=== PATIENT | female | born 1950 | race Hispanic/Latino ===

== ENCOUNTER → 2018-05-18 | Outpatient (CLI) | payer MEDICARE ==
[~2018-05-18] MED LIST: CRESTOR40 MG PO; LISINOPRIL5 MG PO; METFORMIN HCL500 MG PO
--- NOTE | 2018-05-18 10:44 | Diagnostic Imaging Report ---
Exam: Bilateral knees 3 views each History: Pain with walking Comparison: None. Findings: Left: No acute, displaced fracture or dislocation. Mild tricompartmental joint space narrowing and marginal osteophytosis. Atherosclerotic vascular calcifications. Soft tissues otherwise unremarkable. Right: No acute, displaced fracture or dislocation. Mild medial compartment predominant tricompartmental degenerative changes with marginal osteophytosis and joint space narrowing. Atherosclerotic vascular calcifications. No joint effusion. Impression: Symmetric bilateral mild tricompartmental osteoarthrosis. No acute osseous abnormalities. Atherosclerotic vascular disease. Signed by: Dr. Crow Mars M.D. on 05/18/2018 10:41 AM
== END ==
LOC: CARD 08:44
PROVIDERS: ATTEND Family Medicine
DX: I73.9 Peripheral vascular disease, unspecified (principal)
CPT/HCPCS: 93922; 93925

== ENCOUNTER → 2018-11-13 | Outpatient (CLI) | payer MEDICARE ==
--- NOTE | 2018-11-13 12:39 | Diagnostic Imaging Report ---
EXAMINATION: RIBS UNILAT W/CXR INDICATION: Left rib pain COMPARISON: Chest radiograph 05/21/2018 FINDINGS: LINES/TUBES:None LUNGS:The lungs are moderately inflated. Mild left lung base subsegmental atelectasis. No focal consolidation or pulmonary edema. PLEURA:No pleural effusion or pneumothorax. MEDIASTINUM:The cardiomediastinal silhouette appears normal in size and shape. BONES/SOFT TISSUES:No displaced rib fractures. ABDOMEN:No free air under the diaphragm. IMPRESSION: No displaced rib fracture. Subsegmental atelectasis at the left lung base. Signed by: Stacia Castelan MD on 11/13/2018 12:36 PM
--- NOTE | 2018-11-13 12:42 | Diagnostic Imaging Report ---
EXAMINATION: FOOT LEFT COMPLETE INDICATION: Left foot pain COMPARISON: None FINDINGS: Diffuse osteopenia. Diffuse soft tissue swelling. No acute fracture or dislocation. There is early callus formation at the lateral aspect of the shaft of the fifth metatarsal, consistent with healing fracture. Scattered degenerative changes. IMPRESSION: Early callus formation at the lateral aspect of the shaft of the fifth metatarsal consistent with healing fracture. Diffuse osteopenia and soft tissue swelling with no acute osseous injury. Signed by: Stacia Castelan MD on 11/13/2018 12:38 PM
== END ==
LOC: RAD 10:44
PROVIDERS: ATTEND Family Medicine
DX: R07.89 Other chest pain (principal); M79.672 Pain in left foot
CPT/HCPCS: 71101

== ENCOUNTER 2018-11-15 09:43 | Inpatient (IN) | payer MEDICARE ==
[~2018-11-15] VITALS: Ht 157.5 cm; Wt 101.2 kg
[2018-11-15] MEDS ORDERED: SODIUM CHLORIDE 0.9% 1000ML 1,000 ML IV STA (10:25)
[2018-11-15] MEDS ORDERED: KETOROLAC TROMETHAMINE 30 MG/ML VIAL IM ONE (11:00)
[2018-11-15] MEDS ORDERED: PIPERACILLIN/TAZO 2.25 GM 50 ML IV ONE (11:00)
[2018-11-15] MEDS ORDERED: ONDANSETRON HCL INJ 2MG/ML 2ML 2 MG/ML VIAL IV ONE (11:00)
[2018-11-15] MEDS ORDERED: VANCOMYCIN 1GM/NS 250 ML 250 ML IV ONE (11:30)
--- NOTE | 2018-11-15 12:00 | Diagnostic Imaging Report ---
Left tib-fib series, 2 views. History: Left lower extremity pain. Findings: There is diffuse soft tissue swelling and vascular calcification. The bones are osteopenic. There is no evidence of fracture or dislocation. There are no lytic or sclerotic lesions. Degenerative changes are noted in the knee and ankle joint. IMPRESSION: Diffuse soft tissue swelling and vascular calcification without acute osseous abnormality. Signed by: Perez Junior on 11/15/2018 11:56 AM
--- NOTE | 2018-11-15 12:03 | Diagnostic Imaging Report ---
Left foot, 3 views. History: Left foot pain. Findings: There is diffuse soft tissue swelling and gas or calcification. The bones are diffusely osteopenic. There is deformity of the left fifth metatarsal midshaft with no definite fracture line and possible surrounding callus. There are no lytic or sclerotic lesions. There are diffuse degenerative changes. Small plantar calcaneal spur is present. IMPRESSION: Left fifth metatarsal deformity, subacute versus chronic injury, difficult to determine acuity due to osteopenia. Recommend clinical correlation. Diffuse soft tissue swelling and vascular calcifications are noted. Signed by: Perez Junior on 11/15/2018 12:00 PM
--- NOTE | 2018-11-15 12:24 | Diagnostic Imaging Report ---
Left ankle, 3 views. History: Left ankle pain. Findings: There is diffuse soft tissue swelling and gas or calcification. The bones are diffusely osteopenic. There is no evidence of fracture or dislocation. There are no lytic or sclerotic lesions. There are mild degenerative changes. A plantar calcaneal spur is present. IMPRESSION: Soft tissue swelling and vascular calcifications without acute osseous abnormality. Signed by: Perez Junior on 11/15/2018 12:21 PM
[2018-11-15 12:30] LABS: BASOPHILS # (AUTO) 0.1 (0.0-0.1); BASOPHILS % 0.6 % (0.0-1.0); EOSINOPHILS # (AUTO) 0.1 (0.0-0.4); EOSINOPHILS % 0.4 % (0.0-6.0); HEMATOCRIT 38.9 % (34.2-44.1); HEMOGLOBIN 12.2 g/dL (12.0-16.0); LYMPHOCYTES # (AUTO) 2.6 (1.0-3.2); LYMPHOCYTES % 19.8 % (18.0-39.1); MEAN CORPUSCULAR HEMOGLOBIN 28.4 pg (28-32); MEAN CORPUSCULAR HGB CONC 31.4 g/dL (31-35); MEAN CORPUSCULAR VOLUME 90.5 fL (81-99); MONOCYTES % 7.4 % (4.4-11.3); NEUTROPHILS # (AUTO) 8.9 (2.1-6.9); NEUTROPHILS % 67.1 % (38.7-80.0); PLATELET COUNT 341 x10e3/uL (140-360); RED CELL DISTRIBUTION WIDTH 14.6 % (11.7-14.4)
[2018-11-15 12:48] LABS: INR 0.99; PARTIAL THROMBOPLASTIN TIME 31.7 seconds (23.8-35.5); PROTHROMBIN TIME 13.6 seconds (11.9-14.5)
[2018-11-15 12:55] LABS: ALBUMIN 2.3 g/dL (3.5-5.0); ALBUMIN/GLOBULIN RATIO 0.4 (0.8-2.0); ANION GAP 18.8 mmol/L (8-16); CALCIUM 10.3 mg/dL (8.4-10.2); CREATININE, SERUM 0.95 mg/dL (0.57-1.11); MAGNESIUM 1.2 MG/DL (1.3-2.1); POTASSIUM 3.8 mmol/L (3.5-5.1)
[2018-11-15] MEDS ORDERED: SODIUM CHLORIDE 0.9% 1000ML 1,000 ML IV SCH (13:42)
[2018-11-15] MEDS ORDERED: ONDANSETRON HCL INJ 2MG/ML 2ML 2 MG/ML VIAL IV PRN (13:45)
[2018-11-15] MEDS ORDERED: MORPHINE SULFATE 2 MG/ML SYR 1ML IV PRN (13:45)
[2018-11-15 14:28] LABS: BILIRUBIN,URINE SMALL (NEGATIVE); CLARITY,URINE SL CLOUDY (CLEAR); COLOR,URINE YELLOW (YELLOW); KETONES,URINE TRACE (NEGATIVE); LEUKOCYTE ESTERASE ,URINE SMALL (NEGATIVE); NITRITE,URINE NEGATIVE (NEGATIVE); PROTEIN,URINE DIPSTICK TRACE (NEGATIVE); URINE UROBILINOGEN 0.2 mg/dL (0.2 - 1)
[2018-11-15] MEDS ORDERED: VANCOMYCIN 1GM/NS 250 ML 250 ML IV SCH ×2 (14:30→21:00)
[2018-11-15] MEDS ORDERED: DEXTROSE 50% SYRINGE 50 ML IV PRN (14:30)
[2018-11-15 14:43] LABS: BACTERIA,URINE MODERATE /HPF; EPITHELIAL CELLS,URINE MODERATE /LPF; RBC,URINE 0-5 /HPF (0-5)
--- NOTE | 2018-11-15 15:15 | NUR ---
PT NOTED TO BE HYPOTENSIVE; / RUE AND / LUE, PT ASYMPTOMATIC, INFORMED ARNAV STEVEN AND RECEIVED ORDERS TO GIVE 1000 ML NS BOLUS AT THIS TIME; WILL CONTINUE TO MONITOR.
[2018-11-15] MEDS ORDERED: SODIUM CHLORIDE 0.9% 1000ML 1,000 ML ONE (15:17)
[2018-11-15] MEDS ORDERED: MAGNESIUM SULF 1GRAM/DEXTROSE 100 ML IV ONE (15:45)
[2018-11-15] MEDS: SODIUM CHLORIDE 0.9% 1000ML 1,000 ML IV SCH (16:58)
[2018-11-15] MEDS: INSULIN REGULAR, HUMAN 100 UNIT/1 ML 3ML VIAL SQ SCH ×2 (17:30→21:00)
--- NOTE | 2018-11-15 19:00 | NUR ---
PATIENT IS A NEW ADMIT THAT ARRIVED VIA STRETCHER. PATIENT IS AWAKE AND TALKING . PATIENT IS RESTING COMFORTABLY IN THE BED. BED IS IN THE LOWEST POSITION AND CALL MATTHEWS IS WITHIN REACH. WILL CONTINUE TO MONITOR PATIENT.
[2018-11-15 19:05] VITALS: BP 97/65
[2018-11-15 19:47] VITALS: BP 97/65
[2018-11-15 20:00] VITALS: BP 89/67
[2018-11-15] MEDS: PIPER-TAZ 3.375 GM 50 ML IV SCH (20:52)
[2018-11-15] MEDS: APIXABAN 5 MG TABLET PO SCH (20:52)
[2018-11-15] MEDS ORDERED: NON-FORMULARY MEDICATION (Rosuvastatin Calcium (Crestor) 40 MG) PO SCH (21:00)
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
--- NOTE | 2018-11-15 22:48 | History and Physical ---
PRIMARY CARE PHYSICIAN: Dr. Alex Dumont. CHIEF COMPLAINT: Left lower extremity pain and swelling. HISTORY OF PRESENT ILLNESS: This is a 68-year-old female with past medical history of hypertension, diabetes type 2 complicated by PVDs, high cholesterol, and a long history of DVT about 40 years ago. She presented with left lower extremity redness, swelling, and pain that has been going on for 2 weeks per patient. She failed outpatient p.o. antibiotic treatment with clindamycin and Bactrim. She was sent by her PCP for worsening PVDs and cellulitis. Upon arrival to the ER, her temperature was 101.5, pulse was 129, and blood pressure 127/67. Sepsis due to cellulitis PAST MEDICAL HISTORY: 1. Hypertension. 2. Diabetes type 2 with PVDs. 3. High cholesterol. 4. A 40-year history of chronic DVT. PAST SURGICAL HISTORY: She had 2 C sections, right eye cataract, and hernia repair. FAMILY MEDICAL HISTORY: Father had heart disease. Does not know of mother's medical conditions. SOCIAL HISTORY: She denies any tobacco use, alcohol, or drug use. She lives with her and son. She is retired. ALLERGIES: SHE IS ALLERGIC TO A STATIN. REVIEW OF SYSTEMS: GENERAL: No acute distress. HEENT: No head trauma. LUNGS: No shortness of breath or cough. CARDIOVASCULAR: No chest pain or palpitations. GI: No nausea, vomiting. NEUROLOGIC: Alert and oriented. MUSCULOSKELETAL: Left lower extremity redness and pain with ambulation. SKIN: Redness of the left lower extremity, bruising, multiple rashes on the lower extremities and healing rash and a small hematoma on the camara of her left leg. PHYSICAL ASSESSMENT: VITAL SIGNS: Temperature is 101.5, pulse is 129, respirations 20, blood pressure , pulse ox 96% on 2 L O2 via nasal cannula. GENERAL: No acute distress, fever. HEENT: Normocephalic. NECK: Supple and midline. Atraumatic. LUNGS: Clear to auscultation. CARDIOVASCULAR: Normal rate and rhythm. GI: Soft and nontender. NEURO: Alert, awake, oriented x3. MUSCULOSKELETAL: She uses walker. Left lower extremity edema, redness, and pain. SKIN: Multiple healing rashes on bilateral lower extremities. Left lower extremities with redness and hematoma on the camara. Swelling of the heel noted. LABORATORY DATA: WBC 13.22, hemoglobin 12.2, platelets 341. Sodium 137, potassium 3.8, CO2 of 22, anion gap 18.8. Bun is 12, creatinine is 0.95. Estimated GFR 59, glucose 146. BNP is 33.9, globulin is 5.6. PT 13.6, INR 0.99, aPTT 31.7. UA, clarity is cloudy, trace protein and ketones. Small leukocyte esterase, 11 to 20 WBCs and moderate bacteria. Blood cultures are pending. IMAGING: X-ray of the lower extremity shows diffuse soft tissue swelling and vascular calcification without acute osseous abnormalities. Ankle x-ray shows same thing with soft tissue swelling. Venous Doppler preliminary report showed chronic DVT, but we will await for final studies. IMPRESSION AND PLAN: 1. Sepsis due to left lower extremity cellulitis. At present on admission, blood culture sent, started on IV fluids, IV antibiotics. We will check lactic acid. We will monitor on cardiac telemetry. 2. Failed outpatient treatment of cellulitis. We will continue with vancomycin and Zosyn for cellulitis. Also, suspect peripheral vascular diseases. Dr. Ndiaye has been consulted for evaluation of further workup. 3. Hypertension. We will continue with lisinopril. 4. Diabetes type 2. We will continue with Accu-Chek a.c. and at bedtime with sliding scale insulin coverage. 5. Hyperlipidemia, states is allergic to statins. 6. History of peripheral vascular diseases per PCP. We will have Dr. Ndiaye evaluate. 7. Tachycardia, sinus, likely due to sepsis. We will continue with IV fluid hydration and antibiotics and monitor. 8. Deep venous thrombosis prophylaxis where we will hold chemical anticoagulation due to possible vascular workup. 9. Morbid obesity with a BMI of 36.4. Needs lifestyle modification. Dictated by GEORGE Chew Javi Blake MD MY/MODL /[id number]
[2018-11-15] MEDS: VANCOMYCIN 1GM/NS 250 ML 250 ML IV SCH (23:50)
[2018-11-16] VITALS (8 sets, daily range): BP systolic 111–133; BP diastolic 56–97
[2018-11-16] MEDS: SODIUM CHLORIDE 0.9% 1000ML 1,000 ML IV SCH ×3 (01:45→21:15)
[2018-11-16] MEDS: PIPER-TAZ 3.375 GM 50 ML IV SCH ×4 (05:27→21:15)
[2018-11-16 05:53] LABS: BASOPHILS % 0.5 % (0.0-1.0); EOSINOPHILS # (AUTO) 0.1 (0.0-0.4); EOSINOPHILS % 1.4 % (0.0-6.0); LYMPHOCYTES # (AUTO) 1.7 (1.0-3.2); LYMPHOCYTES % 21.8 % (18.0-39.1); MEAN CORPUSCULAR HEMOGLOBIN 28.6 pg (28-32); MEAN CORPUSCULAR HGB CONC 30.7 g/dL (31-35); MEAN CORPUSCULAR VOLUME 93.2 fL (81-99); MONOCYTES # (AUTO) 0.6 (0.2-0.8); MONOCYTES % 7.3 % (4.4-11.3); NEUTROPHILS % 64.3 % (38.7-80.0); PLATELET COUNT 280 x10e3/uL (140-360); RED BLOOD COUNT 3.22 x10e6/uL (3.6-5.1); RED CELL DISTRIBUTION WIDTH 14.6 % (11.7-14.4)
[2018-11-16 06:01] LABS: HEMOGLOBIN 9.2 g/dL (12.0-16.0)
[2018-11-16 06:11] LABS: ALANINE AMINOTRANSFERASE 12 IU/L (0-55); ALBUMIN 1.7 g/dL (3.5-5.0); ALBUMIN/GLOBULIN RATIO 0.4 (0.8-2.0); ALKALINE PHOSPHATASE 123 IU/L (40-150); ANION GAP 13.6 mmol/L (8-16); BLOOD UREA NITROGEN 13 mg/dL (7-26); BUN/CREATININE RATIO 14 (6-25); CALCIUM 8.7 mg/dL (8.4-10.2); CARBON DIOXIDE 21 mmol/L (22-29); CHLORIDE 105 mmol/L (98-107); EST GLOMERULAR FILTRATION RATE > 60 ML/MIN (60-); GLUCOSE 109 mg/dL (74-118); POTASSIUM 3.6 mmol/L (3.5-5.1); SODIUM 136 mmol/L (136-145)
--- NOTE | 2018-11-16 07:15 | NUR ---
received am report from nurse and morning rounds done. pt is sleeping with no s/s of distress. call light is within reach and side rails are up
--- NOTE | 2018-11-16 07:20 | NUR ---
report given to day nurse. patient is resting comfortably in bed. bed is in lowest position and call light is within reach.
[2018-11-16] MEDS: INSULIN REGULAR, HUMAN 100 UNIT/1 ML 3ML VIAL SQ SCH ×4 (07:30→20:40)
[2018-11-16] MEDS ORDERED: NON-FORMULARY MEDICATION (Lisinopril 5 MG) PO SCH (09:00)
[2018-11-16 09:25] LABS: EOSINOPHILS % (MANUAL) 1 % (0-7); LYMPHOCYTES % (MANUAL) 32 % (19-48)
[2018-11-16 09:26] LABS: PLATELET ESTIMATE ADEQUATE; PLATELET MORPHOLOGY COMMENT NORMAL; RBC MORPHOLOGY COMMENT NORMAL
[2018-11-16 09:27] LABS: MONOCYTES % (MANUAL) 4 % (3.4-9.0); NEUTROPHILS % (MANUAL) 63 % (40-74)
[2018-11-16] MEDS: APIXABAN 5 MG TABLET PO SCH (09:29)
[2018-11-16] MEDS: LISINOPRIL 2.5 MG TAB PO SCH (09:30)
[2018-11-16] MEDS ORDERED: APIXABAN 5 MG TABLET PO SCH (13:45)
[2018-11-16] MEDS: VANCOMYCIN 1GM/NS 250 ML 250 ML IV SCH (13:50)
--- NOTE | 2018-11-16 19:19 | Progress Note ---
DATE: 11/16/2018 CHIEF COMPLAINT: Left lower extremity pain and edema. SUBJECTIVE: Left lower extremity redness improved. Pain mildly improved, rating it 8/10. Still unable to walk. No other reports. PHYSICAL EXAMINATION: VITAL SIGNS: Temperature 99.4, pulse is 113, respirations 18, blood pressure is 131/57, and pulse ox is 90% on 2 liters of O2. GENERAL: No acute distress. HEENT: Normocephalic and atraumatic. LUNGS: Clear to auscultation. CARDIOVASCULAR: Normal rate and rhythm. ABDOMEN: Soft and nontender. NEUROLOGIC: Alert, awake, and oriented x3. MUSCULOSKELETAL: Left lower extremity edema noted +2 with redness and bruising. SKIN: Healing rash is noted on the bilateral lower extremities. Small hematoma noted on the camara of the left lower extremity. Redness improving in the lower extremities. LABORATORY DATA: WBC is 7.72, hemoglobin 9.2, hematocrit 30, and platelets 280. Sodium 136, potassium 3.6, BUN is 13, creatinine 0.9, estimated GFR greater than 60, and lactic acid 10. IMPRESSION: 1. Sepsis on admission due to failed outpatient left lower extremity cellulitis. Continue with IV antibiotics, lactic acid within normal limits, we will continue IV fluid hydration. 2. Hypertension, stable on lisinopril. 3. Acute deep vein thrombosis on the femoral vein. We will await Cardiology recommendations. 4. Diabetes type 2. Accu-Chek before meals and at bedtime with sliding scale insulin coverage. 5. High cholesterol. She is allergic to statin. Lifestyle modifications. 6. History of peripheral arterial disease. Further workup per Dr. Ndiaye. 7. Morbid obesity with BMI of 36.4. Lifestyle modification. 8. Anemia with a hemoglobin of 9.2. Likely due to hemodilution. We will continue to monitor. Pending fecal occult blood. PLAN: Continue IV antibiotics, IV fluids and pending echocardiogram. Further recommendations per Cardiology. Dictated by GEORGE Chew Javi Blake MD MY/MODL /[id number]
[2018-11-16] MEDS: ACETAMINOPHEN/CODEINE 300MG - 30MG TAB PO PRN (20:40)
--- NOTE | 2018-11-16 20:40 | NUR ---
PATIENT IS AOX3, NO SIGNS OF DISTRESS NOTED. FAMILY MEMBERS PRESENT AT BEDSIDE AND PATIENT VOICES PAIN OF 8 AND WAS MEDICATED ORDERED. BED IS IN LOWEST POSITION AND LOCKED BOTH SIDE RAILS ARE UP, CALL LIGHT WITHIN REACH, WILL CONTINUE TO MONITOR.
--- NOTE | 2018-11-16 22:14 | Progress Note ---
DATE: 11/16/2018 Cardiology Progress Note SUBJECTIVE: Zaynab denies of any chest discomfort or shortness of breath today. Her leg edema is stable bilaterally. The erythema to the left leg is improving. She has no other complaints today. She denies any gross bleeding that she has observed so far. OBJECTIVE: VITAL SIGNS: Temperature 99.4, heart rate 113, blood pressure 131/57, respiratory rate 18, and O2 saturation 90%. BMI 36. GENERAL: In no acute distress, alert. NECK: No JVD. CHEST: Clear to auscultation. CARDIOVASCULAR: Regular rate and rhythm. Normal S1 and S2. No S3 or S4. ABDOMEN: Soft, nontender. Bowel sounds positive. EXTREMITIES: With 1+ edema in bilateral lower extremities. SKIN: With erythema, particularly most pronounced to the left lower half of leg and ecchymosis to the left anterior camara. NEUROLOGIC: Normal speech. PSYCHIATRIC: Normal affect and mood. CARDIOVASCULAR MEDICATIONS: Reviewed. Lisinopril mg daily. Eliquis 10 mg every 12 hours, which will be held. Zosyn and vancomycin. STUDIES: Reviewed. Sodium 134, potassium 3.6, chloride 105, bicarbonate 21, BUN 13, creatinine 0.9, glucose 109. White blood cells 7.7, hemoglobin 9.2, platelets 280. INR 0.9. AST 14, ALT 12, total bilirubin 0.7. ASSESSMENT: A 68-year-old woman presents with left leg cellulitis, [id number] common femoral vein with partial thrombosis and bilateral chronic popliteal vein thrombosis re-cannulized, diabetes mellitus type 2, hypertension, dyslipidemia, morbid obesity, and arterial Doppler concerning for outflow dz to B posterior tibial arteries. Noted to have acute hemoglobin drop from 12 to 9 in the setting of recent anticoagulation initiation. RECOMMENDATIONS: 1. Fecal occult blood test. 2. Continue to monitor H and H closely. 3. Consider GI consultation. 4. Hold Eliquis for now given possible acute GI bleed. 5. If H and H drops less than 7, consider PRBC transfusion. 6. Continue rest of cardiovascular medications. 7. Further recommendations to follow pending the patient's clinical course, particularly with a new finding of acute hemoglobin drop workup. Srinivas Khalil MD AFV/MODL /[id number] MTDD
[2018-11-17] VITALS (9 sets, daily range): BP systolic 90–123; BP diastolic 49–60
[2018-11-17] MEDS: VANCOMYCIN 1GM/NS 250 ML 250 ML IV SCH (01:01)
[2018-11-17] MEDS: SODIUM CHLORIDE 0.9% 1000ML 1,000 ML IV SCH (05:02)
[2018-11-17 06:11] LABS: BASOPHILS # (AUTO) 0.1 (0.0-0.1); BASOPHILS % 0.6 % (0.0-1.0); EOSINOPHILS # (AUTO) 0.2 (0.0-0.4); EOSINOPHILS % 2.1 % (0.0-6.0); HEMATOCRIT 32.1 % (34.2-44.1); HEMOGLOBIN 9.6 g/dL (12.0-16.0); LYMPHOCYTES % 25.5 % (18.0-39.1); MEAN CORPUSCULAR HEMOGLOBIN 28.5 pg (28-32); MEAN CORPUSCULAR HGB CONC 29.9 g/dL (31-35); MEAN CORPUSCULAR VOLUME 95.3 fL (81-99); MONOCYTES # (AUTO) 0.7 (0.2-0.8); MONOCYTES % 8.8 % (4.4-11.3); NEUTROPHILS # (AUTO) 4.6 (2.1-6.9); NEUTROPHILS % 57.5 % (38.7-80.0); PLATELET COUNT 294 x10e3/uL (140-360); RED BLOOD COUNT 3.37 x10e6/uL (3.6-5.1); RED CELL DISTRIBUTION WIDTH 14.6 % (11.7-14.4)
[2018-11-17] MEDS: PIPER-TAZ 3.375 GM 50 ML IV SCH ×3 (06:22→22:00)
[2018-11-17 06:29] LABS: ANION GAP 15.6 mmol/L (8-16); BLOOD UREA NITROGEN 8 mg/dL (7-26); BUN/CREATININE RATIO 9 (6-25); CALCIUM 8.8 mg/dL (8.4-10.2); CARBON DIOXIDE 20 mmol/L (22-29); CHLORIDE 106 mmol/L (98-107); CREATININE, SERUM 0.89 mg/dL (0.57-1.11); EST GLOMERULAR FILTRATION RATE > 60 ML/MIN (60-); GLUCOSE 104 mg/dL (74-118); POTASSIUM 3.6 mmol/L (3.5-5.1); SODIUM 138 mmol/L (136-145)
--- NOTE | 2018-11-17 07:00 | NUR ---
RECEIVED REPORT FROM OFF GOING NURSE. WALKING ROUNDS DONE. PATIENT IS RESTING IN BED. NO ACUTE DISTRESS NOTED. FAMILY MEMBER AT BEDSIDE. CALL LIGHT WITHIN REACH. BED IN THE LOWEST POSITION.
[2018-11-17] MEDS: INSULIN REGULAR, HUMAN 100 UNIT/1 ML 3ML VIAL SQ SCH ×4 (07:30→20:44)
[2018-11-17] MEDS: LISINOPRIL 2.5 MG TAB PO SCH (08:44)
[2018-11-17] MEDS ORDERED: LACTULOSE SYRUP 20 GM/30 ML UDC PO NR (12:00)
--- NOTE | 2018-11-17 12:30 | NUR ---
NOTIFIED PATIENT THAT HUMAN RESOURCE ADVISER ORDERED A ONE TIME DOSE OF LACTULOSE, PER PATIENT SHE WILL LIKE TO WAIT UNTIL DAUGHTER GETS HERE.
--- NOTE | 2018-11-17 12:41 | Progress Note ---
DATE: 11/17/2018 Cardiology Progress Note SUBJECTIVE: Denies chest pain or shortness of breath, lightheadedness or syncope. Denies any gross bleeding. Can encourage the patient on importance of fecal occult blood testing KASHMIR, pending this resuming anticoagulation if negative. OBJECTIVE: VITAL SIGNS: Temperature 97.5, heart rate 103, blood pressure 106/60, respiratory rate 18, and O2 saturation 95%. GENERAL: No acute distress. Alert. NECK: No JVD. CHEST: Clear to auscultation. CARDIOVASCULAR: Regular rate and rhythm. Normal S1 and S2. No S3 or S4. ABDOMEN: Soft, nontender. Bowel sounds positive. EXTREMITIES: 1+ edema to bilateral lower extremities. Left lower leg erythema and ecchymosis in the anterior left camara. CARDIOVASCULAR MEDICATIONS: Reviewed. 1. Lisinopril 5 mg daily. 2. Eliquis 10 mg every 12 hours, currently on hold, pending FOBT check. STUDIES: Reviewed. Sodium 138, potassium 3.6, chloride 106, bicarbonate 20, BUN 8, creatinine 0.89, glucose 106. White blood cell 7.9, hemoglobin 9.6, stable compared to yesterday at 9.2, platelets 294. INR is 0.9, PT 13.6, PTT 31.7. AST 14, ALT 12, alkaline phosphatase 123, total bilirubin 0.7. ASSESSMENT: A 68-year-old woman, presents with left leg cellulitis and ecchymosis, chronic popliteal recanalized thrombosis bilaterally and right bknhu-er-[id number] common femoral vein deep vein thrombosis, acute drop in hemoglobin, sepsis, hypertension. RECOMMENDATIONS: 1. Hold anticoagulants, pending FOBT, resume if negative. 2. Continue antibiotics. 3. Continue antihypertensives. 4. No arrhythmias on telemetry, so far in sinus rhythm and sinus tachycardia observed. Srinivas Khalil MD AFTy/PRECIOUS /[id number]
--- NOTE | 2018-11-17 13:22 | NUR ---
NOTIFIED DR. SNOW'S ORACLE SOA DEVELOPER, ABOUT VANC TROUGH BEING 22.6. PER ORACLE SOA DEVELOPER CHANGE CURRENT DOSE TO Q24H INSTEAD OF Q12H, STARTING TOMORROW AT 0100. ORDER CHANGED.
--- NOTE | 2018-11-17 13:27 | Progress Note ---
DATE: 11/17/2018 CHIEF COMPLAINT: Left lower extremity edema and pain. SUBJECTIVE: Left lower extremity redness is improving. Still pain with ambulation. She was noted to have hypoxia on room air at rest and with exertion. PHYSICAL EXAMINATION: VITAL SIGNS: Temperature is 99.8, pulse is 116, respirations 18, blood pressure is 106/53, and pulse ox is 79 on room air and 92 on nasal cannula. GENERAL: No acute distress. HEENT: Normocephalic and atraumatic with PERRLA. LUNGS: Decreased breath sounds. CARDIOVASCULAR: Normal rate and rhythm. Generalized edema noted. ABDOMEN: Soft and nontender. Obese. NEUROLOGIC: Alert, awake, and oriented x3. MUSCULOSKELETAL: Left lower extremity edema, greater than the right. Active ROM. Unable to walk due to pain. SKIN: Has healing rash on bilateral lower extremities. Left lower extremity arrhythmia is improving. Hematoma noted on camara. LABORATORY DATA: WBC is 7.99, hemoglobin is 9.6, hematocrit is 32.1, and platelet is 294. Sodium is 138, potassium is 3.6, CO2 is 20, creatinine is 0.89, estimated GFR is greater than 60. Blood sugar is well controlled. IMPRESSION: 1. Sepsis on admission due to left lower extremity cellulitis. Failed outpatient p.o. treatment. We will continue with IV antibiotics and IV fluid hydration. 2. Hypertension, stable. We will discontinue lisinopril for now. 3. Acute deep venous thrombosis. We will await on Cardiology recommendation on anticoagulation due to anemia. 4. Anemia. Hemoglobin 9.6. Pending fecal occult and we will monitor closely. 5. Diabetes type 2. We will continue sliding scale insulin coverage. 6. High cholesterol. Family reports allergy to statin. We will continue lifestyle modifications. 7. History of peripheral arterial disease. Defer workup to Dr. Ndiaye. 8. Morbid obesity with BMI of 36, lifestyle modification. 9. Hypoxia, on room air. A 79% on room air noted. We will check chest x-ray, pending echocardiogram, also noted generalized edema. We will decrease IV fluid. Dictated by GEORGE Chew Nedraching Uche Blake MD MY/MODL /[id number]
--- NOTE | 2018-11-17 14:58 | Diagnostic Imaging Report ---
EXAMINATION: CHEST SINGLE (PORTABLE) INDICATION: ^hypoxia ^[id number] ^[id number] COMPARISON: RIBS x-ray 11/13/2018 FINDINGS: AP view TUBES and LINES: None. LUNGS: Lungs are well inflated. Bilateral reticular opacities of the lungs, mainly in the perihilar regions and left lower lobe. PLEURA: No pleural effusion or pneumothorax. HEART AND MEDIASTINUM: Stable mild enlargement of the cardiac silhouette. BONES AND SOFT TISSUES: No acute osseous lesion. Soft tissues are unremarkable. UPPER ABDOMEN: No free air under the diaphragm. IMPRESSION: Interval development of bilateral reticulations of the lungs are suggestive of pulmonary edema. Superimposed left lower lobe pneumonia cannot be excluded. Continue to follow-up. Signed by: Dr. Nataly Chambers M.D. on 11/17/2018 2:55 PM
[2018-11-17] MEDS ORDERED: FUROSEMIDE INJ 10 MG/ML 2 ML VIAL IV NR (15:30)
[2018-11-17] MEDS: ACETAMINOPHEN 325 MG TAB PO PRN (15:52)
[2018-11-17] MEDS: DOCUSATE SODIUM 100 MG CAP PO SCH (17:33)
--- NOTE | 2018-11-17 19:26 | NUR ---
Report given to oncoming nurse. Walking rounds done. Patient is resting in bed. No acute distress noted at this time. Family at bedside. Call light within reach. Bed in the lowest position.
--- NOTE | 2018-11-17 19:48 | NUR ---
RECEIVED PT IN BED AOX3 DENIES PAIN RESPIRATIONS ARE EVEN AND UNLABORED .LEFT AC 20 G S/L LEFT HEEL RED AND SWOLLEN LOWER BILATERAL LEGS ARE SWOLLEN.TELE #12 ST .CALL LIGHT WITH IN REACH .CONTINUE TO MONITOR
[2018-11-18] VITALS (17 sets, daily range): BP systolic 89–112; BP diastolic 42–70
[2018-11-18] MEDS: VANCOMYCIN 1GM/NS 250 ML 250 ML IV SCH (01:00)
[2018-11-18] MEDS: PIPER-TAZ 3.375 GM 50 ML IV SCH ×3 (06:00→21:10)
--- NOTE | 2018-11-18 07:00 | NUR ---
RECEIVED PATIENT RESTING IN BED. NO ACUTE DISTRESS NOTED, RESPIRATIONS EVEN AND UNLABORED. CALL LIGHT WITHIN REACH. BED IN THE LOWEST POSITION.
--- NOTE | 2018-11-18 07:18 | NUR ---
PT RESTED DURING THE NIGHT .DENIES PAIN .FAMILY ATTHE BEDSIDE .CALL LIGHT WITH IN REACH .BEDSIDE REPORT GIVEN TO THE ONCOMING NURSE
[2018-11-18] MEDS: INSULIN REGULAR, HUMAN 100 UNIT/1 ML 3ML VIAL SQ SCH ×4 (07:30→21:00)
[2018-11-18] MEDS: DOCUSATE SODIUM 100 MG CAP PO SCH ×2 (08:48→16:54)
[2018-11-18] MEDS: LISINOPRIL 2.5 MG TAB PO SCH (08:56)
[2018-11-18 13:28] LABS: BASOPHILS % 0.4 % (0.0-1.0); EOSINOPHILS # (AUTO) 0.2 (0.0-0.4); EOSINOPHILS % 1.9 % (0.0-6.0); HEMATOCRIT 33.8 % (34.2-44.1); HEMOGLOBIN 10.4 g/dL (12.0-16.0); LYMPHOCYTES # (AUTO) 1.5 (1.0-3.2); LYMPHOCYTES % 14.1 % (18.0-39.1); MEAN CORPUSCULAR HEMOGLOBIN 28.3 pg (28-32); MEAN CORPUSCULAR HGB CONC 30.8 g/dL (31-35); MEAN CORPUSCULAR VOLUME 92.1 fL (81-99); MONOCYTES # (AUTO) 0.7 (0.2-0.8); MONOCYTES % 6.8 % (4.4-11.3); NEUTROPHILS # (AUTO) 8.1 (2.1-6.9); NEUTROPHILS % 74.4 % (38.7-80.0); PLATELET COUNT 380 x10e3/uL (140-360); RED BLOOD COUNT 3.67 x10e6/uL (3.6-5.1); RED CELL DISTRIBUTION WIDTH 14.6 % (11.7-14.4)
--- NOTE | 2018-11-18 13:36 | Progress Note ---
DATE: 11/18/2018 CHIEF COMPLAINT: Bilateral lower extremity edema and left lower extremity redness and pain. SUBJECTIVE: Seen sitting up in a recliner. Generalized edema is improved. She denies any shortness of breath, fever, chills, nausea, or vomiting. Oxygen is 90% on room air. PHYSICAL EXAMINATION: VITAL SIGNS: Temperature is 97.6, pulse is 118, respirations 20, blood pressure 96/50, and pulse ox is 90% on room air. GENERAL: No acute distress. HEENT: Normocephalic and atraumatic. LUNGS: Clear to auscultation. CARDIOVASCULAR: Normal rate and rhythm. Edema is improving. ABDOMEN: Soft and nontender. NEUROLOGIC: Alert, awake, and oriented x3. MUSCULOSKELETAL: Left lower extremity edema greater than right, redness noted and has charcoal feet. SKIN: Has a healing rash on her right lower extremity. Left lower extremity noted redness, hematoma noted on camara. IMAGING AND LABORATORY DATA: Imaging done on 11/17/2018 showed interval development of pulmonary edema and superimposed left lower lobe pneumonia could not be excluded. Labs have been reviewed. Stool occult is positive, but no visible blood. IMPRESSION: 1. Sepsis on admission due to left lower extremity cellulitis. We will continue with IV antibiotics and stop IV fluid hydration. 2. Hypertension, now hypotensive. 3. Pulmonary edema, likely due to diastolic congestive heart failure. We will start on Lasix 20 mg p.o. and repeat chest x-ray. 4. Acute deep venous thrombosis. We will repeat CBC today. 5. Anemia. Hemoglobin yesterday was 9.6. Fecal occult culture was positive. We will repeat CBC today and monitor the need for GI workup. 6. Diabetes type 2. We will continue with sliding scale insulin coverage. 7. High cholesterol. Lifestyle modifications as she is allergic to statins. 8. History of peripheral arterial disease/peripheral vascular disease. Defer workup to Dr. Ndiaye with Cardiology. 9. Morbid obesity with BMI of 36. Lifestyle modifications discussed. PLAN: We will repeat CBC today, and chest x-ray. We will start on Lasix. Dictated by GEORGE Chew Nedraching Uche Blake MD MY/MODL /[id number]
--- NOTE | 2018-11-18 14:06 | Progress Note ---
DATE: 11/18/2018 Cardiology Progress Note SUBJECTIVE: Nauseated and vomiting. Denies any chest pain or shortness of breath. OBJECTIVE: VITAL SIGNS: Temperature 97.6, heart rate 119, blood pressure 96/50, respiratory rate 20, and O2 saturation 98%. GENERAL: In mild distress. NECK: No JVD. CHEST: Clear to auscultation. CARDIOVASCULAR: Regular rate and rhythm. Normal S1 and S2. No S3 or S4, ABDOMEN: Soft. Bowel sounds positive. EXTREMITIES: With 2+ edema. Erythema to left leg. Ecchymosis to left anterior camara. CARDIOVASCULAR MEDICATIONS: Reviewed. Lisinopril 5 mg daily, Eliquis on hold 10 mg every 12 hours. STUDIES: Sodium 138, potassium 3.6, chloride 106, bicarbonate 20, BUN 8, creatinine 0.89, and glucose 104. Occult BT positive. White blood cell 7.9, hemoglobin 9.6, and platelets 294. INR 0.9, PT 13.6, and PTT 31.7. AST 14, ALT 12, alkaline phosphatase 123, and total bilirubin 0.7. ASSESSMENT: 1. 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 2. Left leg cellulitis. 3. Hypertension. 4. Diabetes. 5. Dyslipidemia. RECOMMENDATIONS: Discussed indications, alternatives, risks, and benefits for IVC filter placement given GI bleed and indication for anticoagulation with proximal iliofemoral thrombosis. The patient's family voiced understanding and agreed to proceed. We will schedule. For now, continue to hold anticoagulation, consider GI consultation, and continue rest of cardiovascular medications. MD DAVID Graves/PRECIOUS /[id number]
[2018-11-18] MEDS ORDERED: LIDOCAINE HCL 2% LOCAL 20 ML VIAL ONE (14:12)
[2018-11-18] MEDS ORDERED: HEPARIN SOD/SOD CHLORIDE 2,000 ML ONE (14:12)
[2018-11-18] MEDS ORDERED: HEPARIN SOD (PORCINE) 1000 UNIT/ML 30ML ONE (14:17)
[2018-11-18] MEDS ORDERED: FENTANYL CITRATE/PF 100MCG/2 ML INJ ONE (14:17)
[2018-11-18] MEDS ORDERED: IOPAMIDOL 370 MG/ML 200 ML INFUS..BTL INJ ONE (14:17)
[2018-11-18] MEDS ORDERED: MIDAZOLAM HCL 2 MG/2 ML VIAL ONE (14:17)
[2018-11-18] MEDS ORDERED: NITROGLYCERIN/D5W 200 MCG/ML 0 ML ONE (14:17)
[2018-11-18] MEDS ORDERED: SODIUM CHLORIDE 0.9% 1000ML 1,000 ML ONE (14:17)
--- NOTE | 2018-11-18 14:28 | NUR ---
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
[2018-11-18] MEDS ORDERED: ATROPINE SULFATE 0.1 MG/ML 10ML SYR ONE (15:34)
--- NOTE | 2018-11-18 16:00 | NUR ---
RECEIVED PATIENT FROM SPECIFICATION MANAGER. VITAL SIGNS DONE AT THIS TIME. BILATERAL PEDAL PULSES ASSESSED AND WEAK.
--- NOTE | 2018-11-18 16:15 | NUR ---
VS AND PEDAL PULSES ASSESSED BILATERALLY. PULSES ARE WEAK, NO CHANGE FROM INITIAL ASSESSMENT.
[2018-11-18 16:44] LABS: EOSINOPHILS % (MANUAL) 1 % (0-7); HYPOCHROMASIA SLIGHT; LYMPHOCYTES % (MANUAL) 13 % (19-48); MONOCYTES % (MANUAL) 7 % (3.4-9.0); NEUTROPHILS % (MANUAL) 76 % (40-74); PROMYELOCYTES % (MANUAL) 2 % (0-0)
[2018-11-18 16:45] LABS: PLATELET ESTIMATE SLIGHTLY INCREASED; PLATELET MORPHOLOGY COMMENT FEW EDTA CLUMPING; RBC MORPHOLOGY COMMENT NORMAL
--- NOTE | 2018-11-18 17:37 | Operative Report ---
DATE OF PROCEDURE: 11/18/2018 SURGEON: Srinivas Khalil MD PROCEDURE INDICATION: The patient with iliofemoral DVT, acute presenting with hemoglobin drop after initiating anticoagulation and fecal occult blood test positive consistent with GI bleed limiting anticoagulation. PROCEDURES PERFORMED: 1. Retrievable Sterling IVC filter implant via femoral approach (Marlene vena cava filter reference catalog number [id number], which is an MRI conditional lot number [id number], implant date 11/18/2018). 2. Venogram. 3. Manual pressure hemostasis. PROCEDURE COMPLICATIONS: None. ESTIMATED BLOOD LOSS: Less than 15 mL. PROCEDURE SUMMARY: After consent was obtained, the patient was prepped and draped in a sterile fashion. The left femoral site was locally infiltrated with 2% lidocaine and access was obtained using a micropuncture kit. Initial access was arterial, however, therefore a 4-Kinyarwanda small sheath was advanced and access was obtained. The IVC filter delivery sheath was advanced over a leading J-wire. After confirmation of renal vein right and left position, it was decided to implant the device infrarenally with retrieval of the system of the delivery system once the filter was positioned, just inside the tip of the liver sheath. Once completely on sheath then position confirmed the device was unhooked and freed up. Position was again confirmed with a venogram and successful adequate position in the infrarenal IVC. Manual pressure hemostasis was applied to the left femoral site. CONCLUSION: Successful delivery of Marlene retrievable IVC filter via femoral approach. RECOMMENDATIONS: Once GI workup completed and if reversible etiology for bleeding can be treated, the patient becomes candidate for anticoagulation. I have advised the patient as well as family member on IVC filter retrieval via jugular vein approach at a later date. The importance of this was stressed to avoid any late IVC filter related complications. Srinivas Khalil MD AFV/MODL /[id number]
--- NOTE | 2018-11-18 19:09 | NUR ---
REPORT GIVEN TO ONCOMING NURSE. WALKING ROUNDS DONE. PATIENT IS RESTING IN BED. NO ACUTE DISTRESS NOTED. PEDAL PULSES ASSESSED WITH ONCOMING NURSE. CALL LIGHT WITHIN REACH. BED IN THE LOWEST POSITION.
[2018-11-18] MEDS: APIXABAN 5 MG TABLET PO SCH (20:30)
--- NOTE | 2018-11-18 20:30 | NUR ---
PATIENT IN STABLE CONDITION NO SIGNS OF DISTRESS NOTED. NASAL CANNULA INTACT AND RUNNING AT 2 LITERS, PATIENT HEAD OF BED ELEVATED AFTER LYING FLAT FROM PREVIOUS PROCEDURE. SITE ON LEFT GROIN IS DRY AND CLEAN. BED IS LOCKED AND LOW, BOTH SIDE RAILS ARE UP, CALL LIGHT WITHIN REACH, WILL CONTINUE TO MONITOR.
[2018-11-19] VITALS (7 sets, daily range): BP systolic 88–103; BP diastolic 44–56
[2018-11-19] MEDS: VANCOMYCIN 1GM/NS 250 ML 250 ML IV SCH (01:43)
[2018-11-19] MEDS: ACETAMINOPHEN/CODEINE 300MG - 30MG TAB PO PRN (01:44)
[2018-11-19] MEDS: PIPER-TAZ 3.375 GM 50 ML IV SCH ×3 (06:36→21:48)
[2018-11-19] MEDS: INSULIN REGULAR, HUMAN 100 UNIT/1 ML 3ML VIAL SQ SCH ×4 (07:55→21:03)
[2018-11-19] MEDS: DOCUSATE SODIUM 100 MG CAP PO SCH ×2 (08:41→17:41)
[2018-11-19] MEDS: LISINOPRIL 2.5 MG TAB PO SCH (09:00)
[2018-11-19 12:27] LABS: BASOPHILS % 0.5 % (0.0-1.0); EOSINOPHILS # (AUTO) 0.2 (0.0-0.4); EOSINOPHILS % 2.4 % (0.0-6.0); HEMATOCRIT 30.4 % (34.2-44.1); LYMPHOCYTES # (AUTO) 1.3 (1.0-3.2); LYMPHOCYTES % 16.8 % (18.0-39.1); MEAN CORPUSCULAR HEMOGLOBIN 28.6 pg (28-32); MEAN CORPUSCULAR HGB CONC 29.6 g/dL (31-35); MEAN CORPUSCULAR VOLUME 96.5 fL (81-99); MONOCYTES # (AUTO) 0.5 (0.2-0.8); MONOCYTES % 6.5 % (4.4-11.3); NEUTROPHILS # (AUTO) 5.3 (2.1-6.9); NEUTROPHILS % 71.9 % (38.7-80.0); PLATELET COUNT 307 x10e3/uL (140-360); RED BLOOD COUNT 3.15 x10e6/uL (3.6-5.1); RED CELL DISTRIBUTION WIDTH 14.7 % (11.7-14.4)
[2018-11-19 12:52] LABS: ANION GAP 15.3 mmol/L (8-16); CALCIUM 9.1 mg/dL (8.4-10.2); CREATININE, SERUM 1.52 mg/dL (0.57-1.11); POTASSIUM 3.3 mmol/L (3.5-5.1)
[2018-11-19 13:11] LABS: % IRON SATURATION 17 % (15-50); IRON 22 ug/dL (50-170); TOTAL IRON BINDING CAPACITY 127 ug/dL (261-478); TRANSFERRIN 91 mg/dL (180-382)
--- NOTE | 2018-11-19 13:26 | Progress Note ---
DATE: 11/19/2018 CHIEF COMPLAINT: Bilateral lower extremity redness and edema. SUBJECTIVE: Status post IVC filter yesterday, bilateral lower extremity redness still prominent. She reports improving pain of the left lower extremity with ambulation. PHYSICAL EXAMINATION: VITAL SIGNS: Temperature 97.6, pulse is 100, respirations 20, blood pressure 103/47, and pulse ox is 95% on 2 liters of nasal cannula. GENERAL: No acute distress. HEENT: Normocephalic and atraumatic. LUNGS: Clear to auscultation. CARDIOVASCULAR: Normal rate and rhythm. ABDOMEN: Soft and nontender. NEUROLOGIC: Alert, awake, and oriented X3. MUSCULOSKELETAL: Active ROM with bilateral lower extremity edema and redness, Charcot feet noted. SKIN: Has healing rash on the right lower extremity. Left lower extremity noted with redness and hematoma noted on camara. PROCEDURE: IVC filter placed on 11/18/2018. IMPRESSION AND PLAN: 1. Sepsis on admission due to left lower extremity cellulitis. We will continue with IV antibiotics and supportive treatment. 2. Hypertension, now hypotensive. 3. Acute deep vein thrombosis. Cardiology was consulted for vascular workup. IVC filter placed on 11/18/2018. 4. Anemia. Hemoglobin is 10. Fecal occult was positive. We will continue to monitor closely. 5. Diabetes type 2. We will continue with sliding scale insulin coverage. 6. High cholesterol. Lifestyle modification as she is allergic to statin. 7. History of peripheral arterial disease. Defer to Dr. Ndiaye. 8. Morbid obesity with BMI of 36. Lifestyle modifications discussed. We will repeat chest x-ray today. Dictated by GEORGE Chew Javi Blake MD MY/MODL /[id number]
--- NOTE | 2018-11-19 13:29 | Diagnostic Imaging Report ---
EXAMINATION: CHEST SINGLE (PORTABLE) INDICATION: Shortness of breath COMPARISON: Chest radiograph of 11/17/2018 FINDINGS: LINES/TUBES:EKG leads overlie the chest. LUNGS:The lungs are moderately inflated. Again seen are opacities at the left lung base silhouetting the left heart border and partially silhouetting the left hemidiaphragm. Subsegmental atelectasis at the right lung base. PLEURA:No pleural effusion or pneumothorax. MEDIASTINUM:The cardiomediastinal silhouette appears unchanged in size and shape. BONES/SOFT TISSUES:No acute osseous injury. ABDOMEN:No free air under the diaphragm. IMPRESSION: Airspace opacification at the left lung base is concerning for aspiration and/or pneumonia in the proper clinical setting. Signed by: Stacia Castelan MD on 11/19/2018 1:25 PM
--- NOTE | 2018-11-19 14:22 | Progress Note ---
DATE: 11/19/2018 Cardiology Progress Note SUBJECTIVE: Denies any chest pain or shortness of breath. Left leg discomfort improving. OBJECTIVE: VITAL SIGNS: Temperature 97.6, heart rate 100, respiratory rate 20, blood pressure 103/47, and O2 saturation 95% on 2 L/minute nasal cannula. GENERAL: No acute distress. Alert. NECK: No JVD. CHEST: Clear to auscultation. CARDIOVASCULAR: Regular rate and rhythm. Normal S1 and S2. No S3. No S4. ABDOMEN: Soft and nontender. Bowel sounds positive. EXTREMITIES: 2+ edema. Erythema to left leg. CARDIOVASCULAR MEDICATIONS: Reviewed. Eliquis discontinued. Lisinopril 5 mg daily. STUDIES: Reviewed. White blood cells 7.4, hemoglobin 9, and platelets 307. Rest of labs pending. ASSESSMENT: 1. Anemia with fecal occult blood test positive in the setting of significant drop in H and H, pending workup. 2. Right common femoral vein, [id number] deep venous thrombosis and recanalized thrombosis to bilateral popliteal veins, now status post IVC filter retrievable implant on 11/19/2018. 3. Hypertension. 4. Diabetes. 5. Dyslipidemia. 6. Left leg cellulitis. RECOMMENDATIONS: 1. Continue antibiotics. 2. I have discussed with the patient and family members importance of close followup and consideration for retrieval of IVC filter once able to tolerate anticoagulation again. For now, suggest GI evaluation and continue to hold anticoagulation given FOBT positive and H and H drop. Srinivas Khalil MD AFTy/MODBruce /[id number]
[2018-11-19] MEDS: CLINDAMYCIN 300MG 50 ML IV SCH ×2 (17:44→23:55)
--- NOTE | 2018-11-19 19:36 | NUR ---
Received bedside report from day nurse. Patient resting in bed, no s/s of distress or c/o pain at this time. All safety measures in place. Will continue to monitor.
[2018-11-20] VITALS (8 sets, daily range): BP systolic 81–142; BP diastolic 43–68
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
[2018-11-20] MEDS: CLINDAMYCIN 300MG 50 ML IV SCH ×4 (06:14→23:56)
[2018-11-20] MEDS: PIPER-TAZ 3.375 GM 50 ML IV SCH ×3 (06:47→22:59)
[2018-11-20] MEDS: INSULIN REGULAR, HUMAN 100 UNIT/1 ML 3ML VIAL SQ SCH ×4 (07:30→21:00)
[2018-11-20] MEDS ORDERED: ONDANSETRON HCL 4 MG ORAL DISINTEGRATING TAB PO PRN (08:45)
[2018-11-20] MEDS: DOCUSATE SODIUM 100 MG CAP PO SCH ×2 (09:00→17:46)
[2018-11-20] MEDS: LISINOPRIL 2.5 MG TAB PO SCH (09:00)
--- NOTE | 2018-11-20 12:22 | Progress Note ---
DATE: 11/20/2018 Cardiology Progress Note SUBJECTIVE: Denies any chest pain or shortness of breath, status post EGD. OBJECTIVE: VITAL SIGNS: Temperature 96.8, heart rate 104, blood pressure 94/48, respiratory rate 20, and O2 saturation 95%. GENERAL: In no acute distress, alert. NECK: No JVD. CHEST: Clear to auscultation. CARDIOVASCULAR: Regular rate and rhythm. Normal S1, S2. ABDOMEN: Soft. EXTREMITIES: Trace edema to both lower extremities. CARDIOVASCULAR MEDICATIONS: Reviewed. Lisinopril 5 mg daily. STUDIES: Reviewed. Sodium 136, potassium 3.3, chloride 104, bicarbonate 20, BUN 12, creatinine 1.5, glucose 102. White blood cells 7.4, hemoglobin 9, platelets 307. INR is 0.9. ASSESSMENT: 1. A 68-year-old woman with right [id number] deep venous thrombosis to common femoral vein and recanalized chronic thrombosis to both popliteal veins, status post IVC filter in the setting of anemia, positive occult blood test. EGD today with duodenal ulcer reportedly noted. 2. Diabetes. 3. Hypertension. 4. Left leg cellulitis. RECOMMENDATIONS: Continue current cardiovascular medications. Once okay with GI, consider allowing one week off anticoagulation and stable H and H and no gross bleeding, resuming anticoagulation challenge. If tolerated, advice on retrieving IVC filter. The patient encouraged to follow up closely as outpatient for this and advised of the importance to proceed with this if tolerating anticoagulation to avoid late IVC filter placement related complications. MD DAVID Graves/PRECIOUS /[id number]
--- NOTE | 2018-11-20 13:43 | Progress Note ---
DATE: 11/20/2018 CONSULTANTS: 1. Srinivas Khalil MD with Cardiology. 2. Jony Gomez MD with GI. CHIEF COMPLAINT: Bilateral lower extremity redness and edema. SUBJECTIVE: The patient was seen, status post EGD this morning. Awaiting to hear results. Continues to have GI bleed, may consider a colonoscopy. She denies any chest pain, shortness of breath, fever, chills, nausea, or vomiting. She reports left lower extremity pain with ambulation. PHYSICAL EXAMINATION: VITAL SIGNS: Temperature is 97.3, pulse is 105, respirations 20, blood pressure is 98/50, and pulse ox is 95% on 2 liters of oxygen. GENERAL: No acute distress. Obese. HEENT: Normocephalic and atraumatic. LUNGS: Clear to auscultation. CARDIOVASCULAR: Normal rate and rhythm. ABDOMEN: Soft and nontender. Obese. NEUROLOGIC: Alert, awake, and oriented x3. MUSCULOSKELETAL: Active ROM. Pain with ambulation due to Charcot feet. SKIN: Redness in the bilateral lower extremity with left leg more than the right. PROCEDURE: Esophagogastroduodenoscopy this morning. IMPRESSION: 1. Sepsis present on admission due to left lower extremity cellulitis. We will continue with IV antibiotics, vancomycin changed to clindamycin. 2. Hypertension, now hypotensive. We will continue to monitor closely. 3. Anemia with positive fecal occult. Hemoglobin is 9.0. GI was consulted and underwent esophagogastroduodenoscopy today, pending results. 4. Acute deep venous thrombosis. Inferior vena cava filter was placed on 11/18/2018 due to anemia, unable to start anticoagulation. We will await on GI recommendations. 5. Diabetes type 2. We will continue with sliding scale insulin coverage. 6. High cholesterol. Lifestyle modifications. 7. History of peripheral arterial disease. Defer to Dr. Ndiaye. 8. Morbid obesity with a BMI of 36. Lifestyle modifications. PLAN: We will consult PT to evaluate and treat. Repeat labs in a.m. Dictated by GEORGE Chew Yiching Uche Blake MD MY/MODL /[id number]
[2018-11-20] MEDS: PANTOPRAZOLE SOD 40 MG TABEC PO SCH (17:45)
--- NOTE | 2018-11-20 18:35 | NUR ---
patient resting in bed, not in any distress, family at bed side
[2018-11-20] MEDS ORDERED: LIDOCAINE HCL 2% LOCAL INJ 5 ML SDV VIAL INJ ONE (18:37)
[2018-11-20] MEDS ORDERED: PROPOFOL IV EMULSION 10 MG/ML 20 ML VIAL ONE (18:37)
[2018-11-20] MEDS ORDERED: FENTANYL CITRATE/PF 100MCG/2 ML INJ ONE (18:53)
[2018-11-20] MEDS ORDERED: MIDAZOLAM HCL 2 MG/2 ML VIAL ONE (18:53)
[2018-11-21] VITALS (8 sets, daily range): BP systolic 85–125; BP diastolic 48–72
[2018-11-21] MEDS: ACETAMINOPHEN 325 MG TAB PO PRN
[2018-11-21 05:55] LABS: BASOPHILS % 0.4 % (0.0-1.0); EOSINOPHILS # (AUTO) 0.2 (0.0-0.4); HEMATOCRIT 26.1 % (34.2-44.1); HEMOGLOBIN 8.2 g/dL (12.0-16.0); LYMPHOCYTES # (AUTO) 1.7 (1.0-3.2); LYMPHOCYTES % 21.1 % (18.0-39.1); MEAN CORPUSCULAR HEMOGLOBIN 28.9 pg (28-32); MEAN CORPUSCULAR HGB CONC 31.4 g/dL (31-35); MEAN CORPUSCULAR VOLUME 91.9 fL (81-99); MONOCYTES # (AUTO) 0.5 (0.2-0.8); MONOCYTES % 6.7 % (4.4-11.3); NEUTROPHILS # (AUTO) 5.4 (2.1-6.9); NEUTROPHILS % 66.6 % (38.7-80.0); PLATELET COUNT 329 x10e3/uL (140-360); RED BLOOD COUNT 2.84 x10e6/uL (3.6-5.1)
[2018-11-21] MEDS: CLINDAMYCIN 300MG 50 ML IV SCH (06:00)
[2018-11-21] MEDS ORDERED: SODIUM CHLORIDE 0.9% 250ML 250 ML ONE (06:15)
[2018-11-21 06:21] LABS: ANION GAP 15.9 mmol/L (8-16); CALCIUM 8.5 mg/dL (8.4-10.2); CREATININE, SERUM 2.75 mg/dL (0.57-1.11)
[2018-11-21] MEDS: PIPER-TAZ 3.375 GM 50 ML IV SCH ×3 (06:24→21:00)
[2018-11-21 06:35] LABS: POTASSIUM 2.9 mmol/L (3.5-5.1)
[2018-11-21 06:59] LABS: BAND NEUTROPHILS % (MANUAL) 3 %; EOSINOPHILS % (MANUAL) 3 % (0-7); LYMPHOCYTES % (MANUAL) 13 % (19-48); MONOCYTES % (MANUAL) 6 % (3.4-9.0); NEUTROPHILS % (MANUAL) 75 % (40-74); PLATELET ESTIMATE ADEQUATE; PLATELET MORPHOLOGY COMMENT NORMAL; RBC MORPHOLOGY COMMENT NORMAL
[2018-11-21] MEDS: INSULIN REGULAR, HUMAN 100 UNIT/1 ML 3ML VIAL SQ SCH ×4 (07:30→21:01)
--- NOTE | 2018-11-21 07:40 | NUR ---
PATIENT IN STABLE CONDITION WITH NO S/S OF RESPIRATORY DISTRESS. NO PAIN VOICED. TELEMETRY APPLIED. UPON ASSESSMENT, NURSE RADIOLOGIST PRESENT IN ROOM WELL, SKIN TEARS NOTED TO LEFT FOREARM WITH MODERATE AMOUNT OF BLEEDING AND LEFT HAND WITH MINIMUM AMOUNT OF BLEEDING. SKIN TEAR ALSO NOTED TO RIGHT FOREARM WITH NO DRAINAGE NOTED- NEW DRESSING (XEROFORM, GAUZE, AND PAPER TAPE) APPLIED TO ALL SKIN TEAR LOCATIONS. WHEELCHAIR AVAILABLE FOR PATIENT NEAR BEDSIDE. BED ALARM APPLIED. CALL LIGHT IS WITHIN REACH, PATIENT INSTRUCTED TO CALL FOR ASSISTANCE NEEDED.
[2018-11-21] MEDS: DOCUSATE SODIUM 100 MG CAP PO SCH ×2 (08:22→17:25)
[2018-11-21] MEDS: PANTOPRAZOLE SOD 40 MG TABEC PO SCH ×2 (08:22→17:25)
[2018-11-21] MEDS: LISINOPRIL 2.5 MG TAB PO SCH (08:31)
--- NOTE | 2018-11-21 09:27 | NUR ---
PATIENT'S DAUGHTER ON THE UNIT- PATIENT'S DAUGHTER REQUESTED PAPER TAPE TO BE REMOVED. RN REMOVED PAPER TAPE TO LEFT HAND TO PLACE [place] BUT PATIENT'S DAUGHTER STOPPED RN STATING PATIENT IS ALLERGIC TO [place]. PATIENT'S DAUGHTER THAN REQUESTED FOR PAPER TAPE TO BE REAPPLIED TO LEFT HAND AND TO REMAIN ON THE OTHER SKIN TEAR LOCATIONS. DAUGHTER REQUESTED CITIZEN OF [place] SPEAKING NURSE- REPORT GIVEN TO NEW NURSE ON PATIENT'S CARE AND PENDING ORDERS.
--- NOTE | 2018-11-21 09:30 | NUR ---
RECEIVED REPORT FROM PREVIOUS NURSE FOR CONTINUITY OF CARE.
[2018-11-21] MEDS ORDERED: SODIUM CHLORIDE 0.9% 250ML 250 ML IV ONE (09:45)
[2018-11-21] MEDS ORDERED: POTASSIUM CHLORIDE 20 MEQ TAB CR PO ONE ×2 (10:30→12:00)
--- NOTE | 2018-11-21 12:24 | NUR ---
JADEN VIERA IN TO SEE PATIENT. NOTIFIED OF BEING UNABLE TO GET IV LINE. PER RESEARCH PROGRAM INTERN, OBTAIN MIDLINE. RADIOLOGY NOTIFIED NURSE THAT PATIENT NEEDS NEPHROLOGY CLEARANCE AND ADMITTING CLEARANCE TO BE ABLE TO GIVE LINE. NOTIFIED JADEN VIERA, NEW CONSULT RECEIVED FOR DR. RIOJAS. PENDING ON CONSULTATION WITH NEPHROLOGY.
--- NOTE | 2018-11-21 12:36 | Progress Note ---
DATE: 11/21/2018 Cardiology Progress Note SUBJECTIVE: Denies any chest pain or shortness of breath. OBJECTIVE: VITAL SIGNS: Temperature 97.1, heart rate 80, respiratory rate 18, blood pressure 125/72, and O2 saturation 96%. BMI 35. General: No acute distress, alert. NECK: No JVD. CHEST: Clear to auscultation. CARDIOVASCULAR: Regular rate and rhythm. Normal S1, S2. No S3 or S4. Systolic ejection murmur 1/6. ABDOMEN: Soft, nontender. Bowel sounds positive. EXTREMITIES: Trace edema to both lower extremities. SKIN: Erythema to both lower extremities. Ecchymosis to left anterior camara. CARDIOVASCULAR MEDICATIONS: Reviewed. Lisinopril 5 mg daily. On Zosyn and clindamycin antibiotics. STUDIES: Reviewed. Sodium 139, potassium 2.9, chloride 107, bicarbonate 19, BUN 18, creatinine 2.7, and glucose 108. White blood cells 8.1, hemoglobin 8.2, and platelets 329. INR 0.9, PT 13.6, and PTT 31.7. AST 14, ALT 12, total bilirubin 0.7, and alkaline phosphatase 123. ASSESSMENT: 1. A 68-year-old woman, presents with acute on chronic right common femoral vein DVT and recanalized thrombosis of both popliteal veins, status post retrievable IVC filter, Emm[place] filter placement. In the setting of anemia and positive occult blood test, status post upper endoscopy by GI with duodenal ulcer reported. 2. Diabetes mellitus. 3. Hypertension. 4. Left leg cellulitis. 5. Chronic diastolic heart failure. Recommend replete electrolytes. 6. Renal function seems to be worsening with creatinine of 2.7 today. Encourage p.o. hydration and discontinue diuretics. 7. Monitor renal function. If okay with other treating physicians, consider trial of IV fluids and hold lisinopril for now. 8. If no recurrent drop in H and H or gross bleeding noted within seven days, consider resuming Eliquis as an outpatient within the following 2-3 weeks. Followup to consider IVC retrieval. MD DAVID Graves/PRECIOUS /[id number]
[2018-11-21] MEDS: CLINDAMYCIN HCL 150 MG CAP PO SCH ×3 (12:39→23:39)
[2018-11-21] MEDS ORDERED: POTASSIUM CHLORIDE 20 MEQ TAB CR PO STA (14:22)
--- NOTE | 2018-11-21 14:52 | Progress Note ---
DATE: 11/21/2018 CONSULTANTS: 1. Srinivas Khalil MD with Cardiology. 2. Jony Gomez MD with GI. 3. Ezra Knight MD with Nephrology. CHIEF COMPLAINT: Bilateral lower extremity redness and edema. SUBJECTIVE: The patient seems to be a little lethargic today, denies any chest pain, shortness of breath, nausea, or vomiting. Per family, the patient is receiving to drink fluids because she does want to go to the bathroom. Unable to have a peripheral line in, IR has been consulted for midline or PICC line, but due to her LORAINE, may need Nephrology clearance. Daughter is at the bedside. Discussed plan of care. PHYSICAL EXAMINATION: VITAL SIGNS: Temperature is 97.8, pulse is 105, respirations 18, blood pressure is 96/53, and pulse ox is 90%. GENERAL: No acute distress. HEENT: Normocephalic and atraumatic. LUNGS: Clear to auscultation. CARDIOVASCULAR: Normal rate and rhythm. ABDOMEN: Soft and nontender. Obese. NEUROLOGIC: Alert, awake, and oriented x3. Mildly lethargic. MUSCULOSKELETAL: Complaining of right upper extremity pain, which is chronic and also pain with ambulation due to Charcot feet and cellulitis. SKIN: Redness of bilateral lower extremities. Edema is improving. LABORATORY DATA: WBC 8.1, hemoglobin is 8.2, hematocrit is 26.1, and platelet is 329. Sodium is 139, potassium is 2.9, creatinine is 2.75, BUN is 18. Estimated GFR is 17. Blood sugar is controlled. IMPRESSION AND PLAN: 1. Sepsis present on admission due to lower extremity cellulitis. We will continue with clindamycin and Zosyn. 2. LORAINE. Creatinine is 2.[address] IV line and start hydration with IV fluids. Nephrology has been consulted, although this might be due to poor p.o. intake. 3. Hypertension, now hypotensive. We will monitor closely. 4. Anemia with positive fecal occult. Hemoglobin is 8.6. EGD was done and she is started on Protonix. 5. Acute deep venous thrombosis. IVC filter was placed on 11/18/2018. Anticoagulation to start with GI recommendations. 6. Hypokalemia, potassium 2.9. We will replace and check Mag level. 7. Diabetes type 2. We will continue sliding scale insulin. 8. High cholesterol, less modification. 9. History of peripheral vascular diseases. Refer to Dr. Ndiaye. 10. Debility likely due to pain of the lower extremities. Physical Therapy has been consulted. Recommend [facility]. 11. Morbid obesity with BMI of 36. Lifestyle modification. Plan is to place an IV access and hydrate, we will have Nephrology evaluate the patient. Dictated by GEORGE Chew Javi Blake MD MY/MODL /[id number]
--- NOTE | 2018-11-21 16:17 | NUR ---
Nutrition Screen Note RD Recommendation for Physician: - Recommend adding 1800 ADA to current diet 2/2 hx of DM and on insulin Plan of Care: RD following, monitoring for tolerance and adequacy Nutrition reason for involvement: LOS Primary Diagnose(s): abscess or cellulitis of heel, chronic R femoral DVT PMH: CHF, DM2, HTN, PVD Ht: 62 in Wt: 194 lb(questionable wt) BMI: 35.5 kg/m2 IBW: [address] Assessment: (11/21) Pt seen today for LOS, discussed during am rounds. Pt reports fair appetite, states "I'm not a big eater", noted 25-75% meal intake. pt denies wt loss, reports UBW of 135#- questionable current wt in chart of 194# noted. Pt denies GI distress or difficulties chewing or swallowing. No questions or concerns at this time. Chart reviewed, per MD noted pt s/p EGD with duodenal ulcer noted. Labs and meds reviewed. Will monitor and continue to follow. Current Diet: Cardiac Diet Tolerance: Tolerating PO Malnutrition Evaluation (11/21/18) The patient does not meet criteria for a specified degree of malnutrition at this time. Will re-evaluate at follow-up as appropriate. Diet Education Needs Assessment: Diet education not indicated. Nutrition Care Level: Low Signed: Lauren Jimenez RD, LD, [facility]
[2018-11-21] MEDS: SODIUM CHLORIDE 0.9% 1000ML 1,000 ML IV SCH (17:27)
[2018-11-21] MEDS: APIXABAN 5 MG TABLET PO SCH (18:27)
--- NOTE | 2018-11-21 18:30 | NUR ---
PATIENT STATED SHE ONLY URINATED ONE TIME TODAY. BLADDER SCANNED PATIENT AND NOTED 268ML. CALLED JADEN NOBLE. SHE STATED THAT IS NOT A LOT OF URINE BUT NURSE CAN STRAIGHT CATH PATIENT FOR URINE SAMPLE. ORDER PLACED IN/.
--- NOTE | 2018-11-21 18:44 | Consultation ---
DATE OF CONSULTATION: 11/21/2018 Nephrology consultation REASON FOR CONSULTATION: Acute kidney injury. HISTORY OF PRESENT ILLNESS: The patient is a 68-year-old woman, admitted on 11/15/2018, for bilateral lower leg cellulitis. She has since been treated with IV vancomycin and IV Zosyn with recent vancomycin trough level of 22.6. She came in with normal serum creatinine which has risen over the last 3 to 4 days. She does have past medical history of diabetes mellitus and hypertension and peripheral vascular disease. The patient speaks only Cambodian and unable to offer history. My information is obtained from review of the chart. It seems like she has also received ketorolac or Toradol injection and was maintained on lisinopril for the hypertension. Metformin that she was taking has been held. There has been no IV iodinated contrast exposure at least during this hospital. She has been running somewhat low blood pressure during this hospitalization. PAST MEDICAL HISTORY: As noted above. Also, has dyslipidemia and a 40-year history of chronic DVTs. PAST SURGICAL HISTORY: C-sections, right eye cataract, and hernia repair. FAMILY HISTORY: Father had heart disease. SOCIAL HISTORY: Denies any tobacco, alcohol, or other drug use. ALLERGIES: STATIN. REVIEW OF SYSTEMS: Unable to obtain from the patient. PHYSICAL EXAMINATION: GENERAL: The patient is lying on her side in bed, in no acute distress. VITAL SIGNS: Blood pressure is 96/53, pulse is 105 per minute. She is afebrile. SKIN: Appears dry. No other lesions. HEENT: Normocephalic, atraumatic head. Oral mucosa appears dry. NECK: Without jugular venous distention. CHEST: Auscultation reveals clear lung green bilaterally. I do not hear any wheezing or crepitations. CARDIOVASCULAR: Normal S1, S2 without any rub or gallop. ABDOMEN: Soft, markedly obese, and pendulous, but appears nontender. EXTREMITIES: Both lower legs bare the kline of inflammation, i.e. redness with very mild non-pitting type chronic edema. NEUROLOGIC: The patient is alert and appears oriented. Appears to move all 4 extremities. IMAGING: Chest x-ray reportedly showing clear lung green and enlarged cardiac shadow. LABORATORY DATA: Most recent labs from today show hemoglobin 8.2, white count normal, and normal platelets. Sodium 139, potassium 2.9, chloride 107, bicarbonate 19, BUN 18, and creatinine 2.7. Total calcium 8.5. Serum creatinine was 0.89 on 5th of this month. A urinalysis on the 3rd of this month showed concentrated urine with an 11-20 cells, 0.5 red cells, only trace protein, IMPRESSION: 1. Acute kidney injury, likely secondary to combination of vancomycin toxicity, IV Toradol, and perhaps contribution from hypotension. 2. Hypokalemia. I believe likely from poor oral intake. I believe the patient is also on Lasix which has been held. 3. Mild metabolic acidosis secondary to above. 4. History of hypertension, presently hypotensive. Lisinopril and metformin have appropriately been withheld. RECOMMENDATION: 1. Keep the patient hydrated with IV fluids, if oral intake is low. 2. Replace potassium by mouth. 3. Avoid all NSAIDs including Toradol, IV iodinated contrast, and known nephrotoxic antibiotics. 4. Keep vancomycin trough level less than 20. 5. Repeat urinalysis and urine protein to creatinine ratio today. 6. Trend renal function daily, looking for improvement. Since this is all acute. 7. Adjust dose of all relevant medication for GFR less than 20 for now. Thank you very much for the opportunity to participate in her care. I will follow her renal function and offer recommendation as needed. Richard Cook MD [facility]/MODL /[id number]
--- NOTE | 2018-11-21 18:50 | NUR ---
STRAIGHT CATHED PATIENT FOR URINE SAMPLE. 450ML NOTED.
--- NOTE | 2018-11-21 19:14 | Progress Note ---
DATE: 11/21/2018 GI Progress Report SUBJECTIVE: The patient is feeling low today, do not feel like eating any food. Denies any abdominal pain. REVIEW OF SYSTEMS: GENERAL: Fatigue and weak. CVS: No chest pain or palpitation. RESPIRATORY: No cough or expectoration. MEDICATIONS: 1. Insulin regular. 2. Intravenous clindamycin. 3. Pantoprazole 40 mg p.o. twice daily. 4. Docusate 100 mg twice daily. 5. Acetaminophen 650 mg every 6 hours as needed. 6. Piperacillin/tazobactam 3.375 g every 8 hours. 7. Apixaban 5 mg twice daily. 8. Zofran 4 mg every 4 hours as needed. 9. Morphine 2 mg every 4 hours as needed. PHYSICAL EXAMINATION: VITAL SIGNS: Temperature 98.8, pulse 100, respirations 18, blood pressure 99/50, and oxygen saturation 95% on room air. GENERAL: Obese body habitus, not in any acute distress. HEENT: Oral mucosa is moist. Anicteric sclerae. ABDOMEN: Soft, protuberant belly, nontender. No palpable mass or hernia. Positive bowel sounds. LABORATORY DATA: Hemoglobin is down to 8.2 from 9.0 on 11/19/2018, WBC 8.10, hematocrit 26.1, and platelet count 329. Sodium 139, potassium 2.9, chloride 107, bicarb 19, BUN 18, and creatinine 2.75, up from 1.52. IMPRESSION: 1. Anemia with heme-positive stool. Upper endoscopy performed yesterday showed mild gastritis, duodenitis with a small cratered duodenal bulb ulcer. Gastric biopsies obtained. Results pending. 2. Recurrent deep vein thrombosis, status post inferior vena cava filter. 3. Left lower extremity cellulitis. PLAN: Although, there is no significant drop in hemoglobin since 11/19/2018. The patient also has not had any bowel movement. I recommended to resume anticoagulation. Eliquis has been restarted. Recommend to continue PPI. Follow up gastric biopsy result. Add Carafate suspension. Regarding constipation, this is also due to use of morphine. I recommend to discontinue Dulcolax instead start senna with docusate two pills every night and MiraLAX in the morning. Jony Gomez MD [facility]/PRECIOUS /[id number]
--- NOTE | 2018-11-21 19:26 | NUR ---
REPORT GIVEN TO ONCOMING NURSE. WALKING ROUNDS DONE. PATIENT IS RESTING IN BED. NO ACUTE DISTRESS NOTED. NO S/S OF PAIN NOTED. CALL LIGHT WITHIN REACH. BED IN THE LOWEST POSITION.
[2018-11-21 19:32] LABS: BILIRUBIN,URINE SMALL (NEGATIVE); CLARITY,URINE SL CLOUDY (CLEAR); COLOR,URINE YELLOW (YELLOW); KETONES,URINE NEGATIVE (NEGATIVE); LEUKOCYTE ESTERASE ,URINE NEGATIVE (NEGATIVE); NITRITE,URINE NEGATIVE (NEGATIVE); PROTEIN,URINE DIPSTICK TRACE (NEGATIVE); URINE UROBILINOGEN 0.2 mg/dL (0.2 - 1)
[2018-11-21 19:36] LABS: AMORPHOUS SEDIMENT,URINE MANY (FEW); BACTERIA,URINE FEW /HPF
--- NOTE | 2018-11-21 19:45 | NUR ---
PT IS RESTING IN BED WITH FAMILY AT BEDSIDE. RESPIRATION IS EVEN AND UNLABORED, NO DISTRESS NOTED. BED IN THE LOWEST POSITION, LOCKED, BED ALARM ON, AND CALL LIGHT WITHIN REACH. WILL CONTINUE TO MONITOR.
[2018-11-21 20:05] LABS: CREATININE,URINE RANDOM 117.31 mg/dL (47-110); TOTAL PROTEIN, URINE 69.8 mg/dL (1-14)
[2018-11-22] VITALS (8 sets, daily range): BP systolic 85–103; BP diastolic 44–58
[2018-11-22] MEDS: CLINDAMYCIN HCL 150 MG CAP PO SCH (05:07)
[2018-11-22] MEDS: PIPER-TAZ 3.375 GM 50 ML IV SCH ×3 (05:07→22:06)
--- NOTE | 2018-11-22 07:00 | NUR ---
Received report from off going nurse. Patient is resting in bed. No acute distress noted. Call light within reach. Bed in the lowest position.
[2018-11-22 07:10] LABS: BASOPHILS # (AUTO) 0.1 (0.0-0.1); BASOPHILS % 0.5 % (0.0-1.0); EOSINOPHILS # (AUTO) 0.3 (0.0-0.4); HEMATOCRIT 28.8 % (34.2-44.1); HEMOGLOBIN 8.5 g/dL (12.0-16.0); LYMPHOCYTES # (AUTO) 2.4 (1.0-3.2); LYMPHOCYTES % 23.6 % (18.0-39.1); MEAN CORPUSCULAR HEMOGLOBIN 27.9 pg (28-32); MEAN CORPUSCULAR HGB CONC 29.5 g/dL (31-35); MEAN CORPUSCULAR VOLUME 94.4 fL (81-99); MONOCYTES # (AUTO) 0.6 (0.2-0.8); MONOCYTES % 5.9 % (4.4-11.3); NEUTROPHILS # (AUTO) 6.3 (2.1-6.9); NEUTROPHILS % 62.8 % (38.7-80.0); PLATELET COUNT 330 x10e3/uL (140-360); RED BLOOD COUNT 3.05 x10e6/uL (3.6-5.1); RED CELL DISTRIBUTION WIDTH 15.3 % (11.7-14.4)
[2018-11-22 07:22] LABS: CREATININE, SERUM 2.98 mg/dL (0.57-1.11)
[2018-11-22] MEDS: INSULIN REGULAR, HUMAN 100 UNIT/1 ML 3ML VIAL SQ SCH ×3 (07:30→16:30)
[2018-11-22] MEDS: PANTOPRAZOLE SOD 40 MG TABEC PO SCH ×2 (09:00→16:41)
[2018-11-22] MEDS: SODIUM CHLORIDE 0.9% 1000ML 1,000 ML IV SCH (09:00)
[2018-11-22] MEDS: APIXABAN 5 MG TABLET PO SCH ×2 (09:00→16:41)
[2018-11-22] MEDS: DOCUSATE SODIUM 100 MG CAP PO SCH ×2 (09:00→16:41)
[2018-11-22] MEDS: CLINDAMYCIN 300MG 50 ML IV SCH ×2 (12:35→17:30)
--- NOTE | 2018-11-22 12:52 | Diagnostic Imaging Report ---
Chest, 1 view, 11/22/2018. History: Shortness of breath. Comparison: 11/19/2018. Findings: The cardiomediastinal silhouette and pulmonary vasculature are within normal limits for a portable exam. Left lower lobe patchy opacity is unchanged. Linear opacities remain in the right mid and lower lung. There are no acute osseous or soft tissue abnormalities. Impression: Linear right and patchy left lower lobe opacities without significant change. Signed by: Perez Junior on 11/22/2018 12:49 PM
--- NOTE | 2018-11-22 15:31 | Progress Note ---
DATE: 11/22/2018 Cardiology Progress Note SUBJECTIVE: Denies chest pain or shortness of breath. OBJECTIVE: VITAL SIGNS: Temperature 97 degrees, heart rate 118, respiratory rate 18, blood pressure 100/58, O2 saturation 97% on 2 L/minute nasal cannula. GENERAL: No acute distress, alert. NECK: No JVD. CHEST: Clear to auscultation. CARDIOVASCULAR: Regular rate and rhythm. Normal S1, S2. ABDOMEN: Soft, nontender. Bowel sounds positive. EXTREMITIES: 1+ edema. SKIN: With erythema to both lower extremities and ecchymosis and left anterior camara. NEURO: Normal speech. MUSCULOSKELETAL: Seems deconditioned. CARDIOVASCULAR MEDICATIONS: Reviewed. Eliquis 5 mg every 12 hours, on Zosyn and clindamycin antibiotics. STUDIES: Reviewed. White blood cells 10, hemoglobin 8.5, stable from yesterday at 8.2, platelets 330. Sodium 138, potassium 4, chloride 108, bicarbonate 17, BUN 19, creatinine 2.98, glucose 88, calcium 8. ASSESSMENT: 1. A 68-year-old woman with acute kidney injury. 2. Diabetes mellitus. 3. Hypertension. 4. Right common femoral vein acute on chronic deep vein thrombosis and chronic recanalized thrombosis of both popliteal veins, status post retrievable IVC filter implant, pending confirmation of tolerance of anticoagulation, recently resumed. 5. Diabetes mellitus, hypertension. 6. Left leg cellulitis. 7. Chronic diastolic heart failure. 8. Morbid obesity. RECOMMENDATIONS: 1. Monitor renal function. If any procedures planned, can hold Eliquis for now and can bridge with Lovenox as needed. 2. Continue rest of cardiovascular medications except diuretic, which the patient is on holiday for given change in renal function. The patient was advised to follow up in the office after two weeks post discharge for further discussions regarding filter retrieval should the patient continue to tolerate anticoagulation. Importance of this in order to avoid late filter related complications has been discussed. Srinivas Khalil MD [facility]/MODL /[id number]
[2018-11-22] MEDS: ONDANSETRON HCL INJ 2MG/ML 2ML 2 MG/ML VIAL IV PRN (16:50)
--- NOTE | 2018-11-22 17:21 | Progress Note ---
DATE: 11/22/2018 CONSULTING PHYSICIANS: 1. Srinivas Khalil MD with Cardiology. 2. Jony Gomez MD with GI. 3. Ezra Knight MD with Nephrology. CHIEF COMPLAINT: Generalized weakness and bilateral lower extremity redness. SUBJECTIVE: The patient is still with generalized weakness, poor appetite, reported tachycardia when getting up with physical therapy this morning. The chest x-ray is unchanged with opacities in the left lower lobe. Daughter at the bedside. Discussed the plan and advised her to encourage p.o. intake. PHYSICAL EXAMINATION: VITAL SIGNS: Temperature 97.0, pulse is 118, respirations 18, blood pressure is 100/58, and pulse ox is 97% on 2 L of oxygen. GENERAL: Generalized weakness and fatigue. HEENT: Normocephalic, atraumatic. LUNGS: Clear to auscultation. Decreased breath sounds in the lower lobes. CARDIOVASCULAR: Regular rate and rhythm. Tachycardic. ABDOMEN: Soft and nontender. Active bowel sounds. Obese. NEUROLOGY: Alert, awake, and oriented x3. Generalized weakness. MUSCULOSKELETAL: Bilateral lower extremity redness and pain, improving. Has Charcot feet on left lower extremity. SKIN: Redness and healing scars on bilateral lower extremities. LABORATORY DATA: WBC 10, hemoglobin 8.5, hematocrit 28.8, and platelet 330. Chemistry; sodium 138, potassium 4.0, chloride 108, CO2 of 17, BUN 19, creatinine 2.98. Estimated GFR 16, calcium 8. UA with trace protein, amorphous sediment noted, and urine creatinine 117.31. ASSESSMENT AND PLAN: 1. Sepsis, present on admission due to lower extremity cellulitis. We will continue on clindamycin and Zosyn. 2. Acute kidney injury, creatinine 2.98. IV fluids started for light hydration. Nephrology has been consulted. UA noted. She is also encouraged to increase her p.o. intake. Glucerna added to supplement. 3. Hypertension, now hypotensive. We will continue to monitor. 4. Sinus tachycardia, likely due to dehydration. We will continue with IV fluid hydration and monitor on Tele. 5. Anemia. Fecal occult is positive. EGD done by GI. She is on Protonix. Hemoglobin stable at 8.5. 6. Acute deep venous thrombosis, status post IVC filter placement on 11/18/2018. Eliquis has been started 5 mg b.i.d. 7. Diabetes type 2. We will continue with sliding scale insulin coverage as needed. 8. High cholesterol. Lifestyle modifications. 9. History of peripheral vascular diseases. Defer to Dr. Ndiaye. 10. Debility, due to lower extremity pain. Physical Therapy has been consulted and they recommend halfway facility. 11. Morbid obesity with BMI of 36. Again, lifestyle modification. PLAN: Plan is to continue with IV fluid hydration and repeat BMP in a.m. Further recommendation per Nephrology. Dictated by GEORGE Chew Javi Blake MD MY/MODL /[id number]
--- NOTE | 2018-11-22 19:12 | NUR ---
PT IS RESTING IN BED. RESPIRATION IS EVEN AND UNLABORED, NO DISTRESS NOTED. BED IN THE LOWEST POSITION, LOCKED, BED ALARM ON, AND CALL LIGHT WITHIN REACH. WILL CONTINUE TO MONITOR.
--- NOTE | 2018-11-22 19:27 | NUR ---
Report given to oncoming nurse. Walking rounds done. Patient is resting in bed. No acute distress noted. Patient turned to right side. Call light within reach. Bed in the lowest position.
--- NOTE | 2018-11-22 22:19 | Diagnostic Imaging Report ---
EXAM: ABDOMEN-1VIEW (KUB) DATE: 11/22/2018 7:26 PM INDICATION: Abdominal distention. COMPARISON: None FINDINGS: LINES/TUBES: None BOWEL PATTERN: There is normal volume of gas within the colon and rectum. No dilated small bowel loops. There is a curvilinear density in the right lower quadrant is concerning Rigler's sign (pneumoperitoneum). SOFT TISSUES: IVC filter projected just lateral to the L2-L3 level. Oval density in the pelvis may represent an enlarged uterus, a full bladder or adnexal mass. LUNG BASES: Not included BONES: No acute findings. Curvilinear calcific densities projected on the proximal right thigh may represent soft tissue calcification. IMPRESSION: Findings concerning for pneumoperitoneum. Recommend further evaluation with CT abdomen pelvis. The patient is currently prepped for a CT scan of abdomen and pelvis. Findings discussed with Poonam from Med/Surg with information relayed to NP. Sushila lorenzo p.katina on 11/22/18. Signed by: Dr. Emeli Joshua M.D. on 11/22/2018 10:36 PM
--- NOTE | 2018-11-22 23:23 | Progress Note ---
DATE: 11/22/2018 GI Progress Report SUBJECTIVE: The patient reports no abdominal pain. Tolerating oral diet. Regular BM. Stools are brown. REVIEW OF SYSTEMS: GENERAL: Admits to some fatigue and weakness. CVS: No chest pain or palpitation. RESPIRATORY: No cough or expectoration. MEDICATIONS: Reviewed as per APR. PHYSICAL EXAMINATION: VITAL SIGNS: Temperature 100.1, pulse 114, respirations 18, blood pressure 102/53 to 85/44, and oxygen saturation 93% on 3 L of nasal cannula. GENERAL: Not in any acute distress. Oral mucosa is moist. ABDOMEN: Protuberant, obese abdomen. Soft, nondistended, and nontender. No mass or hernia. Positive bowel sounds. LABORATORY DATA: Hemoglobin is stable from 8.2 to 8.5. BUN 19 and creatinine has gone up to 2.98 from 2.75. ASSESSMENT: 1. Anemia with heme-positive stool. Upper endoscopy performed on this admission showed a gastritis duodenitis with small cratered duodenal ulcer. Gastric biopsies were obtained, this showed mild reactive gastropathy. No HP infection. 2. Recurrent deep vein thrombosis, status post inferior vena cava filter. She is also on anticoagulant apixaban. 3. Left lower extremity cellulitis, on antibiotic. PLAN: No need to monitor hemoglobin unless the patient has any gross GI bleeding. The patient's hemoglobin is stable, despite starting anticoagulation. Continue PPI for gastritis and duodenal ulcer. Jony Gomez MD [facility]/PRECIOUS /[id number]
[2018-11-23] VITALS (9 sets, daily range): BP systolic 87–116; BP diastolic 37–70
[2018-11-23] MEDS ORDERED: LACTATED RINGER'S 500 ML IV ONE
[2018-11-23] MEDS: CLINDAMYCIN 300MG 50 ML IV SCH ×2 (00:50→05:53)
[2018-11-23] MEDS: LACTATED RINGER'S 1,000 ML IV SCH ×2 (00:50→08:14)
--- NOTE | 2018-11-23 00:57 | Diagnostic Imaging Report ---
EXAM: CT Abdomen and Pelvis WITHOUT contrast INDICATION: Fever. Abdominal pain. Rule out bowel perforation. COMPARISON: None. TECHNIQUE: Abdomen and pelvis were scanned utilizing a multidetector helical scanner from the lung base to the pubic symphysis without administration of IV contrast. Absence of intravenous contrast decreases sensitivity for detection of focal lesions and vascular pathology. Coronal and sagittal reformations were obtained. Routine protocol was performed. IV CONTRAST: None. ORAL CONTRAST: Water RADIATION DOSE: Total DLP: 805.35 mGy*cm Estimated effective dose: (DLP x 0.015 x size factor) mSv COMPLICATIONS: None FINDINGS: A portion of the left hemiabdomen was not included due to patient's body habitus and positioning within the scanner. LINES and TUBES: None. LOWER THORAX: Irregular density in the lung bases, left greater than right may represent atelectasis versus pleural parenchymal scarring. HEPATOBILIARY: The liver is diffuse hypodense compared to the spleen, consistent with diffuse hepatic diffuse hepatic steatosis. No focal hepatic lesions. No biliary ductal dilation. GALLBLADDER: There are stones in the gallbladder. No wall thickening. SPLEEN: No splenomegaly. PANCREAS: No focal masses or ductal dilatation. ADRENALS: No adrenal nodules. KIDNEYS/URETERS: No hydronephrosis. No cystic or solid mass lesions. No stones. Bilateral perinephric stranding. GI TRACT: No abnormal distention, wall thickening, or evidence of bowel obstruction. There are diverticula within the colon without evidence of diverticulitis. Appendix is tentatively identified, without evidence of appendicitis. PELVIC ORGANS/BLADDER: The urinary bladder is markedly distended by high attenuation material, which may reflect extruded contrast, however, no contrast examination has been performed in the Department of radiology within this institution. Hemorrhagic fluid could also have this appearance. LYMPH NODES: No lymphadenopathy. VESSELS: There is moderate atherosclerotic disease in the aorta and major arterial branches. A filter is present within the infrarenal IVC. PERITONEUM / RETROPERITONEUM: No free air or fluid. BONES: Lower thoracic DISH. SOFT TISSUES: Soft tissues: Sedation in the lower anterior abdominal wall. IMPRESSION: 1. No evidence of bowel perforation or pneumoperitoneum. 2. Marked distention of the urinary bladder by high attenuation fluid, possibly excreted contrast versus less likely hemorrhage mixed with urine. 3. Cholelithiasis without evidence of cholecystitis or biliary dilatation. Signed by: Dr. Emeli Joshua M.D. on 11/23/2018 12:53 AM
--- NOTE | 2018-11-23 01:36 | NUR ---
SPOKE TO DR SNOW AND READ CT/PELVIC RESULT. NO NEW ORDERS AT THIS TIME. WILL CONTINUE TO MONITOR.
--- NOTE | 2018-11-23 01:50 | NUR ---
PER DR EDY NARVAEZ FOR RETENTION. WILL CONTINUE TO MONITOR.
--- NOTE | 2018-11-23 02:08 | NUR ---
16FR NARVAEZ INSERTED AND IS DRAINING. WILL CONTINUE TO MONITOR
[2018-11-23 06:50] LABS: BASOPHILS # (AUTO) 0.1 (0.0-0.1); BASOPHILS % 0.6 % (0.0-1.0); EOSINOPHILS # (AUTO) 0.3 (0.0-0.4); EOSINOPHILS % 2.7 % (0.0-6.0); HEMATOCRIT 29.7 % (34.2-44.1); HEMOGLOBIN 9.2 g/dL (12.0-16.0); LYMPHOCYTES # (AUTO) 2.3 (1.0-3.2); LYMPHOCYTES % 21.2 % (18.0-39.1); MEAN CORPUSCULAR HEMOGLOBIN 28.4 pg (28-32); MEAN CORPUSCULAR VOLUME 91.7 fL (81-99); MONOCYTES # (AUTO) 0.6 (0.2-0.8); MONOCYTES % 5.5 % (4.4-11.3); NEUTROPHILS % 63.8 % (38.7-80.0); PLATELET COUNT 361 x10e3/uL (140-360); RED BLOOD COUNT 3.24 x10e6/uL (3.6-5.1); RED CELL DISTRIBUTION WIDTH 15.8 % (11.7-14.4)
--- NOTE | 2018-11-23 06:51 | NUR ---
received report from warehouse shift supervisor RN, pt sleeping comfortably in bed, respirations even and nonlabored, no distress noted, call light within reach, will continue to monitor.
[2018-11-23 06:55] LABS: INR 1.53
[2018-11-23 06:56] LABS: PARTIAL THROMBOPLASTIN TIME 50.1 seconds (23.8-35.5)
[2018-11-23 07:04] LABS: ALBUMIN 1.3 g/dL (3.5-5.0); ANION GAP 17.6 mmol/L (8-16); BILIRUBIN,DIRECT 0.6 mg/dL (0.0-0.5); CALCIUM 7.8 mg/dL (8.4-10.2); CREATININE, SERUM 3.45 mg/dL (0.57-1.11); MAGNESIUM 1.3 MG/DL (1.3-2.1); PHOSPHORUS 3.3 MG/DL (2.3-4.7); POTASSIUM 3.6 mmol/L (3.5-5.1)
[2018-11-23 07:30] LABS: THYROID STIMULATING HORMONE 1.836 uIU/mL (0.350-4.940)
[2018-11-23] MEDS: INSULIN LISPRO 100 UNIT/1 ML 3ML VIAL SQ SCH ×4 (07:30→21:00)
[2018-11-23] MEDS: DOCUSATE SODIUM 100 MG CAP PO SCH ×2 (08:20→16:05)
[2018-11-23] MEDS: PANTOPRAZOLE SOD 40 MG TABEC PO SCH ×2 (08:20→16:04)
[2018-11-23] MEDS ORDERED: PIPER-TAZ 3.375 GM 50 ML IV SCH (09:00)
[2018-11-23] MEDS ORDERED: PANTOPRAZOLE 40 MG 10ML VIAL IV SCH (09:00)
[2018-11-23] MEDS ORDERED: APIXABAN 5 MG TABLET PO SCH (09:00)
--- NOTE | 2018-11-23 09:22 | NUR ---
CALL TO JADEN NOBLE W DR. SNOW FOR PLAN FOR PT. NOTED PT RECOMMENDED SNF.
--- NOTE | 2018-11-23 10:30 | NUR ---
dr conte here request sánchez stay in due to pt having urinary retention
--- NOTE | 2018-11-23 11:19 | NUR ---
spoke with Dr. Blake and informed him of pt's manual blood pressure of 90/50 with elevated heart rate of 115 bpm and lethargy; he states continue to monitor patient and make sure Dr. Fletcher is aware.
[2018-11-23] MEDS: ONDANSETRON HCL INJ 2MG/ML 2ML 2 MG/ML VIAL IV PRN ×2 (13:10→19:06)
[2018-11-23] MEDS: DOXYCYCLINE HYCLATE TABLET 100 MG TAB PO SCH ×2 (13:13→21:30)
--- NOTE | 2018-11-23 15:18 | Diagnostic Imaging Report ---
EXAMINATION: CHEST SINGLE (PORTABLE) INDICATION: Pneumonia COMPARISON: Chest radiograph of 11/22/2018 FINDINGS: LINES/TUBES:EKG leads overlie the chest. LUNGS:The lungs are moderately inflated. Linear opacities at both lung bases, likely subsegmental atelectasis. PLEURA:No pleural effusion or pneumothorax. MEDIASTINUM:The cardiomediastinal silhouette appears normal in size and shape. BONES/SOFT TISSUES:No acute osseous injury. ABDOMEN:No free air under the diaphragm. IMPRESSION: Bibasilar subsegmental atelectasis. No focal pneumonia or pulmonary edema. Signed by: Stacia Castelan MD on 11/23/2018 3:14 PM
[2018-11-23] MEDS: APIXABAN 5 MG TABLET PO SCH (16:05)
[2018-11-23 16:53] LABS: ANION GAP 16.6 mmol/L (8-16); CALCIUM 7.3 mg/dL (8.4-10.2); CREATININE, SERUM 3.57 mg/dL (0.57-1.11); POTASSIUM 3.6 mmol/L (3.5-5.1)
--- NOTE | 2018-11-23 17:27 | Consultation ---
DATE OF CONSULTATION: 11/23/2018 ID Consult REASON FOR CONSULTATION: Low-grade fever despite antibiotics. Thank you, Dr. Blake, for asking me to see this patient. HISTORY OF PRESENT ILLNESS: The patient is a 68-year-old woman, who was referred for low-grade fever, despite antibiotics. She was admitted through the emergency department with left lower extremity cellulitis. She presented to the emergency department on 11/15/2018, with the left lower extremity pain and swelling. The patient has had low-grade fever since yesterday (range 100 to 100.2 degrees Fahrenheit). The patient has left midline, indwelling Mckee catheter and multiple skin tears. She still has residual left lower extremity redness and pain. She denies cough, shortness of breath, diarrhea, and abdominal pain. PAST MEDICAL HISTORY: Diabetes mellitus type 2 with peripheral neuropathy, hypertension, and peripheral artery disease. PAST SURGICAL HISTORY: Cataract surgery, section, and hernia repair. ALLERGIES: ROSUVASTATIN. MEDICATIONS: The current antibiotic is Zosyn 3.375 g IV piggyback q.12 hours. She received clindamycin earlier. IMMUNIZATION: Influenza pneumococcal vaccination status cannot be verified at this time. FAMILY HISTORY: Noncontributory. SOCIAL HISTORY: No alcohol, tobacco, or recreational drug use. REVIEW OF SYSTEMS: As per history of present illness. PHYSICAL EXAMINATION: GENERAL: No acute distress and does not appear toxic. VITAL SIGNS: T-max 100.1, pulse rate 101, respiratory rate 18, blood pressure 95/40, and weight 194 pounds. HEENT: Normocephalic. There is no icterus or injection of conjunctiva. There is no ear or nasal discharge. Moist oral mucosa. No pharyngeal erythema or exudate. NECK: Supple. No meningismus. LUNGS: Good air entry bilaterally. HEART: Normal S1 and S2. Mild tachycardia. ABDOMEN: Soft and nontender. EXTREMITIES: There is edema of the upper and lower extremities with multiple skin tears of the upper extremities. The dorsalis pedis and posterior tibial pulses with palpation in the feet. There is residual erythema, warmth, and tenderness of the left lower extremity. SKIN: As per extremities. There are multiple skin tears. There are multiple skin tears and ecchymosis of the extremities, especially the upper extremities. SOLDERER DIPPER: Awake, alert, and oriented to person, place, and time. There is decreased sensation to monofilament test of the feet. Nonfocal. LABORATORY AND DIAGNOSTICS: WBC 10,900, hemoglobin 9.2, platelets 361,000, neutrophils 63.8, lymphocytes 21.2, monocytes 5.5, eosinophils 2.7, and basophils 0.6. BUN 22, creatinine 3.45, and blood glucose 110. 11/17/2018, vancomycin trough 22.6. 11/15/2018, blood culture, no growth. IMPRESSION: 1. Low-grade fever. 2. Left lower extremity cellulitis. 3. Acute kidney injury on chronic kidney disease. 4. Diabetes mellitus type 2 with peripheral neuropathy, controlled. 5. Peripheral arterial disease. PLAN: 1. Discontinue left forearm midline and Mckee catheter. 2. Change antibiotic to doxycycline 100 mg by mouth twice a day. 3. Mobilize the patient as tolerated. 4. Nephrology and GI consults noted. MD KEVEN Puga/PRECIOUS /[id number]
--- NOTE | 2018-11-23 17:31 | Progress Note ---
DATE: 11/23/2018 CONSULTING PHYSICIANS: 1. Dr. Ndiaye with Cariology. 2. Dr. Gomez with GI. 3. Dr. Knight with Nephrology. 4. Dr. Fletcher with Infectious Disease. CHIEF COMPLAINT: Generalized weakness and bilateral lower extremity redness and edema. SUBJECTIVE: The patient is a little more awake today, continue to encourage her to increase her p.o. intake. No shortness of breath, chest or abdominal pain. Had an episode of nausea and vomiting x1 this morning. PHYSICAL EXAMINATION: VITAL SIGNS: Temperature 99.4, pulse is 120s, blood pressure is 110/70, pulse ox 95%. GENERAL: Generalized weakness and fatigue. HEENT: Normocephalic, atraumatic. LUNGS: Decreased breath sounds. CARDIOVASCULAR: Sinus tachycardia with regular rate and rhythm. ABDOMEN: Soft and nontender. Active bowel sounds. Obese. NEUROLOGY: Alert, awake, oriented x3. Generalized weakness. : Mckee in place for urinary retention. MUSCULOSKELETAL: Bilateral lower extremity redness and pain. SKIN: Redness and rash healing on the bilateral lower extremities. LABORATORY DATA: WBC 10.9, hemoglobin 9.2, hematocrit 29.7, platelet 361. Sodium 139, potassium 3.6, CO2 16, anion gap 17.6, creatinine is 3.45. Estimated GFR is 13. Albumin is 1.3. TSH is 1.83. IMAGING: KUB showed some findings that is concerning for pneumoperitoneum. Recommended for CT of abdomen and pelvis. CT showed no evidence of bowel perforation or pneumoperitoneum, but showed marked distention of urinary bladder and cholelithiasis without cholecystitis or biliary dilation. Mckee catheter was placed and draining clear yellow urine. Chest x-ray shows bibasilar subsegmental atelectasis. No focal pneumonia or pulmonary edema, which is similar to yesterday. ASSESSMENT: 1. Sepsis, present on admission due to lower extremity cellulitis. Infectious Disease has been consulted and switched to doxycycline p.o. 2. Acute kidney injury with creatinine increasing to 3.45. We will continue with IV fluid hydration. Mckee catheter has been placed for urinary retention, Nephrology is on the case and appreciate input. 3. Hypertension, now hypotensive. We will hold BP meds. 4. Sinus tachycardia, likely due to dehydration. We will continue with IV fluid. TSH was within normal limits. 5. Anemia, focal occult is positive. EGD was done by GI on Protonix. Hemoglobin is stable at 9.2 today. 6. Acute deep venous thrombosis, status post IVC filter on 11/18/2018. Continue Eliquis p.o. b.i.d. 7. Diabetes type 2. Continue sliding scale insulin as needed. 8. High cholesterol. 9. History of peripheral vascular diseases. Defer to Dr. Ndiaye. 10. Debility due to lower extremity pain and continue physical therapy. We will need SNF placement upon discharge. 11. Morbid obesity with a BMI of 36. Lifestyle modifications. 12. Deep vein thrombosis prophylaxis, is on Eliquis. PLAN: We will continue current treatment, we will continue with IV fluid and we will do CAT scan of her lower extremities to rule out osteomyelitis. Dictated by GEORGE Chew Javi Blake MD MY/MODL /[id number]
[2018-11-23] MEDS: ACETAMINOPHEN 325 MG TAB PO PRN (18:53)
--- NOTE | 2018-11-23 18:54 | NUR ---
pt vomiting after Tylenol; given IV Morphine and Zofran.
--- NOTE | 2018-11-23 19:25 | NUR ---
Patient received lying in bed. AAO x 3. Family at bedside. Patient had no complaints of pain. Respirations even and non-labored on 3L NC. Mckee catheter draining pale clear yellow urine. Fall precautions implemented. Patient instructed to call for assistance when needed. Call light within reach.
[2018-11-23] MEDS ORDERED: ALBUMIN 25% 25GM 100ML 0.25 GM/ML BTL IV ONE (20:00)
--- NOTE | 2018-11-23 20:25 | NUR ---
Patient noted to be hypotensive BP(70/44), HR(111), Temp (100.4) . Patient slightly lethargic. Dr. Blake notified. Order received for bolus of 500 ml LR. Will continue to monitor patient.
[2018-11-23] MEDS ORDERED: ALBUMIN 25% 25GM 100ML 100 ML IV ONE (20:30)
[2018-11-23] MEDS ORDERED: LACTATED RINGER'S 500 ML IV SCH (20:45)
--- NOTE | 2018-11-23 21:38 | Progress Note ---
DATE: 11/23/2018 Cardiology Progress Note SUBJECTIVE: Denies any chest pain or shortness of breath. Feels lightheaded today. OBJECTIVE: VITAL SIGNS: Temperature 99.7, heart rate 117, blood pressure 92/51, respiratory rate 17, O2 saturation 96%. GENERAL: No acute distress. Alert. NECK: No JVD. CHEST: Clear to auscultation. CARDIOVASCULAR: Regular rate and rhythm. Normal S1, S2. ABDOMEN: Soft, nontender. Bowel sounds positive. EXTREMITIES: 1+ edema. SKIN: Erythema to both lower extremities with ecchymosis to left anterior camara. CARDIOVASCULAR MEDICATIONS: Reviewed, antihypertensive medicines currently and off anticoagulation currently. STUDIES: Reviewed. Sodium 139, potassium 3.6, chloride 109, bicarbonate 16, BUN 22, creatinine 3.45, and glucose 110. White blood cells 10.9, hemoglobin 9.2, and platelets 361. INR 1.5. AST 20, ALT 20, alkaline phosphatase 188, total bilirubin 0.7, PT 19, PTT 50. ASSESSMENT: A 68-year-old woman with metabolic acidosis, acute renal failure, anemia, who presents with leg cellulitis, underlying peripheral artery disease, deep venous thrombosis, undergoing anticoagulation treatment, currently on hold. Status post recent IVC filter placement, fecal occult blood test positive anemia, status post GI evaluation with nonbleeding ulcer. PLAN/RECOMMENDATIONS: 1. Hydration and volume management per Nephrology. The patient's metabolic acidosis noted, anticoagulation on hold, to allow further options regarding renal issues and possible catheterization and procedures as needed. 2. Hold antihypertensives currently, given low normal blood pressure reads. 3. Overall guarded prognosis. Srinivas Khalil MD AFV/MODL /[id number]
--- NOTE | 2018-11-23 22:40 | NUR ---
Patient off floor for CT of Lower Extremity without contrast.
--- NOTE | 2018-11-23 22:45 | NUR ---
Dr. Blake notified of patient's BP (83/50), HR (114) and temperature (98.8F) after bolus administration of 500 ml LR, and urine output of 50 cc since 1929. Order received for another bolus of 500 ml Lactated Ringer.
[2018-11-23] MEDS ORDERED: LACTATED RINGER'S 1,000 ML IV SCH (23:00)
[2018-11-24] VITALS (8 sets, daily range): BP systolic 85–148; BP diastolic 48–73
--- NOTE | 2018-11-24 00:22 | Diagnostic Imaging Report ---
CT scan of the left lower extremity without contrast TECHNIQUE: Standard departmental protocols were used. Limited axial scans were obtained of the left lower extremity from the level of the knee to the foot without administration of contrast medium. Sagittal and coronal reconstructions were obtained. A small portion of the contralateral foot was also imaged. . HISTORY: Pain and swelling. Cellulitis. Concern for abscess. COMPARISON: None. FINDINGS: Bones: No acute fracture or dislocation. Generalized osteopenia. There is cortical erosion of the talus as seen on axial image 145. Soft tissues: Severe muscle atrophy. Diffuse subcutaneous edema with trace fluid, however, no abscess formation. There are phlegmonous inflammatory changes about ankle, particularly along the medial aspect of the tibiotalar joint and talus as seen on axial image 145. Fluid attenuation. Small ankle effusion. Vascular calcifications. Phleboliths. IMPRESSION: Cellulitis. Inflammatory phlegmonous changes about the ankle and midfoot with suspicion for erosion of the talus with concern for osteomyelitis. Recommend further evaluation with MRI of ankle and foot without and with contrast. Signed by: Dr. Emeli Joshua M.D. on 11/24/2018 12:19 AM
[2018-11-24] MEDS: LACTATED RINGER'S 1,000 ML IV SCH ×2 (03:00→10:38)
--- NOTE | 2018-11-24 06:45 | NUR ---
Patient resting comfortably. Walking rounds done. Shift report given to oncoming nurse.
--- NOTE | 2018-11-24 06:49 | NUR ---
received report from plant health manager RN, pt resting in bed, respirations even, nonlabored, call light within reach, no acute distress noted, will continue to monitor.
[2018-11-24] MEDS: INSULIN LISPRO 100 UNIT/1 ML 3ML VIAL SQ SCH ×4 (07:30→20:51)
[2018-11-24] MEDS: DOXYCYCLINE HYCLATE TABLET 100 MG TAB PO SCH (08:18)
[2018-11-24] MEDS: APIXABAN 5 MG TABLET PO SCH (08:18)
[2018-11-24] MEDS: PANTOPRAZOLE SOD 40 MG TABEC PO SCH (08:18)
[2018-11-24] MEDS: DOCUSATE SODIUM 100 MG CAP PO SCH ×2 (08:18→17:35)
[2018-11-24] MEDS ORDERED: DOXYCYCLINE 100MG/NS 100ML 100 ML IV SCH (09:45)
[2018-11-24 09:56] LABS: CALCIUM 7.1 mg/dL (8.4-10.2); CREATININE, SERUM 3.72 mg/dL (0.57-1.11)
[2018-11-24] MEDS ORDERED: SODIUM BICARBONATE 8.4% 50 ML VIAL IV ONE (14:00)
[2018-11-24] MEDS ORDERED: CALCIUM GLUCONATE 10% INJ 9.3 MEQ in SODIUM CHLORIDE 0.9% 100 ML 100 ML IV ONE (14:00)
[2018-11-24] MEDS ORDERED: SODIUM BICARBONATE 8.4% INJ 50 ML SYR IV ONE (14:00)
[2018-11-24] MEDS ORDERED: FUROSEMIDE INJ 10 MG/ML 4 ML VIAL IV ONE (14:00)
--- NOTE | 2018-11-24 15:06 | Progress Note ---
DATE: 11/24/2018 Cardiology Progress Note SUBJECTIVE: Denies any chest pain or shortness of breath. OBJECTIVE: VITAL SIGNS: Temperature 97.6, heart rate 96, respiratory rate 20, blood pressure 93/49, and O2 saturation 96% on nasal cannula 3 L/minute. GENERAL: No acute distress. Alert. NECK: No JVD. CHEST: Clear to auscultation. CARDIOVASCULAR: Regular rate and rhythm. Normal S1 and S2. Systolic ejection murmur. ABDOMEN: Soft and nontender. Bowel sounds positive. EXTREMITIES: 2+ edema and erythema to both lower extremities. CARDIOVASCULAR MEDICATIONS: Reviewed. LR 125 mL/hour IV. Anticoagulation on hold. LABORATORY DATA: White blood cells 10.9, hemoglobin 9.2, and platelets 361. INR 1.5. Sodium 138, potassium 4, chloride 109, bicarbonate 14 trending down, BUN 24, creatinine 3.7 trending up, glucose 106, and calcium 7.1. TELEMETRY: Sinus tachycardia and sinus rhythm. ASSESSMENT: 1. Worsening metabolic acidosis and volume overload as well as worsening creatinine. Nephrology is on board. Continue to hold anticoagulation as needed. If any catheters are being planned, particularly for temporary dialysis should be necessary. 2. Continue to hold antihypertensives given low normal blood pressure rates. 3. Continue hydration trial, but monitor closely for development of pulmonary edema. 4. Regarding the femoral deep venous thrombosis, the patient is status post retrievable IVC filter. 5. FOBT positive anemia and duodenal ulcer, being followed by GI, on PPI. 6. Peripheral artery disease. Defer to outpatient management once condition improved. 7. LVEF hyperdynamic >70%. MD DAVID Graves/PRECIOUS /[id number] DEMARIO
[2018-11-24] MEDS: SODIUM BICARBONATE 8.4% SYRING 75 ML in SODIUM CHLORIDE 0.45% 1,000 ML IV SCH (15:19)
--- NOTE | 2018-11-24 16:16 | Progress Note ---
DATE: 11/24/2018 Renal Progress Note SUBJECTIVE: Followed for acute kidney injury. Creatinine continues to rise, it is at 3.72 today. The patient did have episodes of hypotension yesterday, probably contributing to the rise in creatinine. The patient continues to have sustained acute kidney injury, likely related to acute tubular necrosis, although AIN cannot be ruled out. The patient is getting Protonix 40 mg twice a day and proton pump inhibitors have been associated with acute interstitial nephritis. The patient is nonoliguric. Currently, no urgent indication for dialysis. The patient's bicarb is continuing to trend downward, it is at 14 today. OBJECTIVE: VITAL SIGNS: Have been noted. Last blood pressure is 148/70, pulse is 123, and temperature 99.3. LUNGS: Rales at the bases bilaterally. CARDIOVASCULAR: S1, S2. No rub. ABDOMEN: Soft, nontender. EXTREMITIES: Evidence of 2+ edema. No clubbing. No cyanosis. LABORATORY DATA: Sodium 138, potassium 4, chloride 109, bicarb 14, BUN is 24, creatinine 3.7, calcium 7.1. IMPRESSION AND PLAN: 1. Acute kidney injury. Continues to have sustained acute kidney injury, likely from acute tubular necrosis, although cannot rule out acute interstitial nephritis. For now, we will discontinue the Protonix since that can be contributing to the patient developing acute interstitial nephritis. The patient may or may not have also developed toxicity from vancomycin related acute tubular necrosis versus for AIN or acute interstitial nephritis from vancomycin. For now, continue with gentle IV fluid hydration. Would not be too aggressive with IV fluids since the patient may get fluid overloaded. I would change the fluids, however, to half-normal saline plus 75 mEq of sodium bicarb to run at 75 mL/h, especially since the patient is developing worsening metabolic acidosis. If the patient does have signs or symptoms of fluid overload, then perhaps by Monday, she may require acute hemodialysis. We will continue to monitor closely. We will also give one dose of Lasix 40 mg IV x1 to prevent fluid overload. 2. Hypertension/hypotension, labile blood pressures. When the patient is repositioned, blood pressures are checked. Blood pressures are usually better. Continue to monitor off blood pressure lowering medications for now. 3. Worsening metabolic acidosis, likely from acute kidney injury state, may be a component of fluid overload also. We will give 1 amp of sodium bicarb IV push now, and we will also place on IV fluids of half NS plus 75 mEq of sodium bicarbonate at 75 mL/hour. I would discontinue lactated Ringer's since that may be also worsening the metabolic acidosis. 4. Slight fluid overload. We will give one dose of Lasix 40 mg IV x1 and monitor for increased urine output and also for I's and O's. 5. Hypocalcemia. Give 2 g calcium gluconate. Recheck labs in the morning. 6. Currently no urgent indication for dialysis. Continue monitor closely and make further recommendations. Thank you once again. Ezra Knight MD TH/MODL /[id number]
--- NOTE | 2018-11-24 16:31 | Progress Note ---
DATE: 11/24/2018 CONSULTING PHYSICIANS: 1. Srinivas Khalil M.D. with Cardiology. 2. Jony Gomez M.D. with GI. 3. Ezra Knight M.D. with Nephrology. 4. Pal Fletcher M.D. with Infectious Disease. CHIEF COMPLAINT: Generalized weakness and bilateral lower extremity edema and redness. SUBJECTIVE: Seen and examined, family at bedside, was up with physical therapy this morning to walk and sat in a chair x30 minutes. She is eating a little bit better per staff. No fever, chills, or shortness of breath. PHYSICAL EXAMINATION: VITAL SIGNS: Temperature is 99.3, pulse is 123, respirations 20, blood pressure is 148/70, and pulse is 96, status post ambulation, prior to that pulse rate was 96. LABORATORY DATA: BMP done this morning, sodium 138, potassium 4.0, carbon dioxide is 14, BUN is 24, creatinine is 3.72, estimated GFR is 12, and calcium is 7.1. IMAGING DATA: Chest x-ray, bibasilar subsegmental atelectasis, no focal pneumonia or pulmonary edema. CT of the lower extremities show cellulitis, inflammatory phlegmonous changes about the ankle and midfoot with suspicion for erosion of the talus with concern for osteomyelitis and recommend MRI of the ankle on the foot. IMPRESSION AND PLAN: 1. Sepsis present on admission due to cellulitis. Continue doxycycline IV b.i.d. per Infectious Disease doctor. 2. Acute kidney failure. Creatinine is worsening at 3.72 today. IV fluid changed to bicarb per Nephrology, Lasix and calcium gluconate ordered per Nephrology. 3. Hypertension, now hypotensive. We will hold all blood pressure medications. 4. Sinus tachycardia, especially when ambulating. TSH is within normal limits. May be due to dehydration. 5. Anemia, now improving. Hemoglobin 9.2. We will continue to monitor closely. 6. Acute deep vein thrombosis, status post inferior vena cava filter on 11/18/2018. Eliquis has been restarted. 7. Diabetes type 2. Continue sliding scale insulin coverage. The patient is with poor p.o. intake. 8. High cholesterol. She is allergic to statins. 9. History of peripheral vascular diseases. Defer to Dr. Ndiaye. 10. Hypoalbuminemia, was given albumin x1. 11. Debility. Continue Physical Therapy evaluation and treatment. 12. Morbid obesity with BMI of 36. Lifestyle modifications. 13. Deep vein thrombosis prophylaxis, Eliquis. Plan is MRI of the left lower extremity to rule out osteomyelitis. Dictated by GEORGE Chew Nedraching Uche Blake MD MY/MODL /[id number]
--- NOTE | 2018-11-24 19:20 | NUR ---
Patient received lying in bed. AAO x 3. Daughter at bedside. Patient assisted to a more comfortable position. No acute distress noted. Call light within reach.
[2018-11-24] MEDS: DOXYCYCLINE 100MG/NS 100ML 100 ML IV SCH (21:09)
[2018-11-25] VITALS (8 sets, daily range): BP systolic 80–106; BP diastolic 44–54
--- NOTE | 2018-11-25 04:05 | NUR ---
Midline dressing changed.
[2018-11-25] MEDS: SODIUM BICARBONATE 8.4% SYRING 75 ML in SODIUM CHLORIDE 0.45% 1,000 ML IV SCH ×2 (04:20→11:44)
[2018-11-25 06:34] LABS: BASOPHILS # (AUTO) 0.1 (0.0-0.1); BASOPHILS % 0.6 % (0.0-1.0); EOSINOPHILS # (AUTO) 0.3 (0.0-0.4); EOSINOPHILS % 2.5 % (0.0-6.0); HEMATOCRIT 27.8 % (34.2-44.1); HEMOGLOBIN 8.8 g/dL (12.0-16.0); LYMPHOCYTES # (AUTO) 2.4 (1.0-3.2); LYMPHOCYTES % 19.1 % (18.0-39.1); MEAN CORPUSCULAR HEMOGLOBIN 28.6 pg (28-32); MEAN CORPUSCULAR HGB CONC 31.7 g/dL (31-35); MEAN CORPUSCULAR VOLUME 90.3 fL (81-99); MONOCYTES # (AUTO) 0.5 (0.2-0.8); NEUTROPHILS % 64.1 % (38.7-80.0); PLATELET COUNT 333 x10e3/uL (140-360); RED BLOOD COUNT 3.08 x10e6/uL (3.6-5.1); RED CELL DISTRIBUTION WIDTH 16.6 % (11.7-14.4)
--- NOTE | 2018-11-25 06:40 | NUR ---
received shift change report from assembler 1st shift RN; pt resting comfortably in bed, no distress noted, call light within reach, bed locked and in lowest position.
[2018-11-25 07:01] LABS: ANION GAP 17.6 mmol/L (8-16); CALCIUM 7.2 mg/dL (8.4-10.2); CREATININE, SERUM 4.18 mg/dL (0.57-1.11); PHOSPHORUS 3.5 MG/DL (2.3-4.7); POTASSIUM 3.6 mmol/L (3.5-5.1)
[2018-11-25] MEDS: INSULIN LISPRO 100 UNIT/1 ML 3ML VIAL SQ SCH ×4 (07:30→20:57)
[2018-11-25] MEDS: DOCUSATE SODIUM 100 MG CAP PO SCH ×2 (07:56→18:03)
[2018-11-25] MEDS: DOXYCYCLINE 100MG/NS 100ML 100 ML IV SCH ×2 (07:58→21:23)
[2018-11-25 09:16] LABS: BAND NEUTROPHILS % (MANUAL) 2 %; EOSINOPHILS % (MANUAL) 2 % (0-7); LYMPHOCYTES % (MANUAL) 17 % (19-48); MONOCYTES % (MANUAL) 8 % (3.4-9.0); MYELOCYTES % (MANUAL) 2 % (0-0); NEUTROPHILS % (MANUAL) 69 % (40-74)
[2018-11-25 09:17] LABS: HYPOCHROMASIA SLIGHT; PLATELET ESTIMATE ADEQUATE; POLYCHROMASIA FEW; SMUDGE CELLS FEW
[2018-11-25 09:18] LABS: PLATELET MORPHOLOGY COMMENT NORMAL
[2018-11-25] MEDS ORDERED: POTASSIUM CHLORIDE 20MEQ/100ML 100 ML IV ONE (13:00)
[2018-11-25] MEDS ORDERED: SODIUM BICARBONATE 8.4% 50 ML VIAL IV ONE (13:30)
[2018-11-25] MEDS ORDERED: FUROSEMIDE INJ 10 MG/ML 4 ML VIAL IV ONE (13:30)
--- NOTE | 2018-11-25 13:49 | Progress Note ---
DATE: 11/25/2018 Cardiology Progress Note SUBJECTIVE: Denies any chest pain or shortness of breath. Lower extremity discomfort is improving. Eating some today with improved appetite. OBJECTIVE: VITAL SIGNS: Temperature 98.7, heart rate 125, respiratory rate 28, blood pressure 80/45 to 106/54, and O2 saturation 100% on nasal cannula. GENERAL: In no acute distress. Alert. NECK: No JVD. CHEST: Clear to auscultation. CARDIOVASCULAR: Regular rate and rhythm. Normal S1 and S2. Systolic ejection murmur. No S3. No S4. ABDOMEN: Soft and nontender. Morbidly obese. EXTREMITIES: With 2+ edema and erythema to both lower extremities. CARDIOVASCULAR MEDICATIONS: Reviewed, on sodium bicarbonate drip, being monitored closely for volume overload, furosemide and Eliquis currently on hold. STUDIES: White blood cells 12.5, hemoglobin 8.8, yesterday it was 9.2, and platelets 333. Sodium 138, potassium 3.6, chloride 108, bicarbonate 16, BUN 26, creatinine 4.1, continues to trend up, glucose 100, calcium 7.2, and phosphorus 3.5. BNP 16.9. Blood cultures negative x5 days. TELEMETRY: Sinus tachycardia. ASSESSMENT: 1. Worsening acute kidney injury. 2. Metabolic acidosis. 3. Volume overload. 4. Hypotensive episodes, labile blood pressure. 5. Right common femoral vein deep venous thrombosis for which the patient is status post retrievable IVC filter implant in this admission and currently with Eliquis on hold. 6. FOBT positive anemia with duodenal ulcer and evaluation by GI. 7. Peripheral artery disease. PTs by Doppler are abnormal. 8. Hyperdynamic left ventricular systolic function with LVEF more than 70%. RECOMMENDATIONS: 1. Defer antibiotic management to primary care. 2. Overall, the patient has guarded prognosis. I am concerned about labile blood pressure and worsening LORAINE and metabolic acidosis. Increased risk for morbidity and mortality. Appreciate input from other treating physicians. Continue to keep the patient in hospital for now, closely monitoring. Srinivas Khalil MD AFV/MODL /[id number]
[2018-11-25] MEDS ORDERED: CALCIUM GLUCONATE 10% INJ 9.3 MEQ in SODIUM CHLORIDE 0.9% 100 ML 100 ML IV ONE (14:00)
[2018-11-25] MEDS: MIDODRINE 2.5 MG TAB PO SCH (16:00)
--- NOTE | 2018-11-25 16:41 | Progress Note ---
DATE: 11/25/2018 Renal Progress Note SUBJECTIVE: Followed for acute kidney injury. The patient's kidney function continues to worsen. The patient has ongoing sepsis. The patient remains hypotensive. The patient's blood pressure labile. Today, blood pressures have been anywhere from 80s to 106 over 50s. The patient remains tachycardic, in a septic shock situation. The patient's creatinine has gotten worse today at 4.18. Bicarb is little bit better at 16. After IV fluids, bicarb was started yesterday. The patient's calcium is slightly low at 7.2, phosphorus 3.5. Does not have any overt shortness of breath. No nausea, no vomiting. OBJECTIVE: VITAL SIGNS: Have been noted and are stable. Blood pressure is as outlined above. LUNGS: Minimal rales at bases bilaterally. CARDIOVASCULAR: S1, S2. No rub ABDOMEN: Soft, nontender. EXTREMITIES: 2+ edema. No clubbing. No cyanosis. LABS: Sodium 138, potassium 3.6, BUN is 26, creatinine is 4.18, calcium 7.2. BNP was 16.9. IMPRESSION AND PLAN: 1. Acute kidney injury. Continue gentle IV fluid hydration. The patient appears to be developing generalized edema. We will continue the IV fluids with bicarb half NS plus 75 mEq of sodium bicarb at 75 mL/hour. If the patient does not have improvement in kidney function by tomorrow, will likely require acute dialysis. We will continue monitor closely and recheck labs again in the morning. 2. Hypotension. We will place on low-dose of midodrine. Cannot add renal dose dopamine at this point since the patient is already tachycardic. 3. If the blood pressure does not improve, recommend to place the patient in ICU and consider adding IV Levophed as a vasopressor. 4. Metabolic acidosis. Continue IV fluids with bicarb as outlined above. Bicarb level has gone up to 16, which is improvement from yesterday. We will also give one amp of bicarb IV push as well. 5. Hypocalcemia, replaced with 2 g calcium. Ezra Knight MD TH/MODL /[id number]
--- NOTE | 2018-11-25 17:41 | Progress Note ---
DATE: 11/25/2018 CHIEF COMPLAINT: Generalized weakness and shortness of breath with bilateral lower extremity edema and redness. SUBJECTIVE: The patient is seen and examined at the bedside. She is a little more short of breath post MRI. She was given Lasix this morning per Nephrology. She denies any chest pain, fever, chills, nausea, or vomiting. PHYSICAL EXAMINATION: VITAL SIGNS: Temperature 98.7, pulse is 125, respirations 28, blood pressure is 80/45, and pulse ox is 100% on 3 L of oxygen via nasal cannula. GENERAL: No acute distress. HEENT: Normocephalic, atraumatic. LUNGS: Decreased breath sounds. CARDIOVASCULAR: Sinus tachycardia, regular rate and rhythm. ABDOMEN: Soft and nontender. Obese. NEUROLOGIC: Alert, awake, and oriented x3. : Mckee in place for urinary retention. MUSCULOSKELETAL: Lower extremities with redness improving mildly and mild edema. SKIN: Redness and rash improving in the bilateral lower extremities. PSYCH: Normal affect, sleepy, fatigued. LABORATORY DATA: WBC 12.5, hemoglobin is 8.8, hematocrit is 27.8, and platelet is 333. Chemistry; sodium is 138, potassium is 3.6, carbon dioxide is 16, creatinine is 4.18. Estimated GFR is 11. Calcium is 7.2. IMAGING: MRI pending to rule out osteomyelitis. IMPRESSION: 1. Sepsis, present on admission due to cellulitis. Continue on doxycycline IV b.i.d. per Infectious Disease doctor. MRI of the lower extremities pending to rule out osteomyelitis. 2. Acute kidney failure. Creatinine is 4.1 today. IV fluids changed to bicarb, Lasix, and calcium gluconate given. Discussed with Nephrology, who plans dialysis in the near future. 3. Hypotension. Midodrine has been added. 4. Sinus tachycardia. Denies any chest pain. We will continue with bicarb. 5. Metabolic acidosis, likely due to acute kidney injury. Continue bicarb and continue to monitor. 6. Anemia, now stable. We will continue to monitor closely. 7. Acute deep venous thrombosis, status post IVC filter per Cardiology. 8. Diabetes type 2. Continue sliding scale coverage as needed. 9. High cholesterol. 10. History of peripheral arterial disease. Defer to Dr. Ndiaye. 11. Hypocalcemia, replaced. 12. Debility. Continue physical therapy as tolerated. 13. Morbid obesity with BMI of 36. 14. Deep venous thrombosis prophylaxis, Eliquis has been held due to anemia. PLAN: Plan is to await on MRI of the left lower extremities to rule out osteomyelitis and repeat labs in a.m. May need dialysis in the near future. Dictated by GEORGE Chew Javi Blake MD MY/MODL /[id number]
[2018-11-26] VITALS (8 sets, daily range): BP systolic 80–108; BP diastolic 43–62
--- NOTE | 2018-11-26 00:45 | NUR ---
Midline dressing changed.
[2018-11-26 06:13] LABS: BASOPHILS # (AUTO) 0.1 (0.0-0.1); BASOPHILS % 0.9 % (0.0-1.0); EOSINOPHILS # (AUTO) 0.1 (0.0-0.4); EOSINOPHILS % 0.6 % (0.0-6.0); HEMATOCRIT 27.9 % (34.2-44.1); HEMOGLOBIN 8.8 g/dL (12.0-16.0); LYMPHOCYTES # (AUTO) 1.6 (1.0-3.2); LYMPHOCYTES % 11.6 % (18.0-39.1); MEAN CORPUSCULAR HEMOGLOBIN 28.6 pg (28-32); MEAN CORPUSCULAR HGB CONC 31.5 g/dL (31-35); MEAN CORPUSCULAR VOLUME 90.6 fL (81-99); MONOCYTES # (AUTO) 0.6 (0.2-0.8); MONOCYTES % 4.1 % (4.4-11.3); NEUTROPHILS # (AUTO) 10.3 (2.1-6.9); NEUTROPHILS % 73.9 % (38.7-80.0); PLATELET COUNT 312 x10e3/uL (140-360); RED BLOOD COUNT 3.08 x10e6/uL (3.6-5.1); RED CELL DISTRIBUTION WIDTH 16.8 % (11.7-14.4)
--- NOTE | 2018-11-26 06:15 | NUR ---
IV fluids leaking from Midline access. Two attempts made to insert peripheral IV proved futile. Dr. Blake notified. Order received to replace MIdline. Disclosure and Consent form signed via [employer] Operator (Jo-Ann Alcantara--[id number]).
[2018-11-26 06:28] LABS: ANION GAP 19.9 mmol/L (8-16); CREATININE, SERUM 4.34 mg/dL (0.57-1.11); PHOSPHORUS 3.7 MG/DL (2.3-4.7); POTASSIUM 3.9 mmol/L (3.5-5.1)
[2018-11-26 06:42] LABS: CALCIUM 6.8 mg/dL (8.4-10.2)
--- NOTE | 2018-11-26 07:00 | NUR ---
Dr. Blake notified of critical lab values---Ca (6.8) and Mg (1.0). Order received for 1g Calcium Gluconate IV x 1 and 2g Magnesium Sulphate IV x 1.
--- NOTE | 2018-11-26 07:20 | NUR ---
PATIENT IN BED RESTING WITH NO RESPIRATORY DISTRESS. NARVAEZ CATHETER DRAINING YELLOW URINE. REDNESS AND SWELLING TO LOWER EXTREMITIES WITH SOME BLISTERS TO LEFT FOOT, BRUISES WITH SKIN TEARS TO BOTH ARMS. BED IN LOWER POSITION, CALL LIGHT AT REACH.
[2018-11-26] MEDS: INSULIN LISPRO 100 UNIT/1 ML 3ML VIAL SQ SCH ×4 (07:30→21:00)
[2018-11-26] MEDS ORDERED: CALCIUM GLUCONATE 10% INJ 4.65 MEQ in SODIUM CHLORIDE 0.9% 50ML 50 ML IV ONE (08:00)
[2018-11-26] MEDS ORDERED: MAGNESIUM SULFATE 2GM/50ML 50 ML IV ONE ×2 (08:00→12:00)
--- NOTE | 2018-11-26 08:26 | Diagnostic Imaging Report ---
TECHNIQUE: Magnetic resonance imaging of the LEFT foot was performed WITHOUT injected contrast. HISTORY: Pain COMPARISON: None available. DISCUSSION: Diffuse subcutaneous edema throughout the left foot. Soft tissue ulceration of the medial ankle. Ankle and subtalar joint effusions. Scattered bone marrow edema with T1 replacement predominantly involving the talus and mildly involving the dorsal calcaneus and distal tibia. Insufficiency fracture of the fourth metacarpal neck. Advanced tendinopathy posterior tibial tendon, otherwise. IMPRESSION: Probable osteomyelitis of the talus, dorsal calcaneus, and distal tibia. A tagged white blood cell nuclear medicine scan may be of benefit. Insufficiency fracture of the fourth metacarpal neck. Posterior tibial tendinopathy with findings of PTT dysfunction. Signed by: Dr. Uche Blue M.D. on 11/26/2018 8:23 AM
[2018-11-26] MEDS: MIDODRINE 2.5 MG TAB PO SCH ×3 (08:40→16:44)
[2018-11-26] MEDS: DOCUSATE SODIUM 100 MG CAP PO SCH ×2 (09:24→16:53)
[2018-11-26] MEDS: ONDANSETRON HCL INJ 2MG/ML 2ML 2 MG/ML VIAL IV PRN (10:50)
--- NOTE | 2018-11-26 11:00 | NUR ---
NEW MIDLINE INSERTED TO RIGHT UPPER ARM. IV MEDICATIONS IN PROGRESS. PATIENT REPOSITIONED IN BED. CALL LIGHT AT REACH.
[2018-11-26] MEDS: DOXYCYCLINE 100MG/NS 100ML 100 ML IV SCH ×2 (12:00→21:00)
--- NOTE | 2018-11-26 14:09 | Progress Note ---
DATE: 11/26/2018 Cardiology Progress Note SUBJECTIVE: Denies any chest pain or shortness of breath and was started on midodrine for episodes of hypotension. OBJECTIVE: VITAL SIGNS: Temperature 96.2, heart rate 114, blood pressure 101/54, respiratory rate 21, O2 saturation 99%, BMI 35. GENERAL: No acute distress, alert. NECK: No JVD. CHEST: Clear to auscultation. CARDIOVASCULAR: Regular rate and rhythm. Normal S1, S2. No S3 or S4. ABDOMEN: Soft, nontender. Bowel sounds positive. EXTREMITIES: 2+ edema, however, edema to both lower extremities. CARDIOVASCULAR MEDICATIONS: Reviewed. Midodrine 5 mg t.i.d. STUDIES: Reviewed. Sodium 139, potassium 3.9, chloride 106, bicarbonate 17, BUN 29, creatinine 4.3. White blood cells 14, hemoglobin 8.8, platelets 312. INR 1.5. AST 20, ALT 20, alkaline phosphatase 188. ASSESSMENT: A 68-year-old woman presents with: 1. Acute renal failure in the setting of chronic kidney disease. 2. Anemia. 3. Duodenal ulcer. 4. Acute on chronic diastolic heart failure. 5. Labile blood pressure with episode of hypotension, now improving with midodrine. 6. Right common femoral vein acute on chronic deep vein thrombosis. 7. 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 RECOMMENDATIONS: Continue current plan of care. Appreciate Nephrology input. The patient with metabolic acidosis and volume overload. Monitor closely. Srinivas Khalil MD AFTy/MODL /[id number]
--- NOTE | 2018-11-26 15:19 | NUR ---
PATIENT NOTED WITH REDNESS AND EXCORIATION TO LOWER ABDOMEN FOLD. MD NOTIFIED, NEW ORDER RECEIVED.
[2018-11-26] MEDS ORDERED: ONDANSETRON HCL 4 MG ORAL DISINTEGRATING TAB PO PRN (20:30)
--- NOTE | 2018-11-26 20:37 | Progress Note ---
DATE: 11/26/2018 SUBJECTIVE: The patient reports no abdominal pain. However, she has not had any BM for the last 5-6 days. Tolerating oral diet. REVIEW OF SYSTEMS: GENERAL: No fever or chills. CVS: No chest pain or palpitation. RESPIRATORY: No cough or expectoration. PHYSICAL EXAMINATION: VITAL SIGNS: Temperature 96.9, pulse ranging from 111-105, respirations 19, blood pressure 80/43 to 97/54, oxygen saturation 96% on 2 L of nasal cannula. GENERAL: Not in any acute distress. HEENT: Oral mucosa is moist. ABDOMEN: Obese, soft, nondistended, nontender. No mass or hernia. Positive bowel sounds. MEDICATIONS: Reviewed as per APR. The apixaban has been started. LABORATORY DATA: Hemoglobin remains stable from 8.2-8.8, WBCs is up from 12.54 to 14, hematocrit 27.9, platelet count 312. Sodium 139, potassium 3.9, chloride 106, bicarb 17, BUN 29, creatinine 4.34. IMPRESSION: 1. Hemoglobin remains stable despite starting anticoagulants. No gross gastrointestinal bleeding. Upper endoscopy had revealed erosive gastritis and small cratered duodenal ulcer. Gastric biopsies show reactive gastropathy, no Helicobacter pylori infection. 2. Constipation. PLAN: standing bowel regimen, PPI twice daily. Jony Gomez MD SA/COLEL /[id number]
[2018-11-26] MEDS: SENNA-S TABLET PO SCH (22:04)
[2018-11-26] MEDS: SODIUM BICARBONATE 8.4% SYRING 75 ML in SODIUM CHLORIDE 0.45% 1,000 ML IV SCH (23:20)
[2018-11-27] VITALS (9 sets, daily range): BP systolic 77–104; BP diastolic 39–55
[2018-11-27] MEDS: MIDODRINE 2.5 MG TAB PO SCH ×4 (05:48→17:00)
--- NOTE | 2018-11-27 07:15 | NUR ---
PATIENT IN BED RESTING WITH EYES CLOSED, NO DISTRESS NOTED. IV FLUID INFUSING ORDERED. NARVAEZ CATHETER WITH YELLOW , CLOUDY URINE. SKIN TEAR TO BOTH ARMS. BED IN LOWER POSITION, CALL LIGHT AT REACH.
[2018-11-27] MEDS: INSULIN LISPRO 100 UNIT/1 ML 3ML VIAL SQ SCH ×4 (07:30→21:00)
[2018-11-27] MEDS: PANTOPRAZOLE SOD 40 MG TABEC PO SCH (07:59)
[2018-11-27] MEDS: POLYETHYLENE GLYCOL 3350 17 GM PACK PO SCH (09:00)
[2018-11-27] MEDS: NYSTATIN 15 GM POWDER UD BTL TOP SCH (09:39)
[2018-11-27] MEDS: DOXYCYCLINE 100MG/NS 100ML 100 ML IV SCH ×2 (09:39→22:00)
[2018-11-27] MEDS: ACETAMINOPHEN 325 MG TAB PO PRN (11:05)
[2018-11-27 11:17] LABS: BASOPHILS # (AUTO) 0.1 (0.0-0.1); BASOPHILS % 0.4 % (0.0-1.0); EOSINOPHILS # (AUTO) 0.2 (0.0-0.4); EOSINOPHILS % 1.3 % (0.0-6.0); HEMATOCRIT 26.9 % (34.2-44.1); HEMOGLOBIN 8.8 g/dL (12.0-16.0); LYMPHOCYTES # (AUTO) 2.4 (1.0-3.2); LYMPHOCYTES % 14.6 % (18.0-39.1); MEAN CORPUSCULAR HEMOGLOBIN 28.5 pg (28-32); MEAN CORPUSCULAR HGB CONC 32.7 g/dL (31-35); MEAN CORPUSCULAR VOLUME 87.1 fL (81-99); MONOCYTES # (AUTO) 0.8 (0.2-0.8); MONOCYTES % 4.6 % (4.4-11.3); NEUTROPHILS # (AUTO) 11.5 (2.1-6.9); NEUTROPHILS % 69.5 % (38.7-80.0); PLATELET COUNT 325 x10e3/uL (140-360); RED BLOOD COUNT 3.09 x10e6/uL (3.6-5.1); RED CELL DISTRIBUTION WIDTH 17.1 % (11.7-14.4)
[2018-11-27 11:31] LABS: ANION GAP 18.7 mmol/L (8-16); CALCIUM 7.3 mg/dL (8.4-10.2); CREATININE, SERUM 5.02 mg/dL (0.57-1.11); POTASSIUM 3.7 mmol/L (3.5-5.1)
[2018-11-27] MEDS ORDERED: ALBUMIN 25% 25GM 100ML 0.25 GM/ML BTL IV ONE (11:45)
--- NOTE | 2018-11-27 13:30 | NUR ---
MD IN TO SEE PATIENT. NOTIFIED OF PATIENT INABILITY TO EAT AND CONTINUOUS LOW B/P. NEW ORDERS RECEIVED.
--- NOTE | 2018-11-27 13:41 | Progress Note ---
DATE: 11/26/2018 CHIEF COMPLAINT: Generalized weakness and shortness of breath with left lower extremity pain. SUBJECTIVE: The patient has been lying in bed with no acute distress. Creatinine has been worsening. She is still with complaints of nausea and poor appetite. She denies any chest pain, fever, or chills. PHYSICAL EXAMINATION: VITAL SIGNS: Temperature 96.9, pulse is 111, blood pressure 80/43, pulse ox 95% on 3 L of O2. GENERAL: No acute distress. HEENT: Normocephalic, atraumatic. LUNGS: With decreased breath sounds. CARDIOVASCULAR: Sinus tachycardia. Regular rate. ABDOMEN: Soft, but mild tenderness. Obese. NEUROLOGIC: Alert, awake, and oriented x3. GENITOURINARY: Mckee in place. MUSCULOSKELETAL: Lower extremity redness and mild edema. Moves all extremities. SKIN: Redness and rash, healing bilateral lower extremity. PSYCHIATRIC: Normal affect. LABORATORY DATA: WBC 14.0, hemoglobin 8.8, hematocrit 27.9, platelets 312. Sodium 139, potassium 3.9, carbon dioxide 17, creatinine 4.34, calcium is 6.8, magnesium 1.0, and albumin 1.2. Imaging MRI of the left foot shows probable osteomyelitis of the talus, dorsal calcaneus, and distal tibia. IMPRESSION AND PLAN: 1. Sepsis, present on admission due to cellulitis, now may have probable osteomyelitis. Currently on doxycycline IV b.i.d. We will defer antibiotics management to Infectious Disease doctor. 2. Acute kidney failure. Creatinine is now 4.4. Continue bicarb, Lasix, and calcium gluconate. We will defer to Nephrology. 3. Hypotension. DICTATION ENDS HERE Dictated by GEORGE Chew Javi Blake MD MY/MODL /[id number]
--- NOTE | 2018-11-27 14:11 | Progress Note ---
DATE: 11/26/2018 CHIEF COMPLAINT: Generalized weakness and bilateral lower extremity edema and pain. SUBJECTIVE: The patient is seen and examined, noted to be fatigued. Discussed the importance of eating. She denies any chest pain, abdominal pain, nausea, vomiting, or fever. PHYSICAL EXAMINATION: GENERAL: No acute distress. HEENT: Normocephalic, atraumatic. LUNGS: Decreased breath sounds. CARDIOVASCULAR: Sinus tachycardia and regular rate. ABDOMEN: Obese, soft and nontender. NEUROLOGIC: Alert and oriented x3, but more sleepier. : Mckee. MUSCULOSKELETAL: Decreased ROM. SKIN: Redness and rash on bilateral lower extremities. LABORATORY DATA: WBC 14, hemoglobin 8, hematocrit 27.9. Sodium 139, potassium 3.9, creatinine 4.34, calcium is 6.8, phosphorus 3.7, magnesium 1.0, albumin is 1.2. IMAGING DATA: MRI showed probable osteomyelitis. IMPRESSION AND PLAN: 1. Sepsis, present on admission due to left lower extremity cellulitis and osteomyelitis. Continue doxycycline IV b.i.d. per Dr. Fletcher. We will consult Podiatry. 2. Acute kidney failure. Creatinine 4.3. Continue bicarb. Replace calcium and magnesium. 3. Hypotension. Midodrine has been started. 4. Sinus tachycardia and denies any chest pain. We will continue with IV fluids. 5. Hypocalcemia and hypomagnesium, replaced. 6. Anemia, stable. We will continue to monitor closely. 7. Acute deep vein thrombosis status post IVC filter by Cardiology. 8. Diabetes type 2. Continue sliding scale insulin. 9. High cholesterol. 10. History of peripheral artery disease. Defer to Dr. Ndiaye. 11. Debility. Continue physical therapy as tolerated. 12. Poor p.o. intake. Encourage to increase p.o. intake and add Glucerna with meals. Dictated by GEORGE Chew Javi Blake MD MY/MODL /[id number]
--- NOTE | 2018-11-27 14:29 | NUR ---
CONSENT FOR DIALYSIS CATHETER PLACEMENT SIGNED AND RADIOLOGY CALLED.
--- NOTE | 2018-11-27 14:41 | Progress Note ---
DATE: 11/27/2018 CHIEF COMPLAINT: Generalized weakness, shortness of breath, and left lower extremity pain. SUBJECTIVE: The patient is seen and examined at the bedside, still with hypotension, bilateral lower extremity redness and edema improving mildly. She is with poor appetite. Denies any chest pain, fever, chills, nausea, or vomiting. PHYSICAL EXAMINATION: VITAL SIGNS: Temperature 97.4, pulse is 105, respirations 20, blood pressure 78/48, pulse ox is 98% on 2 L of oxygen. GENERAL: No acute distress. HEENT: Normocephalic, atraumatic. LUNGS: Decreased breath sounds. CARDIOVASCULAR: Sinus tachy, regular rhythm. ABDOMEN: Soft and nontender. Obese. NEUROLOGIC: Alert, awake, and oriented x3. GENITOURINARY: Mckee in place for urinary retention. MUSCULOSKELETAL: Decreased range of motion due to pain at the left lower leg. SKIN: Redness and rash on bilateral lower extremities. LABORATORY DATA: Pending from this morning. IMAGING: Left foot MRI showed probable osteomyelitis of the talus, dorsal calcaneus, and distal tibial. IMPRESSION AND PLAN: 1. Sepsis, present on admission, due to cellulitis and osteomyelitis of the left foot. Continue doxycycline IV. Further recommendations per Infectious Disease. We will consult Podiatry for evaluation. 2. Acute kidney failure, creatinine worsening. Continue on bicarb, Lasix, and calcium gluconate per Nephrology. Plans, dialysis in the near future. 3. Hypotension. Midodrine has been started. 4. Sinus tachycardia. Denies chest pain. We will continue to monitor. 5. Anemia, now stable. We will continue to monitor closely. 6. Acute deep vein thrombosis, status post inferior vena cava filter by Cardiology. 7. Diabetes type 2. Continue sliding scale coverage as needed. 8. High cholesterol. 9. History of peripheral artery disease, aware. 10. Hypocalcemia, replaced. 11. Debility. Continue physical therapy as tolerated. 12. Morbid obesity with BMI of 36. 13. Poor p.o. intake, added Glucerna for supplements. Plan is to continue with IV antibiotics, pending Podiatry evaluation and dialysis planned, likely today. Dictated by Beth Conti, ANP Javi Blake MD MY/MODL /[id number] Seen and examined, updated son at the bedside. Agree with the findings and plan as documented by GEORGE Conti. DEMARIO
--- NOTE | 2018-11-27 15:10 | NUR ---
PATIENT OFF UNIT TO RADIOLOGY.
--- NOTE | 2018-11-27 15:37 | NUR ---
PATIENT REQUESTED HER DAUGHTER TO BE NOTIFIED OF THE DIALYSIS CATHETER PLACEMENT. DAUGHTER CALLED AT [phone], AND NOTIFIED.
--- NOTE | 2018-11-27 16:30 | NUR ---
PATIENT BACK TO UNIT FROM RADIOLOGY. HAD DIALYSIS CATHETER PLACED TO RIGHT UPPER CHEST. SMALL AMOUNT OF BED NOTED ON THE DRESSING. DENIED PAIN AT THIS TIME. REPOSITIONED IN BED. V/S 98.2-99-20-97/55 AND 95% ON RA. CALL LIGHT AT REACH.
--- NOTE | 2018-11-27 16:42 | Diagnostic Imaging Report ---
PROCEDURE: Non-tunneled central venous catheter placement Procedural Personnel Attending physician(s): Stacia Castelan MD Fellow physician(s): None Resident physician(s): None Advanced practice provider(s): None Pre-procedure diagnosis: Acute kidney injury Post-procedure diagnosis: Same Indication: Performance of hemodialysis Additional clinical history: None Complications: No immediate complications. IMPRESSION: Insertion of right-sided non-tunneled triple-lumen temporary dialysis catheter, with tip in the expected location of the right atrium. Plan: The catheter may be used immediately. PROCEDURE SUMMARY: - Venous access with ultrasound guidance - Non-tunneled central venous catheter insertion with fluoroscopic guidance - Additional procedure(s): None PROCEDURE DETAILS: Pre-procedure Consent: Informed consent for the procedure including risks, benefits and alternatives was obtained and time-out was performed prior to the procedure. Preparation (MIPS): The site was prepared and draped using all elements of maximal sterile barrier technique including sterile gloves, sterile gown, cap, mask, large sterile sheet, sterile ultrasound probe cover, hand hygiene and cutaneous antisepsis with 2% chlorhexidine. Medical reason for site preparation exception (MIPS): Not applicable Anesthesia/sedation Level of anesthesia/sedation: No sedation Access Local anesthesia was administered. The vessel was sonographically evaluated and determined to be patent. Real time ultrasound was used to visualize needle entry into the vessel and a permanent image was stored. Vein accessed: Internal jugular vein Access technique: Micropuncture set with 21 gauge needle Catheter placement The access site was dilated and the catheter was placed into the vein over a wire under fluoroscopic guidance. The catheter tip location was fluoroscopically verified and a permanent image was stored.. A sterile dressing was applied. Catheter placed: Bard triple lumen Catheter size (Indonesian): 13 Catheter length (cm): 1 Catheter flush: Normal saline Catheter securement technique: Non-absorbable suture Contrast Contrast agent: None Radiation Dose Fluoroscopy time (minutes): 0.0 Reference air kerma (mGy): 0.68 Additional Details Additional description of procedure: None Equipment details: None Specimens removed: None Estimated blood loss (mL): Less than 10 Standardized report: [email or web address] Attestation Signer name: Stacia Castelan MD I attest that I was present for the entire procedure. I reviewed the stored images and agree with the report as written. Signed by: Stacia Castelan MD on 11/27/2018 4:38 PM
--- NOTE | 2018-11-27 16:50 | NUR ---
CHERYL CALLED TO REQUEST A DIALYSIS NURSE FOR TODAY'S TREATMENT. RESEARCH LABORATORY MANAGER STATED THAT A DIALYSIS NURSE WILL GIVE ME A CALL. AWAITING FOR CALL BACK.
--- NOTE | 2018-11-27 19:05 | NUR ---
Bedside rounds completed with morning nurse. Pt alert to name. Lying in bed HOB 30 degrees. Denies pain at this time. Call watson within reach. Will continue to monitor.
--- NOTE | 2018-11-27 19:48 | Progress Note ---
DATE: 11/27/2018 Cardiology Progress Note SUBJECTIVE: No complaints today. Being prepped for dialysis catheter placement. OBJECTIVE: VITAL SIGNS: Temperature 97.2, heart rate 108, respiratory rate 18, blood pressure 80/48, and O2 saturation 97% on nasal cannula. GENERAL: In no acute distress. Alert. The rest of exam deferred as the patient is currently being prepped for her procedure. CARDIOVASCULAR MEDICATIONS: Reviewed. Midodrine 10 mg t.i.d. uptitrated and sodium bicarb drip. LABORATORY DATA: White blood cells 16.5, hemoglobin 8.8, and platelets 325. Sodium 135, potassium 3.7, chloride 103, bicarbonate 17, BUN 38, creatinine 5, glucose 159, calcium 7.3, and albumin 1.2. ASSESSMENT: A 68-year-old woman with: 1. Acute renal failure in the setting of chronic kidney disease, anemia, duodenal ulcer, [id number] diastolic heart failure, labile blood pressure with episodes of hypotension, now improved, on midodrine. 2. Right common femoral vein, [id number] deep venous thrombosis. 3. 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 RECOMMENDATIONS: 1. Continue current cardiovascular medications. 2. I will up-titrate midodrine 10 mg t.i.d. Depending on response, we may consider additional therapy. Remains hypotensive. May need Levophed for pressor support in intensive care unit. MD DAVID Graves/MODBruce /[id number]
--- NOTE | 2018-11-27 20:23 | Progress Note ---
DATE: 11/27/2018 Nephrology Progress Note SUBJECTIVE: The patient remained anorectic, not eating much. Denies shortness of breath. Serum creatinine continues to rise, despite IV fluids. OBJECTIVE: VITAL SIGNS: Blood pressure 80/48, respirations 18 per minute, heart rate 108 per minute. She is afebrile. NECK: Supple without jugular venous distention. CHEST: Auscultation reveals clear lung green bilaterally. CARDIOVASCULAR: Shows normal S1, S2, without murmur, rub, or gallop. ABDOMEN: Soft, obese, not distended. EXTREMITIES: Both lower legs have chronic inflammation and some nonpitting edema. NEUROLOGICAL: She is alert and appears oriented. No obvious focal deficits. MEDICATIONS: Reviewed. She is presently getting IV half normal saline with 75 mEq/L of sodium bicarbonate added at 75 mL/hour, midodrine 5 mg t.i.d., doxycycline, IV insulin and pantoprazole 40 mg b.i.d. LABORATORY DATA: Hemoglobin 8.8, white count 16.5, and normal platelet count. Serum chemistries from today shows sodium of 135, potassium 3.7, chloride 103, bicarb 17, BUN 38, creatinine up from 4.34 yesterday to 5.02, glucose 159, total calcium 7.3 with a serum albumin of 1.2. IMPRESSION: 1. Acute kidney injury, likely secondary to sepsis and hypotension. Renal function continuing to worsen. The patient now has uremic symptoms and is agreeable to start hemodialysis. 2. Metabolic acidosis, secondary to above. 3. Hypotension, secondary to sepsis. 4. Blood pressure low despite midodrine. 5. Anemia. PLAN: 1. I discuss with patient the start of hemodialysis through an building materials sales attendant, who is an RN. The patient seems to understand procedure, knows about dialysis, and is agreeable to proceed. I did inform her that this is most likely going to be an acute period of dialysis before she recovers the kidney function. We will proceed to placement of temporary hemodialysis catheter. We will dialyze for the next 3 days in an incremental fashion. 2. May continue current IV fluids for now. 3. Increase midodrine to 10 mg t.i.d. Should dialysis become difficult with current blood pressure, she may need to be transfer to ICU and placed on vasopressors. MD JOCELYNN Ingram/PRECIOUS /[id number]
[2018-11-27] MEDS: SENNA-S TABLET PO SCH (22:00)
[2018-11-28] VITALS (8 sets, daily range): BP systolic 92–108; BP diastolic 44–52
--- NOTE | 2018-11-28 01:30 | NUR ---
[facility] NURSE HERE TO DIALYZE PATIENT. PATIENT HAS LOW BP 102/47. DR. RIOJAS STATED PATIENT WILL BE DIALYZED IN THE MORNING AFTER ROUNDS ARE MADE.
--- NOTE | 2018-11-28 07:08 | NUR ---
Received patient lying in bed. Respiration even and unlabored without SOB. Call light in reach.
[2018-11-28] MEDS: INSULIN LISPRO 100 UNIT/1 ML 3ML VIAL SQ SCH ×4 (07:30→21:00)
[2018-11-28] MEDS: PANTOPRAZOLE SOD 40 MG TABEC PO SCH (08:13)
[2018-11-28] MEDS: POLYETHYLENE GLYCOL 3350 17 GM PACK PO SCH (08:14)
[2018-11-28] MEDS: DOXYCYCLINE 100MG/NS 100ML 100 ML IV SCH ×2 (09:09→21:00)
[2018-11-28] MEDS: ONDANSETRON HCL INJ 2MG/ML 2ML 2 MG/ML VIAL IV PRN (09:33)
[2018-11-28] MEDS: NYSTATIN 15 GM POWDER UD BTL TOP SCH (10:29)
[2018-11-28] MEDS: MIDODRINE 2.5 MG TAB PO SCH ×3 (10:30→17:03)
--- NOTE | 2018-11-28 11:45 | NUR ---
Mckee catheter removed per ordered. Catheter tip intact, Output 300 dark cloudy urine draining to bag.
--- NOTE | 2018-11-28 12:52 | NUR ---
Patient is not eating her lunch. 2 units insulin sliding scale not given.
--- NOTE | 2018-11-28 13:11 | Progress Note ---
DATE: 11/28/2018 Cardiology Progress Note SUBJECTIVE: No new complaints today other than feeling hot. Denies chest pain or shortness of breath. OBJECTIVE: VITAL SIGNS: Temperature 97.5, heart rate 101, blood pressure 95/50, respiratory rate 20, and O2 saturation 92%. BMI of 35. GENERAL: In no acute distress. Alert, dialysis catheter in place. CHEST: Clear to auscultation. CARDIOVASCULAR: Regular rate and rhythm. Normal S1 and S2. ABDOMEN: Soft, morbidly obese. EXTREMITIES: With 2+ edema and erythema to both lower extremities. CARDIOVASCULAR MEDICATIONS: Reviewed. Midodrine 10 mg t.i.d., Eliquis is on hold. STUDIES: Sodium 135, potassium 3.7, chloride 103, bicarbonate 17, BUN 38, creatinine 5.02, and glucose 159. White blood cells 16.5, hemoglobin 8.8, platelets 325. INR 1.5, PTT 19, PTT 50. AST 20, ALT of 20, alkaline phosphatase 188, total bilirubin 0.8. ASSESSMENT: A 68-year-old woman, presents with leg cellulitis with associated edema, [id number] common femoral vein deep vein thrombosis, status post retrievable inferior vena cava filter implant. Anticoagulation currently on hold. Given fecal occult blood test noted to have non-actively bleeding duodenal ulcer. Evaluated by GI. Anticoagulation was being resumed. However, renal failure noted as well as metabolic acidosis and electrolyte derangements, for which the patient has had anticoagulation placed again on hold. Dialysis catheter in place, pending dialysis likely today. RECOMMENDATIONS: Overall guarded prognosis. She does have rvjjc-nc-vpllisv diastolic heart failure too in addition to other comorbidities like diabetes and hypertension. Currently with hypotensive episodes, for which midodrine has to be adjusted upwards. I suspect a component of labile blood pressure may be related to metabolic disturbances. We will assess response to current plan of care by Renal. If necessary, can transfer to ICU and initiate Levophed drip to maintain map over 65. MD DAVID Graves/PRECIOUS /[id number]
--- NOTE | 2018-11-28 15:42 | Consultation ---
DATE OF CONSULTATION: 11/28/2018 REASON FOR CONSULTATION: Left foot. HISTORY OF PRESENTING ILLNESS: This is a 68-year-old female with past medical history of type 2 diabetes, peripheral vascular disease, hypertension, and DVT, who was admitted to the emergency room approximately 2 weeks ago for worsening left lower extremity pain and swelling, which had been going on for approximately 2 weeks. She failed outpatient antibiotic therapy with p.o. antibiotics with Bactrim and clindamycin. Upon admission, she was noted to have an elevated temperature as well as increased white blood cell count and a chronic DVT was found on imaging studies. The patient was placed on antibiotics. IVC filter was placed. Podiatry is being consulted to evaluate the left foot after MRI revealed osteomyelitis. This patient is known to me from previous visits to the outpatient clinic. The last time, the patient was seen in the office was in September of this year. She had a superficial blister to the plantar aspect of the left foot, which healed without complication. The patient has a chronic posterior tibial tendon tear, which was being treated with orthotics and diabetic shoes. The patient is seen at bedside this morning with a family member. She relates to [id number] pain to the left lower extremity. The patient currently denies nausea or vomiting, chest pain, but relates to some shortness of breath. No other pedal complaints. PAST MEDICAL HISTORY: Type 2 diabetes, peripheral neuropathy, peripheral vascular disease, hypercholesterolemia, DVT, hypertension, and acute kidney injury. PAST SURGICAL HISTORY: C-sections, cataract, and hernia. FAMILY HISTORY: Diabetes. SOCIAL HISTORY: Denies smoking, drinking, or any illicit drug usage. ALLERGIES: STATINS. REVIEW OF SYSTEMS: The patient currently denies nausea, vomiting, fever, or chills. No chest pain. Relates to some shortness of breath. PHYSICAL EXAMINATION: GENERAL: Alert and oriented x3, in no apparent distress. VITAL SIGNS: Today temperature 97.5, heart rate 101,respiratory rate is 20, blood pressure 95/50, and pulse ox 92% on nasal cannula. PROBLEM FOCUSED LOWER EXTREMITY PHYSICAL EXAM: VASCULAR: Dorsalis pedis and posterior tibial pulses are faintly palpable to bilateral lower extremities. Moderate +3 pitting edema is noted to bilateral lower extremities. Superficial blister formation is noted to the anterior aspect of the left camara with greater than 2 cm of erythema, edema, and warmth to bilateral lower extremities, worse to the left. No open lesions, ulcerations, or macerations are noted to the patient's left foot or ankle. NEUROLOGICAL: Sensation is diminished to light touch bilateral. MUSCULOSKELETAL: Pain on palpation is noted along the patient's right anterior camara blister formation. DERMATOLOGICAL: Superficial blisters noted to the anterior aspect of the mid camara anterior tibial area on the left lower extremity. Greater than 2 cm of periwound erythema, edema, and warmth are noted. No fluctuant area of focal localized fluid collection is can be palpated. The erythema extends approximately to the level of the distal tuberosity to the level of the proximal ankle joint. No open ulcerations are noted along the foot or the ankle joint. The plantar blister that was previously noted in the office is completely epithelialized. LABORATORY DATA: White blood cell count is 16.5, hemoglobin 8.8, hematocrit 26.9, and platelet count 325. Sodium 135, potassium 3.7, chloride 103, BUN 38, creatinine 5.02, and glucose 159. IMAGING DATA: Left lower extremity MRI reveals probable osteomyelitis of the talus and dorsal calcaneus, distal tibia. Tagged white blood cell nuclear scan may be beneficial. Insufficiency fracture of the 4th metatarsal neck. Posterior tibial tendinopathy with dysfunction. ASSESSMENT: 1. Left lower extremity cellulitis. 2. Type 2 diabetes. 3. Peripheral neuropathy. 4. Acute kidney injury. 5. Probable sepsis upon admission. PLAN: The patient was seen and evaluated. Discussed condition and treatment options with the patient in detail. At this point, a superficial blister is noted to the patient's left anterior tibial area. We will plan for a wound debridement and initiating wound care to the patient's left lower extremity. There does not appear to be any focal abscess or fluid collection that would require surgical intervention at this time. There are no open sores near the talus, calcaneus, or distal tibia where the MRI read osteomyelitis. Osteomyelitis is highly unlikely without a source such as a wound infection or puncture wound. Podiatry recommendation will be for IV antibiotics long- term to alleviate lower extremity cellulitis. We will discuss with primary care team. The Podiatry Service will continue to monitor as an inpatient. Sumit Barrientos DPM MAF/MODL /[id number]
--- NOTE | 2018-11-28 16:32 | NUR ---
Spoke with eugene Carlisle to resume Eliquis as ordered.
--- NOTE | 2018-11-28 16:34 | NUR ---
2 units insulin per sliding scale is hold, patient is not eating.
--- NOTE | 2018-11-28 16:42 | NUR ---
Nutrition Screen Note RD Recommendation for Physician: - Recommend adding 1800 ADA to current diet 2/2 hx of DM and on insulin - Continue Glucerna Shake TID Plan of Care: RD following, monitoring for tolerance and adequacy Nutrition reason for involvement: LOS Primary Diagnose(s): abscess or cellulitis of heel, chronic R femoral DVT PMH: CHF, DM2, HTN, PVD Ht: 62 in Wt: 194 lb(questionable wt) BMI: 35.5 kg/m2 IBW: [address] Assessment: 11/28: Pt sleeping at time of visit, daughter at bedside reports poor intake of meals and supplement the past few days and denies GI distress. Daughter with no questions or concerns at time of visit. Pt discussed during am rounds, pt pending initiation of HD 2/2 decline in renal function and worsening edema of legs. Labs and meds reviewed. Chart reviewed. Will monitor and continue to follow. (11/21) Pt seen today for LOS, discussed during am rounds. Pt reports fair appetite, states "I'm not a big eater", noted 25-75% meal intake. pt denies wt loss, reports UBW of 135#- questionable current wt in chart of 194# noted. Pt denies GI distress or difficulties chewing or swallowing. No questions or concerns at this time. Chart reviewed, per MD noted pt s/p EGD with duodenal ulcer noted. Labs and meds reviewed. Will monitor and continue to follow. Current Diet: Regular diet with Glucerna Shake TID Diet Tolerance: Tolerating PO Malnutrition Evaluation (11/21/18) The patient does not meet criteria for a specified degree of malnutrition at this time. Will re-evaluate at follow-up as appropriate. Diet Education Needs Assessment: Diet education not indicated. Nutrition Care Level: Low Signed: Lauren Jimenez RD, LD, [facility]
[2018-11-28] MEDS: APIXABAN 5 MG TABLET PO SCH (17:03)
--- NOTE | 2018-11-28 19:00 | NUR ---
Completed bedside rounds with morning nurse. Pt alert and oriented to name. Right side lying in bed. Denies pain at this time. Family at bedside. Call watson within reach. Will continue to monitor.
--- NOTE | 2018-11-28 19:05 | NUR ---
Report given to intelligence officer basic. Patient lying in bed with eyes open. Respiration even and unlabored without SOB. Call light in reach.
[2018-11-28] MEDS: SENNA-S TABLET PO SCH (21:00)
[2018-11-28] MEDS ORDERED: SODIUM CHLORIDE 0.9% 1000ML 1,000 ML IV SCH (21:45)
[2018-11-28] MEDS ORDERED: MANNITOL 25% 12.5GM/50 ML VIAL IV ONE (21:45)
[2018-11-28] MEDS ORDERED: HEPARIN SOD (PORCINE) 5,000 UNIT/ML VIAL ONE (22:50)
[2018-11-29] VITALS (8 sets, daily range): BP systolic 85–97; BP diastolic 44–54
[2018-11-29] MEDS: SODIUM BICARBONATE 8.4% SYRING 75 ML in SODIUM CHLORIDE 0.45% 1,000 ML IV SCH ×3 (00:08→23:22)
[2018-11-29 05:25] LABS: BASOPHILS # (AUTO) 0.2 (0.0-0.1); EOSINOPHILS # (AUTO) 0.5 (0.0-0.4); EOSINOPHILS % 2.5 % (0.0-6.0); LYMPHOCYTES # (AUTO) 3.5 (1.0-3.2); LYMPHOCYTES % 17.7 % (18.0-39.1); MEAN CORPUSCULAR HGB CONC 32.1 g/dL (31-35); MEAN CORPUSCULAR VOLUME 87.2 fL (81-99); MONOCYTES # (AUTO) 0.7 (0.2-0.8); MONOCYTES % 3.8 % (4.4-11.3); NEUTROPHILS # (AUTO) 12.2 (2.1-6.9); NEUTROPHILS % 61.6 % (38.7-80.0); PLATELET COUNT 283 x10e3/uL (140-360); RED BLOOD COUNT 3.21 x10e6/uL (3.6-5.1)
[2018-11-29 05:41] LABS: ANION GAP 16.5 mmol/L (8-16); CREATININE, SERUM 3.89 mg/dL (0.57-1.11); POTASSIUM 3.5 mmol/L (3.5-5.1)
--- NOTE | 2018-11-29 07:25 | NUR ---
PT IN BED SLEEPING NO S/S DISCOMFORT,
[2018-11-29] MEDS: INSULIN LISPRO 100 UNIT/1 ML 3ML VIAL SQ SCH ×4 (07:30→21:00)
--- NOTE | 2018-11-29 08:00 | NUR ---
ASSISTED PT UP ON SIDE OF BED TOLERATED WELL MAX ASSIST
--- NOTE | 2018-11-29 08:15 | NUR ---
ASISTED BACK TO BED,DR ABDULLAHI HERE CHANGED DSRG TO LT LEG
[2018-11-29] MEDS: PANTOPRAZOLE SOD 40 MG TABEC PO SCH (08:30)
[2018-11-29] MEDS: APIXABAN 5 MG TABLET PO SCH ×2 (09:00→17:36)
[2018-11-29] MEDS: POLYETHYLENE GLYCOL 3350 17 GM PACK PO SCH (09:00)
[2018-11-29] MEDS: DOXYCYCLINE 100MG/NS 100ML 100 ML IV SCH ×2 (09:00→21:00)
[2018-11-29] MEDS ORDERED: ONDANSETRON HCL 4 MG ORAL DISINTEGRATING TAB PO PRN (10:00)
--- NOTE | 2018-11-29 10:02 | Progress Note ---
DATE: 11/29/2018 SUBJECTIVE: This is a 68-year-old female with past medical history of type 2 diabetes, peripheral neuropathy, hypertension, acute renal injury, and DVT, who is seen at bedside this a.m. and appears to be resting comfortably. There is family at bedside. No acute issues overnight. No new pedal complaints. PHYSICAL EXAMINATION: GENERAL: Alert and oriented x3, in no apparent distress. VITAL SIGNS: Today, temperature 97.5, heart rate 113, respiratory rate 20, blood pressure 94/51, and pulse ox 95% on room air. PROBLEM FOCUSED LOWER EXTREMITY PHYSICAL EXAM: Vascular: Dorsalis pedis and posterior tibial pulses are faintly palpable. +3 pitting edema remains with greater than 2 cm of erythema, edema, and warmth along the left anterior tibia as well as the right lower extremity. NEUROLOGICAL: Sensation is diminished to light touch bilateral. MUSCULOSKELETAL: Deferred at this time. DERMATOLOGICAL: A superficial blister was noted to the anterior camara in the middle one-third of the anterior tibia. Periwound erythema, edema, and warmth are noted. No focal fluctuant fluid collection is noted. The edema is diffusely present across the entire lower extremity. LABORATORY DATA: White blood cell count is 19.7, hemoglobin 9, hematocrit 28.0, and platelet count is 283, neutrophil percentage is 61.6. Sodium 135, potassium 3.5, chloride 100, CO2 of 22, BUN 32, creatinine 3.89, glucose 147. ASSESSMENT: 1. Lower extremity cellulitis, bilateral, left greater than right. 2. Type 2 diabetes with peripheral neuropathy. 3. Acute kidney injury. 4. Sepsis. PLAN: The patient was seen and evaluated. Discussed condition and treatment options with the patient in detail. The blister on the anterior aspect of the patient's left lower extremity was debrided utilizing gauze and a wound culture was taken at this time. The wound was then dressed with Xeroform, 4x4s, and Kerlix without compression. The patient's leukocytosis continues to worsen. She remains hypotensive and tachycardic. Cardiology and Renal are following for hemodialysis. Most recent MRI reveals possible osteomyelitis of the talus, calcaneus, and distal tibia. This appears unlikely due to the fact that there is no inciting factor for a deep infection such as a wound ulceration or a puncture wound. There does not appear to be any focal fluctuant area that would require incision and drainage. I would recommend to return on IV antibiotics once renal function is stable. The Podiatry Service will continue to monitor as an inpatient. CANDIS Lopez/PRECIOUS /[id number]
[2018-11-29] MEDS: MIDODRINE 2.5 MG TAB PO SCH ×3 (12:23→17:38)
[2018-11-29] MEDS: NYSTATIN 15 GM POWDER UD BTL TOP SCH (12:27)
--- NOTE | 2018-11-29 12:38 | NUR ---
no tx pt on HD Addendum: 11/29/18 at 1238 by Nabeel Gil PTA Amended: Links added.
[2018-11-29] MEDS ORDERED: ALBUMIN 25% 12.5GM 50ML 50 ML IV ONE (13:39)
[2018-11-29] MEDS ORDERED: ALBUMIN 25% 12.5GM 0.25 GM/ML BTL IV PRN (13:45)
[2018-11-29] MEDS ORDERED: SODIUM CHLORIDE 0.9% 250ML 500 ML IV PRN (13:45)
[2018-11-29] MEDS ORDERED: MANNITOL 25% 12.5GM/50 ML VIAL IV PRN (13:45)
[2018-11-29] MEDS ORDERED: SODIUM CHLORIDE 0.9% 1000ML 2,000 ML IV PRN (13:45)
--- NOTE | 2018-11-29 17:43 | NUR ---
PT UP IN BED ,C/O NAUSEA MEDICATED,STILL REFUSES TO EAT,DIALYSIS FINISHED ONLY CLEAED BLOOD NO REMOVAL
--- NOTE | 2018-11-29 18:34 | Progress Note ---
DATE: 11/29/2018 Cardiology Progress Note SUBJECTIVE: No complaints. OBJECTIVE: VITAL SIGNS: Temperature 98.3, heart rate 107, respiratory rate 22, blood pressure 97/54, O2 saturation 98%, on telemetry sinus tachycardia. GENERAL: In no acute distress. Alert. NECK: No JVD. CHEST: Clear to auscultation. CARDIOVASCULAR: Regular rate and rhythm. Normal S1 and S2. No S3, no S4. Systolic ejection murmur. ABDOMEN: Soft and nontender. Bowel sounds positive. EXTREMITIES: With 2+ edema overall better and erythema to both lower extremities. CARDIOVASCULAR MEDICATIONS: Reviewed. Significant midodrine 10 mg t.i.d. and Eliquis 5 mg every 12 hours. STUDIES: Reviewed. INR 1.5, PT 19, and PTT 50. White blood cells 19.7, hemoglobin 9, and platelets 283. Sodium of 135, potassium 3.5, chloride 100, bicarbonate 22, BUN 32, creatinine 3.8, glucose 111, and calcium 8. Blood culture negative to 5 days. ASSESSMENT: 1. Penze-qe-ydzitcd diastolic heart failure, acute kidney injury requiring hemodialysis. 2. Common femoral vein deep venous thrombosis to the right, status post IVC filter placement, retrievable Marlene. 3. Hypertension. 4. Dyslipidemia. 5. Diabetes. 6. Morbid obesity. 7. Leg cellulitis. 8. Anemia, positive occult blood test with no gross active bleeding. RECOMMENDATIONS: 1. Undergoing intermittent hemodialysis, volume optimization deferred to Nephrology. 2. Continue Eliquis, can hold as needed for any procedures. 3. If tolerated over the following 2 to 4 weeks, consider retrieving IVC filter. This has been advised to the patient and family members and risks for leaving filter in place has been also discussed. The patient advised to follow up in office upon discharge to schedule further. 4. Continue midodrine. MD DAVID Graves/PRECIOUS /[id number]
--- NOTE | 2018-11-29 19:00 | NUR ---
Completed bedside rounds with morning nurse. Pt alert and oriented to name. Lying in bed HOB 30 degrees. Denies pain at this time. Family at bedside. Call watson within reach. Will continue to monitor.
[2018-11-29] MEDS: SENNA-S TABLET PO SCH (21:00)
[2018-11-30] VITALS (7 sets, daily range): BP systolic 83–97; BP diastolic 42–50
--- NOTE | 2018-11-30 00:26 | Progress Note ---
DATE: 11/29/2018 GI Progress Report SUBJECTIVE: The patient reports no abdominal pain. Appetite is poor. She has had two bowel movements today. Stools are brown. REVIEW OF SYSTEMS: GENERAL: No fever or chills, however, she admits to some weakness and fatigue. CVS: No chest pain or palpitation. RESPIRATORY: No cough or expectoration. MEDICATIONS: Reviewed as per APR. PHYSICAL EXAMINATION: VITAL SIGNS: Temperature 97.9, pulse 105, respiration 18, blood pressure ranging from 97/54 to 85/50, oxygen saturation 98% on 2 L of nasal cannula. GENERAL: Obese body habitus, not in any acute distress. HEENT: Oral mucosa is moist. ABDOMEN: Obese, protuberant belly, nondistended, nontender. No palpable mass or hernia. Positive bowel sounds. LABORATORY DATA: Hemoglobin remains stable went up from 8.8 to 9.0 today. WBC elevated to 19.72 from 16.51, hematocrit 28, and platelet count 283. Sodium 135, potassium 3.5, chloride 100, bicarb 22, BUN 32, creatinine 3.89, and glucose is 111. IMPRESSION: 1. Hemoglobin remains stable. The patient has already been started on anticoagulants. No gross GI bleeding. Upper endoscopy had revealed erosive gastritis and small crater duodenal ulcer. Gastric biopsies showed reactive gastropathy, no H. pylori infection. 2. Constipation has resolved with bowel regimen. PLAN: Watch for any gross GI bleeding. Continue PPI. No need to monitor hemoglobin. Continue daily standing bowel regimen. Jony Gomez MD SA/PRECIOUS /[id number]
[2018-11-30 06:16] LABS: BASOPHILS # (AUTO) 0.1 (0.0-0.1); BASOPHILS % 0.6 % (0.0-1.0); EOSINOPHILS # (AUTO) 0.7 (0.0-0.4); EOSINOPHILS % 4.1 % (0.0-6.0); HEMATOCRIT 24.3 % (34.2-44.1); LYMPHOCYTES % 23.2 % (18.0-39.1); MEAN CORPUSCULAR HEMOGLOBIN 28.2 pg (28-32); MEAN CORPUSCULAR HGB CONC 32.1 g/dL (31-35); MEAN CORPUSCULAR VOLUME 87.7 fL (81-99); MONOCYTES # (AUTO) 0.9 (0.2-0.8); MONOCYTES % 5.3 % (4.4-11.3); NEUTROPHILS # (AUTO) 9.1 (2.1-6.9); NEUTROPHILS % 52.8 % (38.7-80.0); PLATELET COUNT 272 x10e3/uL (140-360); RED BLOOD COUNT 2.77 x10e6/uL (3.6-5.1); RED CELL DISTRIBUTION WIDTH 17.1 % (11.7-14.4)
[2018-11-30 06:27] LABS: HEMOGLOBIN 7.8 g/dL (12.0-16.0)
--- NOTE | 2018-11-30 06:34 | NUR ---
Spoke with Dr. Blake regarding hgb decrease to 7.8. Ordered to monitor patient and recheck hgb at noon.
[2018-11-30 06:42] LABS: ANION GAP 15.5 mmol/L (8-16); CALCIUM 8.2 mg/dL (8.4-10.2); CREATININE, SERUM 2.66 mg/dL (0.57-1.11); POTASSIUM 3.5 mmol/L (3.5-5.1)
--- NOTE | 2018-11-30 06:52 | NUR ---
RECEIVED REPORT FROM OFF GOING NURSE. WALKING ROUNDS DONE. PATIENT IS RESTING IN BED. NO ACUTE DISTRESS NOTED AT THIS TIME. DENIES PAIN OR DISCOMFORT. CALL LIGHT WITHIN REACH. BED IN THE LOWEST POSITION.
[2018-11-30] MEDS: INSULIN LISPRO 100 UNIT/1 ML 3ML VIAL SQ SCH ×4 (07:30→20:57)
[2018-11-30] MEDS: POLYETHYLENE GLYCOL 3350 17 GM PACK PO SCH (09:00)
[2018-11-30] MEDS: MIDODRINE 2.5 MG TAB PO SCH ×3 (09:00→17:00)
[2018-11-30] MEDS: APIXABAN 5 MG TABLET PO SCH ×2 (09:45→17:00)
[2018-11-30] MEDS: PANTOPRAZOLE SOD 40 MG TABEC PO SCH (09:45)
[2018-11-30] MEDS: NYSTATIN 15 GM POWDER UD BTL TOP SCH (09:46)
--- NOTE | 2018-11-30 10:14 | Progress Note ---
DATE: 11/30/2018 SUBJECTIVE: This 68-year-old female with past medical history of type 2 diabetes, peripheral neuropathy, hypertension, acute renal injury, and DVT seen at bedside this a.m. and appears to be resting comfortably. No family is at bedside today. No acute issues overnight. No new pedal complaints. PHYSICAL EXAMINATION: GENERAL: Alert and oriented x3, in no apparent distress. VITAL SIGNS: Today, temperature 97.6, heart rate 105, respiratory rate 18, blood pressure 183/44, pulse ox is 91% on room air. PROBLEM FOCUSED LOWER EXTREMITY PHYSICAL EXAM: Vascular, dorsalis pedis and posterior tibial pulses are faintly palpable due to +3 pitting edema to bilateral lower extremities. Greater than 2 cm of erythema, edema, and warmth is noted along the left anterior tibial as well as the right anterior tibia. NEUROLOGICAL: Sensation is diminished to light touch bilateral. MUSCULOSKELETAL: Deferred at this time. Superficial blister to the anterior left camara appears to be nearly fully epithelialized at this time with mild serous drainage present. Periwound erythema, edema, and warmth are present. No focal fluid collection is present. Edema is noted diffusely across bilateral lower extremities. LABORATORY DATA: White blood cell count is 17.2, hemoglobin 7.8, hematocrit 24.3, and platelet count is 272. Sodium 138, potassium 3.5, chloride 102, CO2 24, BUN 19, and creatinine 2.66. ASSESSMENT: 1. Lower extremity cellulitis, bilateral with left greater than right superficial blister formation. 2. Type 2 diabetes peripheral neuropathy. 3. Acute kidney disease. 4. Sepsis. PLAN: The patient was seen and evaluated, discussed condition and treatment options with the patient in detail. The blister on the anterior aspect of the left foot was redressed with a Maxorb Ag followed by a Tegaderm. The superficial blister is nearly completely scabbed over. Wound cultures reveal no growth. No white blood cells that was taken yesterday. Still in progress. The patient remains hypotensive and tachycardic. Cardiology and Renal are following with hemodialysis. Again, MRI reveals possible osteomyelitis of the talus, calcaneus, and distal tibia, which is unlikely due to no open sores or puncture wound. Again, there does not appear to be any focal fluid fluctuant area that would require incision and drainage. Recommend IV antibiotics once renal function is stable. Podiatry Service will continue to monitor as inpatient. CANDIS Lopez /[id number]
--- NOTE | 2018-11-30 10:37 | NUR ---
SPOKE WITH DAUGHTER AND GAVE AVAILABLE FACILITIES IN NETWORK. NEED TO KNOW IF DIALYSIS IS PERMANENT OR TEMP BEFORE CAN MOVE FORWARD WITH [facility] [employer].
[2018-11-30] MEDS ORDERED: HEPARIN SOD (PORCINE) 1000 UNIT/ML SDV IV PRN (11:00)
--- NOTE | 2018-11-30 11:30 | NUR ---
SPOKE WITH ATTENDING DOCTOR AND DIALYSIS DOCTOR. PT HAS ACUTE DIALYSIS DUE TO INFECTION AND HER BLOOD PRESSURE REMAINS LOW. SHE IS NOT AN APPROPRIATE SNF REFERRAL AND UNABLE TO DO MUCH WITH PT. ASKED ALL IF LTAC WOULD BE MORE APPROPRIATE, DR SNOW WILL CONSIDER, CANCEL SNF ORDER AND WRITE LEVEL HE DEEMS PT NEEDS.
[2018-11-30] MEDS ORDERED: ONDANSETRON HCL INJ 2MG/ML 2ML 2 MG/ML VIAL IV PRN (11:45)
--- NOTE | 2018-11-30 12:24 | Progress Note ---
DATE: 11/30/2018 Cardiology Progress Note SUBJECTIVE: Denies any chest pain or shortness of breath. Denies any lightheadedness or other complaints today. Edema to lower extremities is improving. The patient is undergoing dialysis today. OBJECTIVE: VITAL SIGNS: Temperature 97.5, heart rate 105, sinus tachycardia on tele, respiratory rate 18, blood pressure 83/44, and O2 saturation 91%. GENERAL: In no acute distress, alert, active. NECK: No JVD. CHEST: Clear to auscultation. CARDIOVASCULAR: Regular rate and rhythm. Normal S1 and S2. ABDOMEN: Soft and nontender. Bowel sounds positive. EXTREMITIES: With 1+ edema. Erythema improved to lower extremities. CARDIOVASCULAR MEDICATIONS: Reviewed. 1. Eliquis 5 mg every 12 hours. 2. Midodrine 10 mg every 8 hours. STUDIES: Reviewed. White blood cells 17, hemoglobin 7.8, down from 9, monitoring closely. No gross bleeding reported by the patient. Platelets 272. Sodium 138, potassium 3.5, chloride 102, bicarbonate 24, BUN 19, creatinine 2.6, and glucose 98. ASSESSMENT AND PLAN: 1. A 68-year-old woman with history of deep vein thrombosis, on anticoagulation with Eliquis, status post recent inferior vena cava filter because of intermittent discontinuation of anticoagulation in the setting of positive occult blood tests, found to have gastritis and duodenal ulcer, nonbleeding. Discussed with GI. Resume anticoagulation, which has been so far tolerated. No gross bleeding. Hemoglobin and hematocrit changes, being monitored closely. The patient was also started on dialysis within this week, which may explain some of the changes in hemoglobin and hematocrit . 2. Acute on chronic diastolic heart failure, volume status improving and being optimized by Nephrology. 3. Hypotension. The patient on midodrine therapy, receiving albumin today. 4. Leg cellulitis, improving. Continue to optimize edema. 5. Coronary artery disease, invasive evaluation, currently deferred given other ongoing issues. 6. Inferior vena cava filter retrieval advised and planned if tolerating anticoagulation for the next 2-4 weeks. Srinivas Khalil MD AFTy/MODL /[id number]
--- NOTE | 2018-11-30 12:59 | NUR ---
Spoke to daughter, Marilu on the phone about recent order for LTAC. Patient verbalizes understanding and gives consent and choice for clinicals to be sent to [facility]. Telephone consent witnessed by BRENDEN Samuels. Notified Yusef Eid who states she will be here in a few hours. Copy of choice given to patient. MOT initiated. Addendum: 11/30/18 at 1400 by Radha Morton CM mot stapled to packet
[2018-11-30] MEDS: DOXYCYCLINE 100MG/NS 100ML 100 ML IV SCH ×2 (13:00→20:57)
[2018-11-30 16:13] LABS: ANION GAP 16.4 mmol/L (8-16); CALCIUM 8.3 mg/dL (8.4-10.2); CREATININE, SERUM 1.4 mg/dL (0.57-1.11); POTASSIUM 3.4 mmol/L (3.5-5.1)
[2018-11-30] MEDS: SODIUM BICARBONATE 8.4% SYRING 75 ML in SODIUM CHLORIDE 0.45% 1,000 ML IV SCH (16:13)
--- NOTE | 2018-11-30 18:22 | NUR ---
NOTIFIED DR. SNOW OF REPEAT HGB BEING 7.8 AND NO CHANGE FROM AM LABS. NO NEW ORDERS RECEIVED.
--- NOTE | 2018-11-30 18:26 | NUR ---
PAGED DR. PASCUAL TO NOTIFY THAT PATIENT HAS NOT BEING ABLE TO GIVE US A URINE SAMPLE YET AND PATIENT IS REFUSING STRAIGHT CATH. WAITING POLISHER SAND BACK.
--- NOTE | 2018-11-30 18:31 | Progress Note ---
DATE: 11/30/2018 Nephrology Progress Note SUBJECTIVE: The patient is presently resting, while on hemodialysis. According to her attendant, she is still nauseated, but not short of breath, feels weak, and is not eating much. Today is her 3rd dialysis. OBJECTIVE: VITAL SIGNS: Blood pressure still remains on low side, requiring IV albumin to dialyze her. DIALYSIS ORDERS: Blood flow 300 out of temporary hemodialysis catheter, 3K, 2.5 calcium bath, dialysate flow 600 mL/min, net ultrafiltration negative. NECK: Without JVP. CHEST: Symmetrical excursion bilaterally. CARDIOVASCULAR: Normal S1 and S2. ABDOMEN: Nondistended, but very obese. EXTREMITIES: Both lower legs have chronic inflammation and some nonpitting edema. NEUROLOGIC: The patient is sleepy, but arousable. MEDICATIONS: Reviewed in APR. LABORATORY DATA: Today, her hemoglobin is 7.8, white count 17, and normal platelet count. Serum chemistry shows sodium 138, potassium 3.5, chloride 102, bicarbonate 24, creatinine 2.6 after two hemodialyses, BUN 7, glucose 97, and total calcium 8.2. IMPRESSION: 1. Acute kidney injury, likely secondary to hypotension and sepsis. Started hemodialysis after developing uremic symptoms. Today is her 3rd dialysis in an incremental fashion. 2. We will hold dialysis over the weekend and recheck labs on Monday and Monday. 3. Decrease IV fluid rates since her urine output has dropped since initiating dialysis. 4. Continued hypotension, believe to secondary to diastolic congestive heart failure and low level sepsis. She is on antibiotics per primary physician. 5. Anemia, multifactorial. Transfuse for hemoglobin less than 7 or otherwise per primary physician. Richard Cook MD [facility]/MODL /[id number]
--- NOTE | 2018-11-30 18:32 | NUR ---
Dr. Knight, called back stating that the order for urine was not urgent, ok to wait until patient is able to give us sample but can straight cath if patient allows us.
--- NOTE | 2018-11-30 19:35 | NUR ---
Report given to oncoming nurse. Walking rounds done. Patient is resting in bed. No acute distress noted. Family at bedside. Call light within reach. Bed in the lowest position.
[2018-11-30] MEDS: SENNA-S TABLET PO SCH ×2 (20:57→21:00)
[2018-11-30] MEDS: ACETAMINOPHEN 325 MG TAB PO PRN (20:58)
--- NOTE | 2018-11-30 21:11 | Progress Note ---
DATE: 11/30/2018 SUBJECTIVE: The patient reports no abdominal pain. Tolerating oral diet. Appetite remains poor. Has had a one BM today, stool soft brown. REVIEW OF SYSTEMS: GENERAL: Admits to some weakness and fatigue. CVS: No chest pain or palpitations. RESPIRATORY: No cough or expectoration. MEDICATIONS: Reviewed as per MAR. She is on apixaban. Antibiotics are discontinued. PHYSICAL EXAMINATION: VITAL SIGNS: Temperature 98.5, pulse 116, respiration 18, blood pressure 85/42, and oxygen saturation 95% on room air. GENERAL: Not in any acute distress. Obese body habitus. HEENT: Oral mucosa is moist. Anicteric sclerae. ABDOMEN: Soft and protuberant. Belly obese. Nontender. No palpable mass or hernia. Positive bowel sounds. LABORATORY DATA: Hemoglobin 7.8 from 9.0. Repeat hemoglobin today again was noted 7.8. IMPRESSION: 1. Hemoglobin has dropped that too after dialysis. This is not due to any gastrointestinal bleeding. This is due to fluid shift during dialysis. I recommend not to monitor hemoglobin every day. 2. Constipation, resolved. 3. The patient is on apixaban for deep venous thrombosis, no gross gastrointestinal bleeding. She has small crater duodenal ulcer and erosive gastritis. She is not on PPI daily. I do not understand the reason of discontinuing pantoprazole. The patient has an erosive gastritis and duodenal ulcer, and she is also anticoagulants. Therefore, she is at risk of gastrointestinal bleeding. From my GI standpoint. She needs to be on PPI for gastrointestinal prophylaxis. Jony Gomez MD [facility]/PRECIOUS /[id number]
[2018-12-01] VITALS (12 sets, daily range): BP systolic 86–164; BP diastolic 38–73
--- NOTE | 2018-12-01 06:00 | NUR ---
PT UNABLE TO GIVE URINE SAMPLE.PT STATES THAT SHE HAS THE URGE TO VOID BUT SHE IS NOT ABLE TO,PT'S DAUGHTER AT BEDSIDE.STRAIGHT CATH DONE ORDERED,500ML OF DARK MUNIR URINE RECEIVED.COLLECTED URINE SAMPLE AND SENT TO LAB.
--- NOTE | 2018-12-01 06:38 | NUR ---
CALLED DR RIOJAS ANSWERING SERVICE SPOKE WITH HA.PAGED DR RIOJAS AT THIS TIME.
[2018-12-01 06:45] LABS: BASOPHILS # (AUTO) 0.2 (0.0-0.1); BASOPHILS % 0.9 % (0.0-1.0); EOSINOPHILS # (AUTO) 0.8 (0.0-0.4); EOSINOPHILS % 4.8 % (0.0-6.0); HEMATOCRIT 28.2 % (34.2-44.1); HEMOGLOBIN 8.4 g/dL (12.0-16.0); LYMPHOCYTES # (AUTO) 4.3 (1.0-3.2); LYMPHOCYTES % 25.3 % (18.0-39.1); MEAN CORPUSCULAR HEMOGLOBIN 27.8 pg (28-32); MEAN CORPUSCULAR HGB CONC 29.8 g/dL (31-35); MEAN CORPUSCULAR VOLUME 93.4 fL (81-99); MONOCYTES # (AUTO) 0.8 (0.2-0.8); MONOCYTES % 4.6 % (4.4-11.3); NEUTROPHILS # (AUTO) 8.3 (2.1-6.9); NEUTROPHILS % 49.4 % (38.7-80.0); PLATELET COUNT 224 x10e3/uL (140-360); RED BLOOD COUNT 3.02 x10e6/uL (3.6-5.1); RED CELL DISTRIBUTION WIDTH 17.5 % (11.7-14.4)
--- NOTE | 2018-12-01 06:50 | NUR ---
RECEIVED REPORT FROM OFF GOING NURSE. WALKING ROUNDS DONE. PATIENT IS RESTING IN BED. NO ACUTE DISTRESS NOTED AT THIS TIME. DENIES PAIN OR DISCOMFORT. DAUGHTER AT BEDSIDE. CALL LIGHT WITHIN REACH. BED IN THE LOWEST POSITION.
--- NOTE | 2018-12-01 06:58 | NUR ---
DR RIOJAS CALLED BACK NOTIFIED ABOUT PT FEELING THE URGE TO VOID BUT UNABLE TO,AND STRAIGHT CATH DONE COLLECTED 500 ML DARK MUNIR COLORED URINE IN THE AMOUNT OF 500 ML.N/O RECEIVED AND ENTERED.REPORT GIVEN TO ONCOMING NURSE.WALKING ROUNDS MADE.PT RESTING IN BED WITH NO S/S OF DISTRESS.
--- NOTE | 2018-12-01 07:04 | NUR ---
REPORT GIVEN TO ONCOMING NURSE,WALKING ROUNDS MADE.PT RESTING IN BED WITH NO S/S OF DISTRESS.
[2018-12-01 07:05] LABS: ANION GAP 16.9 mmol/L (8-16); CALCIUM 8.8 mg/dL (8.4-10.2); CREATININE, SERUM 1.74 mg/dL (0.57-1.11); POTASSIUM 3.9 mmol/L (3.5-5.1)
[2018-12-01 07:25] LABS: SODIUM,URINE 27 mmol/L
[2018-12-01 07:27] LABS: CLARITY,URINE CLOUDY (CLEAR); COLOR,URINE BROWN (YELLOW)
[2018-12-01 07:28] LABS: BILIRUBIN,URINE NEGATIVE (NEGATIVE); KETONES,URINE NEGATIVE (NEGATIVE); NITRITE,URINE NEGATIVE (NEGATIVE); PROTEIN,URINE DIPSTICK 3+ (NEGATIVE); URINE UROBILINOGEN 0.2 mg/dL (0.2 - 1)
[2018-12-01 07:29] LABS: LEUKOCYTE ESTERASE ,URINE MODERATE (NEGATIVE)
[2018-12-01] MEDS: INSULIN LISPRO 100 UNIT/1 ML 3ML VIAL SQ SCH ×4 (07:30→20:26)
[2018-12-01 07:44] LABS: BACTERIA,URINE FEW /HPF; EPITHELIAL CELLS,URINE FEW /LPF; MUCUS,URINE FEW (RARE); RBC,URINE 21-50 /HPF (0-5); WBC,URINE (MAN) 21-50 /HPF (0-5); YEAST,URINE MODERATE
[2018-12-01] MEDS: PANTOPRAZOLE SOD 40 MG TABEC PO SCH (08:00)
[2018-12-01] MEDS: MIDODRINE 2.5 MG TAB PO SCH (08:00)
[2018-12-01] MEDS: DOXYCYCLINE 100MG/NS 100ML 100 ML IV SCH ×2 (08:15→21:04)
[2018-12-01] MEDS: POLYETHYLENE GLYCOL 3350 17 GM PACK PO SCH (08:15)
[2018-12-01] MEDS: NYSTATIN 15 GM POWDER UD BTL TOP SCH (08:15)
[2018-12-01] MEDS: APIXABAN 5 MG TABLET PO SCH ×2 (08:51→16:39)
[2018-12-01 09:02] LABS: BAND NEUTROPHILS % (MANUAL) 2 %; EOSINOPHILS % (MANUAL) 4 % (0-7); LYMPHOCYTES % (MANUAL) 19 % (19-48); METAMYELOCYTES % (MANUAL) 3 % (0-0); MONOCYTES % (MANUAL) 6 % (3.4-9.0); NEUTROPHILS % (MANUAL) 66 % (40-74)
[2018-12-01 09:03] LABS: PLATELET ESTIMATE ADEQUATE; PLATELET MORPHOLOGY COMMENT NORMAL; RBC MORPHOLOGY COMMENT NORMAL
--- NOTE | 2018-12-01 09:26 | NUR ---
NOTIFIED DR. SNOW OF SIRS ALERT ON SEPSIS SCREENING, NO NEW ORDERS AT THIS TIME.
--- NOTE | 2018-12-01 09:45 | NUR ---
NARVAEZ CATHETER INSERTED AT THIS TIME ORDERED. 30CC OF BROWN URINE NOTED ON NARVAEZ BAG.
--- NOTE | 2018-12-01 09:49 | Progress Note ---
DATE: 12/01/2018 SUBJECTIVE: This is a 68-year-old female with past medical history of type 2 diabetes, peripheral neuropathy, hypertension, acute renal injury, and DVT, seen at bedside this a.m. Appears to be resting comfortably. Family is at bedside. No acute issues overnight. No new pedal complaints. PHYSICAL EXAMINATION: GENERAL: Alert ordered x3. No apparent distress. VITAL SIGNS: Today, temperature 97.9, heart rate 104, respiratory rate 18, blood pressure 109/54, and pulse ox 92% on room air. PROBLEM FOCUSED LOWER EXTREMITY PHYSICAL EXAM: Vascular, dorsalis pedis and posterior tibial pulses are faintly palpable. Edema is like down to +2 pitting to bilateral lower extremities. Erythema appears to be improved slightly as well, so it remains greater than 2 cm from the anterior blister site. NEUROLOGICAL: Sensation is diminished to light touch bilateral. MUSCULOSKELETAL: Deferred at this time. DERMATOLOGICAL: Superficial blisters noted to the anterior camara and is nearly fully epithelialized at this time with no drainage. Periwound erythema, edema and warmth are present, however, improved since previous visit. LABORATORY DATA: White blood cell count is 16.7, hemoglobin 8.4, hematocrit 28.2, and platelet count 224. Sodium 140, potassium 3.9, chloride 103, BUN 10, and creatinine 1.74. Hep B antigen negative. ASSESSMENT: 1. Left lower extremity cellulitis, bilateral, left greater than right, superficial blister formation, nearly fully healed. 2. Type 2 diabetes, peripheral neuropathy. 3. Acute kidney injury. 4. Sepsis. PLAN: The patient was seen and evaluated. Discussed condition and treatment options with the patient in detail. The blister on the anterior aspect of the left ankle was redressed with Maxorb and Tegaderm. It is nearly fully epithelialized. Wound cultures revealed no growth after 2 days, but no white blood cells. The patient remains hypotensive and tachycardic. However, does appear to be improving. Cardiology and Renal following with hemodialysis. I do not recommend any surgical intervention at this time, recommend continued antibiotics per Infectious Disease. The Podiatry Service will continue to monitor as an inpatient. CANDIS Lopez/MODL /[id number]
[2018-12-01] MEDS: MIDODRINE HCL 5 MG TABLET PO SCH ×2 (11:57→16:04)
[2018-12-01 14:36] LABS: BILIRUBIN,URINE MODERATE (NEGATIVE); CLARITY,URINE SL CLOUDY (CLEAR); COLOR,URINE YELLOW (YELLOW); KETONES,URINE 1+ (NEGATIVE); LEUKOCYTE ESTERASE ,URINE LARGE (NEGATIVE); NITRITE,URINE NEGATIVE (NEGATIVE); PROTEIN,URINE DIPSTICK 2+ (NEGATIVE); URINE UROBILINOGEN 1 mg/dL (0.2 - 1)
[2018-12-01 14:41] LABS: BACTERIA,URINE RARE /HPF; EPITHELIAL CELLS,URINE FEW /LPF
[2018-12-01] MEDS: BUPROPION HCL 100 MG TAB PO SCH (16:39)
[2018-12-01] MEDS: SODIUM BICARBONATE 8.4% SYRING 75 ML in SODIUM CHLORIDE 0.45% 1,000 ML IV SCH (17:00)
--- NOTE | 2018-12-01 19:27 | NUR ---
REPORT GIVEN TO ONCOMING NURSE. PATIENT IS RESTING IN BED. NO ACUTE DISTRESS NOTED. GRANDDAUGHTER AT BEDSIDE. CALL LIGHT WITHIN REACH. BED IN THE LOWEST POSITION.
[2018-12-01] MEDS: SENNA-S TABLET PO SCH (21:04)
--- NOTE | 2018-12-01 21:11 | Progress Note ---
DATE: 12/01/2018 Cardiology Progress Note SUBJECTIVE: No complaints today. Denies chest pain or shortness of breath. Last dialysis yesterday. OBJECTIVE: VITAL SIGNS: Temperature 99.4, heart rate 111, blood pressure 90/52, respiratory rate 18, and O2 saturation 96%. BMI 39. GENERAL: No acute distress. Alert. NECK: No JVD. CHEST: Clear to auscultation. CARDIOVASCULAR: Regular rate and rhythm. Normal S1 and S2. Systolic ejection murmur. ABDOMEN: Soft and nontender. Bowel sounds positive. Morbidly obese. EXTREMITIES: With edema 1+. Erythema to lower extremities, improving. Catheter noted at dialysis. CARDIOVASCULAR MEDICATIONS: Reviewed. 1. Eliquis 5 mg every 12 hours. 2. Protonix 40 mg q.h.s. 3. Midodrine 10 mg t.i.d. STUDIES: Reviewed. Significant for bicarbonate 24 and potassium 3.9. Creatinine 1.7. White blood cells 16, hemoglobin 8.4, and platelets 224. INR 1.5. AST 20 and ALT 20. ASSESSMENT: 1. [id number] diastolic heart failure. 2. Acute kidney injury requiring dialysis. 3. Deep venous thrombosis, on anticoagulation, status post IVC filter. 4. Duodenal ulcer, now bleeding, on PPI. 5. Anemia, stable. 6. Diabetes. 7. Hypertension. 8. Morbid obesity. RECOMMENDATIONS: 1. Continue current cardiovascular medications. Overall, blood pressure is noted to be better today. Metabolic acidosis also improves. The patient now with Mckee in place with some urine being produced and had retention. 2. Continue current cardiovascular medications. Overall, guarded prognosis. If tolerated anticoagulation over the following couple weeks without any recurrent bleeding, can consider retrieving IVC filter at that time. This can be performed as outpatient and the patient provided with outpatient contact information for followup and an importance of IVC filter retrieval has been discussed on several occasions with the patient and family. MD DAVID Graves/PRECIOUS /[id number]
[2018-12-02 03:45] VITALS: BP 94/51
--- NOTE | 2018-12-02 06:57 | NUR ---
REPORT GIVEN TO ONCOMING NURSE,WALKING ROUNDS MADE.PT RESTING IN BED WITH NO S/S OF DISTRESS
[2018-12-02 07:00] LABS: ANION GAP 15.5 mmol/L (8-16); CALCIUM 8.7 mg/dL (8.4-10.2); CREATININE, SERUM 1.89 mg/dL (0.57-1.11); POTASSIUM 3.5 mmol/L (3.5-5.1)
[2018-12-02] MEDS: PANTOPRAZOLE SOD 40 MG TABEC PO SCH (07:12)
[2018-12-02] MEDS: INSULIN LISPRO 100 UNIT/1 ML 3ML VIAL SQ SCH ×4 (07:30→21:00)
[2018-12-02 07:37] VITALS: BP 100/41
[2018-12-02] MEDS: APIXABAN 5 MG TABLET PO SCH ×2 (07:58→17:01)
[2018-12-02] MEDS: MIDODRINE HCL 5 MG TABLET PO SCH ×3 (07:58→16:29)
[2018-12-02] MEDS: NYSTATIN 15 GM POWDER UD BTL TOP SCH (07:59)
[2018-12-02] MEDS: POLYETHYLENE GLYCOL 3350 17 GM PACK PO SCH (07:59)
[2018-12-02] MEDS: BUPROPION HCL 100 MG TAB PO SCH ×2 (09:03→17:01)
[2018-12-02] MEDS: DOXYCYCLINE 100MG/NS 100ML 100 ML IV SCH ×2 (09:03→21:51)
[2018-12-02 09:45] VITALS: BP 100/51
[2018-12-02 11:27] VITALS: BP 89/43
[2018-12-02] MEDS: HYDROCORTISONE SOD SUCCINATE 100 MG VIAL IV SCH ×2 (14:44→21:49)
[2018-12-02] MEDS: SODIUM BICARBONATE 8.4% SYRING 75 ML in SODIUM CHLORIDE 0.45% 1,000 ML IV SCH (14:47)
--- NOTE | 2018-12-02 15:56 | Progress Note ---
DATE: 12/02/2018 Renal Progress Note SUBJECTIVE: Followed for acute kidney injury. The patient is now dialysis dependent. The patient's kidney function is still not improving off dialysis. Creatinine is still rising. The patient is oliguric. The patient remains on the hypotensive side. No current urgent need for dialysis today. OBJECTIVE: VITAL SIGNS: As follows last blood pressure is 89/43. The patient remains slightly on the tachycardic side. LUNGS: Minimal rales at bases. CARDIOVASCULAR: S1 and S2. ABDOMEN: Soft. Positive bowel sounds. EXTREMITIES: 1+ edema. LABORATORY DATA: UA shows 11-20 WBCs, 11-20 RBCs. Urine eosinophils negative. Chemistries; sodium 140, potassium 3.5, chloride 102, bicarb 26, BUN is 11, creatinine is 1.9. IMPRESSION AND PLAN: 1. Acute kidney injury. Remained in sustained acute tubular necrosis state; however, there is a concern with no obvious explanation for the acute kidney injury, whether this is acute tubular necrosis versus acute interstitial nephritis. Would consider kidney biopsy today if no further improvement in the patient's kidney function. The patient continues to have proteinuria as well as leukocytes in the urine as well as RBCs in the urine. May be having interstitial nephritis as well. 2. Hypotension. We will increase midodrine and check a serum cortisol level and we will also add IV hydrocortisone to her regimen since the blood pressure is still staying low. 3. Anemia of chronic disease, stable. 4. Proteinuria was subnephrotic before. We will recheck urine protein to creatinine ratio and make further recommendations. Thank you once again. Case discussed with Dr. Blake. Ezra Knight MD [facility]/MODL /[id number]
[2018-12-02 16:10] VITALS: BP 103/44
[2018-12-02 18:37] LABS: CREATININE,URINE RANDOM 160.17 mg/dL (47-110); TOTAL PROTEIN, URINE 176.7 mg/dL (1-14)
--- NOTE | 2018-12-02 19:22 | Progress Note ---
DATE: 12/02/2018 Cardiology Progress Note SUBJECTIVE: No complaints. OBJECTIVE: VITAL SIGNS: Temperature 99.8, heart rate 113, respiratory rate 18, blood pressure 89/43 up to 100/41, O2 sat 96% on nasal cannula. GENERAL: In no acute distress, alert. NECK: No JVD. CHEST: Clear to auscultation. CARDIOVASCULAR: Regular rate and rhythm. Normal S1, S2. Systolic ejection murmur 1/6. No S3, no S4. ABDOMEN: Soft, nontender, nondistended. Bowel sounds positive. EXTREMITIES: With 1+ edema. SKIN: With erythema to lower extremities. Overall, improved. CARDIOVASCULAR MEDICATIONS: Reviewed. Eliquis 5 mg b.i.d., initiating hydrocortisone 50 mg every 8 hours today, albumin 25 mg p.r.n., sodium bicarbonate IV. STUDIES: Reviewed. White blood cells 16.7, hemoglobin 8.4, platelets 224. INR 1.5. Sodium 140, potassium 3.5, chloride 102, bicarbonate 26, BUN 11, creatinine 1.89, glucose 94, calcium 8.7, albumin low at 1.4. Blood cultures negative x5 days. On telemetry, sinus tachycardia. ASSESSMENT: 1. A 68-year-old woman with acute on chronic diastolic heart failure, acute kidney injury requiring intermittent dialysis. Deep vein thrombosis on anticoagulation and status post IVC filter for temporary discontinuation of anticoagulation, now back on track with anticoagulation. 2. Duodenal ulcer, not bleeding actively at the time of EGD on PPI. 3. Stable anemia. 4. Diabetes mellitus. 5. Hypertension. 6. Morbid obesity. 7. Fatty liver. RECOMMENDATIONS: 1. Continue current cardiovascular medication. 2. Consider assessment for adrenal insufficiency. 3. Trial of steroids seems reasonable at this point. Blood cultures have been negative. ID on the case. 4. Coordinating care with Nephrology and primary service. 5. IVC filter retrieval advised if possibility for discontinuation of anticoagulation, particularly for renal biopsy or any other invasive procedures. We will defer filter retrieval at a later date after procedure is completed. Srinivas Khalil MD [facility]/MODL /[id number]
--- NOTE | 2018-12-02 19:40 | NUR ---
REPORT GIVEN TO ONCOMING NURSE. WALKING ROUNDS DONE. PATIENT IS RESTING IN BED. NO ACUTE DISTRESS NOTED. CALL LIGHT WITHIN REACH. BED IN THE LOWEST POSITION.
[2018-12-02 21:00] VITALS: BP 90/49
[2018-12-02] MEDS: SENNA-S TABLET PO SCH (21:00)
[2018-12-03] VITALS (10 sets, daily range): BP systolic 88–127; BP diastolic 45–68
[2018-12-03] MEDS: ACETAMINOPHEN 325 MG TAB PO PRN ×2 (05:37→18:21)
[2018-12-03] MEDS: HYDROCORTISONE SOD SUCCINATE 100 MG VIAL IV SCH ×3 (05:44→22:00)
[2018-12-03] MEDS: SODIUM BICARBONATE 8.4% SYRING 75 ML in SODIUM CHLORIDE 0.45% 1,000 ML IV SCH (06:24)
--- NOTE | 2018-12-03 07:15 | NUR ---
REPORT GIVEN TO ONCOMING NURSE,WALKING ROUNDS MADE.PT RESTING IN BED WITH NO S/S OF DISTRESS.
[2018-12-03 07:31] LABS: BASOPHILS % 0.2 % (0.0-1.0); LYMPHOCYTES # (AUTO) 2.1 (1.0-3.2); LYMPHOCYTES % 12.8 % (18.0-39.1); MEAN CORPUSCULAR HEMOGLOBIN 28.3 pg (28-32); MEAN CORPUSCULAR HGB CONC 30.3 g/dL (31-35); MEAN CORPUSCULAR VOLUME 93.6 fL (81-99); MONOCYTES # (AUTO) 0.4 (0.2-0.8); MONOCYTES % 2.6 % (4.4-11.3); NEUTROPHILS # (AUTO) 11.7 (2.1-6.9); NEUTROPHILS % 70.8 % (38.7-80.0); PLATELET COUNT 179 x10e3/uL (140-360); RED BLOOD COUNT 2.33 x10e6/uL (3.6-5.1)
[2018-12-03 07:45] LABS: HEMATOCRIT 21.8 % (34.2-44.1); HEMOGLOBIN 6.6 g/dL (12.0-16.0)
--- NOTE | 2018-12-03 08:00 | NUR ---
Spoke with Dr. Cook this am to report lab results. Received orders for pt to have dialysis and to transfuse 2 units of PRBC with dialysis. Pt denies any pain at this time. Right IJ trialysis in place and patent, right upper arm midline in place and patent.
[2018-12-03 08:07] LABS: ANION GAP 22.9 mmol/L (8-16); CALCIUM 8.3 mg/dL (8.4-10.2); CREATININE, SERUM 2.15 mg/dL (0.57-1.11); MAGNESIUM 1.4 MG/DL (1.3-2.1); PHOSPHORUS 3.6 MG/DL (2.3-4.7); POTASSIUM 3.9 mmol/L (3.5-5.1)
[2018-12-03] MEDS: APIXABAN 5 MG TABLET PO SCH (09:00)
[2018-12-03] MEDS ORDERED: SODIUM CHLORIDE 0.9% 250ML 250 ML IV ONE (09:00)
[2018-12-03] MEDS: PANTOPRAZOLE SOD 40 MG TABEC PO SCH (09:29)
[2018-12-03] MEDS: DOXYCYCLINE 100MG/NS 100ML 100 ML IV SCH ×2 (09:30→21:00)
[2018-12-03] MEDS: MIDODRINE HCL 5 MG TABLET PO SCH ×3 (09:30→17:57)
[2018-12-03] MEDS: NYSTATIN 15 GM POWDER UD BTL TOP SCH (09:31)
[2018-12-03] MEDS: INSULIN LISPRO 100 UNIT/1 ML 3ML VIAL SQ SCH ×4 (09:31→21:00)
[2018-12-03] MEDS: BUPROPION HCL 100 MG TAB PO SCH ×2 (09:31→17:58)
[2018-12-03] MEDS: FLUCONAZOLE 100 MG TAB PO SCH (11:00)
[2018-12-03] MEDS ORDERED: MIDODRINE 2.5 MG TAB PO SCH (12:00)
[2018-12-03] MEDS ORDERED: MAGNESIUM SULFATE 2GM/50ML 50 ML IV ONE (12:00)
--- NOTE | 2018-12-03 13:28 | Progress Note ---
DATE: 12/03/2018 Cardiology Progress Note SUBJECTIVE: Denies any chest pain or shortness of breath. OBJECTIVE: VITAL SIGNS: Temperature 98 degrees, heart rate 94, respiratory rate 17, blood pressure 108/68, and O2 saturation 95% on 3 L/minute nasal cannula. GENERAL: In no acute distress, alert. NECK: No JVD. CHEST: Clear to auscultation. CARDIOVASCULAR: Regular rate and rhythm. Normal S1, S2. ABDOMEN: Soft and nontender. Bowel sounds positive. EXTREMITIES: 1+ edema. Erythema noted to skin to lower extremities. CARDIOVASCULAR MEDICATION: Reviewed. Eliquis 5 mg b.i.d. to be placed on hold in preparation for possible renal biopsy. Midodrine 10 mg every 8 hours. STUDIES: White blood cells 16.5, hemoglobin dropped to 6.6 from 8.4, and platelets 179. Sodium 136, potassium 3.9, chloride 99, bicarbonate 18. BUN 14, creatinine 2.1 trending up. Glucose 159, calcium 8.3, magnesium 1.4, phosphorus 8.3. ASSESSMENT: 1. Acute anemia in the setting of recent noted nonbleeding duodenal ulcer and gastritis and in the setting of anticoagulation. 2. Deep venous thrombosis, status post IVC filter and temporary anticoagulation held. 3. Diabetes mellitus. 4. Hypertension. 5. Morbid obesity. 6. Acute renal failure. 7. Fatty liver. 8. Morbid obesity. RECOMMEND: 1. Discontinue Eliquis for now in preparation for possible renal biopsy and because of H and H drop. Consider transfusions as needed. 2. Consider assessment for adrenal insufficiency. 3. Resume midodrine 10 mg t.i.d. 4. Consider steroid trial. 5. Defer IVC filter retrieval for now, given discontinuation of anticoagulation at this point. 6. Overall prognosis remains guarded. MD DAVID Graves/MODL /[id number]
--- NOTE | 2018-12-03 14:56 | Diagnostic Imaging Report ---
EXAM: Renal Ultrasound INDICATION: ^elevated creatinine ^[id number] ^1412 ^Y COMPARISON: None TECHNIQUE: Transverse and longitudinal images of the kidneys and bladder were obtained. FINDINGS: Right Kidney: Length: 10.9 cm Appearance: Normal echogenicity. Collecting system: No hydronephrosis Stones: None Cyst/Mass: None Left Kidney: Length: 10.3 cm Appearance: Normal echogenicity. Collecting system: No hydronephrosis Stones: None Cyst/Mass: 1.1 x 0.9 x 1.0 cm upper pole anechoic simple cyst. Bladder: Mckee catheter in the decompressed bladder. IMPRESSION: No hydronephrosis. Small areas of bilateral perinephric tissue stranding and swimmer's of perinephric fluid, corresponding with identical findings on prior CT of 11/23/2018. Left kidney lower pole simple cyst. Signed by: Stacia Castelan MD on 12/03/2018 2:52 PM
--- NOTE | 2018-12-03 15:03 | Progress Note ---
DATE: 12/03/2018 Nephrology Progress Note SUBJECTIVE: The patient feels better symptomatically after 3 dialyses. Denies any ongoing nausea, and is eating some. Blood pressure is still on the low side. We will start it on IV hydrocortisone empirically over the weekend for hypotension. Cortisol level is pending. Blood cultures reportedly negative. White count is still elevated. OBJECTIVE: GENERAL: The patient is in no acute distress, but looks chromically sick. VITAL SIGNS: Blood pressure 114/54, pulse 97, temperature 98, and respirations 16 per minute. NECK: Supple without jugular venous distention. HEENT: Face looks puffy. CHEST: Auscultation reveals clear lung green bilaterally. I do not hear any wheezing or crepitations. CARDIOVASCULAR: Regular S1 and S2 without murmur, rub, or gallop. ABDOMEN: Soft, obese, nondistended. EXTREMITIES: Both lower legs have chronic inflammation and nonpitting edema. NEUROLOGIC: She is alert and appears oriented. LABORATORY DATA: Hemoglobin today 6.6., white count 16,000, normal platelet count. Creatinine today is 2.51, was 1.89 yesterday, and 1.74 the day prior without dialysis. Potassium 3.9, BUN 14, serum albumin 1.4, and magnesium low at 1.4. Urinalysis over the weekend showed 2+ protein, 11-20 red cells, and 11-20 white cells from a catheterized specimen. Random urine protein to creatinine ratio is at about 1 g/g. IMPRESSION: 1. Acute kidney injury, suspect acute tubular necrosis, although possibilities like allergic interstitial nephritis from one of the drugs exists. Uremic symptoms improved with dialysis. She has made about 40 mL of urine in the last 5 hours. We will dialyze her again today, and then try to rest her while looking for any renal recovery. I agree with renal ultrasound . We will hold Eliquis for the possibility of kidney biopsy later on in the week, although she is already on steroids and is questionable if she would tolerate cytotoxic immunosuppressant. 2. Hypotension, with low serum albumin. We will add IV albumin 25 g b.i.d. to help hemodynamics. 3. Anemia, secondary to inflammation and frequent blood draw. We will transfuse 2 units of packed cell during dialysis today. I will also order a 24-hour urine collection for better quantification of urine protein. The case was discussed in the details with her primary physician Dr. Blake with agreement on the above measures. MD JOCELYNN Ingram/PRECIOUS /[id number]
[2018-12-03] MEDS: ALBUMIN 25% 25GM 100ML 100 ML IV SCH ×2 (15:05→21:00)
[2018-12-03] MEDS ORDERED: ALBUMIN 25% 25GM 100ML 0.25 GM/ML BTL IV SCH (17:00)
--- NOTE | 2018-12-03 18:09 | NUR ---
Nutrition Screen Note RD Recommendation for Physician: - Recommend adding 1800 ADA to current diet 2/2 hx of DM and on insulin - Continue Glucerna Shake TID Plan of Care: RD following, monitoring for tolerance and adequacy Nutrition reason for involvement: LOS Primary Diagnose(s): abscess or cellulitis of heel, chronic R femoral DVT PMH: CHF, DM2, HTN, PVD Ht: 62 in Wt: 194 lb(questionable wt) BMI: 35.5 kg/m2 IBW: [address] Assessment: 12/03: Pt discussed during am rounds, HD initiated and has had a few tx with plan for HD tx today. Appetite improving now that HD has been initiated, 50% of meals today. No GI distress. Labs reviewed, Phos and K WNL- DM diet restriction rec's remain appropriate. Chart reviewed. Will monitor for diet education needs at f/u pending renal function and HD needs. 11/28: Pt sleeping at time of visit, daughter at bedside reports poor intake of meals and supplement the past few days and denies GI distress. Daughter with no questions or concerns at time of visit. Pt discussed during am rounds, pt pending initiation of HD 2/2 decline in renal function and worsening edema of legs. Labs and meds reviewed. Chart reviewed. Will monitor and continue to follow. (11/21) Pt seen today for LOS, discussed during am rounds. Pt reports fair appetite, states "I'm not a big eater", noted 25-75% meal intake. pt denies wt loss, reports UBW of 135#- questionable current wt in chart of 194# noted. Pt denies GI distress or difficulties chewing or swallowing. No questions or concerns at this time. Chart reviewed, per MD noted pt s/p EGD with duodenal ulcer noted. Labs and meds reviewed. Will monitor and continue to follow. Current Diet: Regular diet with Glucerna Shake TID Diet Tolerance: Tolerating PO Malnutrition Evaluation (11/21/18) The patient does not meet criteria for a specified degree of malnutrition at this time. Will re-evaluate at follow-up as appropriate. Diet Education Needs Assessment: Diet education not indicated. Nutrition Care Level: Low Signed: Lauren Jimenez RD, LD, [facility]
--- NOTE | 2018-12-03 19:00 | NUR ---
Completed rounds with morning nurse. Patient alert to name. Patient lying right side HOB 30 degrees in bed. Denies pain at this time. Family at bedside. Call watson within reach. Bed low and locked. Will continue to monitor.
[2018-12-03] MEDS: SENNA-S TABLET PO SCH (21:00)
[2018-12-04] VITALS (8 sets, daily range): BP systolic 89–131; BP diastolic 45–72
[2018-12-04] MEDS: HYDROCORTISONE SOD SUCCINATE 100 MG VIAL IV SCH ×3 (05:30→22:00)
[2018-12-04 06:28] LABS: BASOPHILS # (AUTO) 0.1 (0.0-0.1); BASOPHILS % 0.4 % (0.0-1.0); HEMATOCRIT 27.5 % (34.2-44.1); HEMOGLOBIN 8.8 g/dL (12.0-16.0); LYMPHOCYTES # (AUTO) 1.6 (1.0-3.2); LYMPHOCYTES % 9.2 % (18.0-39.1); MEAN CORPUSCULAR HEMOGLOBIN 27.9 pg (28-32); MEAN CORPUSCULAR VOLUME 87.3 fL (81-99); MONOCYTES # (AUTO) 0.7 (0.2-0.8); NEUTROPHILS # (AUTO) 13.3 (2.1-6.9); NEUTROPHILS % 76.9 % (38.7-80.0); PLATELET COUNT 184 x10e3/uL (140-360); RED BLOOD COUNT 3.15 x10e6/uL (3.6-5.1); RED CELL DISTRIBUTION WIDTH 17.4 % (11.7-14.4)
[2018-12-04 06:53] LABS: ANION GAP 27.6 mmol/L (8-16); CALCIUM 7.6 mg/dL (8.4-10.2); CREATININE, SERUM 1.61 mg/dL (0.57-1.11); POTASSIUM 3.6 mmol/L (3.5-5.1)
[2018-12-04] MEDS: IPRATROPIUM BROMIDE 0.02% 2.5 ML NEB NEB SCH ×4 (08:45→22:55)
[2018-12-04] MEDS: PANTOPRAZOLE SOD 40 MG TABEC PO SCH (10:12)
[2018-12-04] MEDS: SODIUM BICARBONATE 8.4% SYRING 75 ML in SODIUM CHLORIDE 0.45% 1,000 ML IV SCH (10:12)
[2018-12-04] MEDS: INSULIN LISPRO 100 UNIT/1 ML 3ML VIAL SQ SCH ×4 (10:13→21:00)
[2018-12-04] MEDS: ALBUMIN 25% 25GM 100ML 100 ML IV SCH ×2 (10:13→21:00)
[2018-12-04] MEDS: MIDODRINE HCL 5 MG TABLET PO SCH ×3 (10:13→16:47)
[2018-12-04] MEDS: BUPROPION HCL 100 MG TAB PO SCH ×2 (10:13→16:47)
[2018-12-04] MEDS: DOXYCYCLINE 100MG/NS 100ML 100 ML IV SCH ×2 (10:13→21:00)
[2018-12-04] MEDS: FLUCONAZOLE 100 MG TAB PO SCH (10:13)
--- NOTE | 2018-12-04 10:39 | Progress Note ---
DATE: 12/04/2018 SUBJECTIVE: This is a 68-year-old female with past medical history of type 2 diabetes, peripheral neuropathy, hypertension, acute renal injury, and DVT is seen at bedside this morning. She appears to be resting comfortably. There is family at bedside. No acute issues overnight. No new pedal complaints. PHYSICAL EXAMINATION: GENERAL: Alert and oriented x3, in no apparent distress. VITAL SIGNS: Today, temperature 97.7, heart rate 96, respiratory rate 18, blood pressure 110/55, and pulse ox 94% on room air. PROBLEM FOCUSED LOWER EXTREMITY PHYSICAL EXAM: Vascular, dorsalis pedis and posterior tibial pulses are faintly palpable. Edema is still noted to bilateral lower extremities, which is +2. The erythema continues to be slightly improved, but is greater than 2 cm on the anterior aspect of bilateral lower extremities. NEUROLOGICAL: Sensation is diminished to light touch bilateral. MUSCULOSKELETAL: Deferred at this time. DERMATOLOGICAL: Superficial blisters noted to the anterior camara, which is nearly fully epithelialized at this time. Periwound erythema and edema remain. LABORATORY DATA: White blood cell count is 7.3, hemoglobin 8.8, hematocrit 27.5, and platelet count 184. Sodium 141, potassium 3.6, chloride 99, CO2 18, BUN 11, and creatinine 1.61. ASSESSMENT: 1. Left lower extremity cellulitis, bilateral left greater than right superficial blister formation, nearly fully epithelialized at this time. 2. Type 2 diabetes, peripheral neuropathy. 3. Acute kidney injury. PLAN: The patient was seen and evaluated. Discussed condition and treatment options with the patient in detail. The blister on the anterior aspect of the left ankle was left open to the air at this point due to epithelialization scab formation. Wound culture continues to reveal no growth and no white blood cells. The patient's hypotension and tachycardia are improving. Cardiology and renal following with hemodialysis. Urine cultures are pending. Do not recommend any surgical intervention at this time. Continue antibiotics per Infectious Disease. The Podiatry Service will continue to monitor as inpatient. CANDIS Lopez/MODL /[id number]
--- NOTE | 2018-12-04 10:49 | Diagnostic Imaging Report ---
EXAMINATION: CHEST 2 VIEWS INDICATION: Shortness of breath COMPARISON: Chest radiograph of 11/23/2018 FINDINGS: LINES/TUBES:EKG leads overlie the chest. Right IJ central venous catheter terminates at the superior cavoatrial junction. LUNGS:The lung volumes are low. Patchy bibasilar opacities silhouette both hemidiaphragms right greater than left PLEURA:No pleural effusion or pneumothorax. MEDIASTINUM:The cardiomediastinal silhouette appears normal in size and shape. BONES/SOFT TISSUES:No acute osseous injury. ABDOMEN:No free air under the diaphragm. IMPRESSION: Low lung volumes. Patchy opacities at both lung bases right greater than left most likely represent subsegmental atelectasis. Signed by: Stacia Castelan MD on 12/04/2018 10:46 AM
--- NOTE | 2018-12-04 14:54 | Progress Note ---
DATE: 12/04/2018 Nephrology Progress Note SUBJECTIVE: The patient looks dramatically better today. More alert and almost smiling. Eating at least 30% of her food. Denies nausea. Chest x-ray this morning, suggestive of possible atelectasis versus pulmonary congestion. I am unable to see the film in the system, but discussed with Dr. Blake. Urine output about 200 mL since yesterday afternoon. Last dialyzed yesterday. OBJECTIVE: VITAL SIGNS: Blood pressure is much better on IV albumin, 131/72, pulse 106 per minute. She is afebrile. Respirations 18 per minute. NECK: Without JVP. CHEST: Auscultation reveals bilateral air entry. I do not hear any wheezing or crepitations, but her respiratory effort is somewhat limited. CARDIOVASCULAR: Shows S1, S2 without rub or gallop. ABDOMEN: Soft, obese, but not distended. EXTREMITIES: Chronic cellulitis and associated edema. NEUROLOGIC: She is alert and appears oriented. MEDICATIONS: Reviewed. LABORATORY DATA: Potassium is 3.6, sodium 141, bicarb 18, creatinine 1.6, BUN 32, total calcium 7.6. IMPRESSION: 1. Acute kidney injury, status post dialysis yesterday. We will monitor urine output today and hope for better renal perfusion with improved blood pressure. 2. Metabolic acidosis, secondary to above. We will add oral sodium bicarbonate t.i.d. 3. Fluid overload, we will discontinue IV fluid and observe. May use Lasix IV p.r.n., but in general avoid depleting her intravascular volume for the sake of renal perfusion. 4. A 24-hour urine protein in progress. Discussed with Dr. Blake and the patient's RN. Richard Cook MD [facility]/MODL /[id number]
--- NOTE | 2018-12-04 15:34 | NUR ---
Spoke to Dr. Blake about recent LTAC denial and possible snf. md awaiting results of nuc med scan. Possible MD [id number] to be done. Will follow with 12/06
[2018-12-04] MEDS: SODIUM BICARBONATE 650 MG TAB PO SCH ×2 (16:46→22:00)
--- NOTE | 2018-12-04 17:46 | Progress Note ---
DATE: 12/04/2018 CONSULTING PHYSICIANS: 1. Srinivas Khalil MD, with Cardiology. 2. Richard Cook MD, with Nephrology. 3. Sumit Barrientos DPM, with Podiatry. CHIEF COMPLAINT: Left lower extremity redness and pain, and generalized weakness. SUBJECTIVE: The patient is seen in bed with granddaughter and son at the bedside. She reports shortness of breath getting better, and is also able to eat some at lunch time. Still with poor appetite. Denies any chest pain, fever, chills, nausea, vomiting, or abdominal pain. PHYSICAL EXAMINATION: VITAL SIGNS: Temperature is 97.8, pulse is 92, respirations 18, blood pressure is 107/53, pulse ox is 94% on 2 L of O2. GENERAL: No acute distress. HEENT: Normocephalic and atraumatic. LUNGS: Decreased breath sounds with some wheezing in the lower lobes. CARDIOVASCULAR: Sinus tachycardia, regular rhythm. ABDOMEN: Soft and nontender. Obese. NEUROLOGIC: Alert, awake, and oriented x3. : Mckee in place for urinary retention. MUSCULOSKELETAL: Moves all extremities, edema 2+ noted bilaterally. SKIN: Redness and swelling noted in the bilateral lower extremities. LABORATORY DATA: WBC 17.3, hemoglobin is 8.8, hematocrit is 27.5, and platelet is 184. Sodium is 141, potassium is 3.6, CO2 18, creatinine is 1.61, estimated GFR is 32, and glucose is 159. IMPRESSION AND PLAN: 1. Sepsis present on admission due to cellulitis and osteomyelitis of the left foot. Continue doxycycline per ID. 2. Acute kidney failure. Nephrology has been consulted and dialysis has been initiated. 3. Hypotension. Continue midodrine. 4. Sinus tachycardia. No chest pain. We will continue to monitor. 5. Anemia of chronic disease. Transfuse 1 unit of PRBC with dialysis yesterday and today improved to 8.4. 6. Acute deep vein thrombosis status post IVC filter placement by Dr. Ndiaye. 7. Diabetes type 2. Continue sliding scale coverage as needed. 8. High cholesterol. 9. History of PAD. 10. Leukocytosis, WBC 17.3. Continue doxycycline per ID. 11. Debility. Continue working with PT. Dictated by GEORGE Chew Yiching Uche Blake MD MY/MODL /[id number] Seen and examined, updated granddaughter at the bedside in details. Agree with the findings and plan as documented by GEORGE Conti. RAÚLD
--- NOTE | 2018-12-04 19:00 | NUR ---
Patient being transferred to Nuclear medicine for Indium scan via stretcher. Family at bedside. No acute distress noted.
[2018-12-04 19:12] LABS: CREATININE,URINE RANDOM 120.05 mg/dL (47-110)
--- NOTE | 2018-12-04 20:06 | Progress Note ---
DATE: 12/04/2018 Cardiology Progress Note. SUBJECTIVE: Denies any chest pain or shortness of breath. Status post dialysis and transfusion of PRBC yesterday. OBJECTIVE: VITAL SIGNS: Temperature 97.7, heart rate 96, respiratory rate 18, blood pressure 110/55, and O2 saturation 94%. GENERAL: In no acute distress, alert. NECK: No JVD. CHEST: Clear to auscultation. CARDIOVASCULAR: Regular rate and rhythm. Normal S1, S2. No S3 or S4. ABDOMEN: Soft. Bowel sounds positive. EXTREMITIES: With 2+ edema. SKIN: With erythema to both lower extremities. Overall improving. CARDIOVASCULAR MEDICATIONS: Has been reviewed. Midodrine 10 mg t.i.d., hydrocortisone 50 mg every 8 hours. Anticoagulation currently remains on hold for possible renal biopsy soon. LABORATORY DATA: Studies reviewed significant for creatinine 1.6 status post dialysis yesterday, bicarbonate 18, potassium 3.6, sodium 141, chloride 99, and BUN 11 with glucose of 159. White blood cells 17, hemoglobin 8.8 up from 6.6 yesterday following transfusion. Platelets 184, AST 20, ALT 20, alkaline phosphatase 188, and INR 1.5. ASSESSMENT: 1. A 68-year-old woman presents with acute kidney injury requiring intermittent dialysis. 2. Acute on chronic diastolic heart failure. 3. Leg cellulitis. 4. DVT temporary anticoagulation. Currently on hold given issues with dropping H and H as well as with the planned procedure for renal biopsy. 5. Status post retrievable IVC filter placement. 6. Diabetes mellitus, hypertension, dyslipidemia. 7. Peripheral arterial disease. 8. Anemia requiring PRBC transfusion. RECOMMEND: 1. Continue current cardiovascular medications. Blood pressure seems slightly improved on Midodrine as well as hydrocortisone. Continue to monitor. 2. The patient has a history of recently diagnosed duodenal ulcer at the time of endoscopy was done, nonbleeding. However, has now drop in H and H. Monitor closely for signs of gross bleeding from GI tract or other sources. 3. Continue to hold anticoagulation in preparation for possible renal biopsy. Overall prognosis remains guarded. MD DAVID Graves/PRECIOUS /[id number]
[2018-12-04] MEDS: SENNA-S TABLET PO SCH (21:00)
--- NOTE | 2018-12-04 23:26 | Progress Note ---
DATE: 12/04/2018 GI Progress Report SUBJECTIVE: The patient has had drop in hemoglobin without any evidence of gross GI bleeding. Tolerating oral diet. Stool is soft brown. No abdominal pain. REVIEW OF SYSTEMS: GENERAL: Admits to some fatigue and weakness. CVS: No chest pain or palpitation. RESPIRATORY: No cough or expectoration. MEDICATIONS: Reviewed as per APR. She is getting oral pantoprazole 40 mg daily. Eliquis (anticoagulant) has been discontinued. Other medications as per APR. PHYSICAL EXAMINATION: VITAL SIGNS: Temperature 96.8, pulse 93, respirations 18, blood pressure 110/53, and oxygen saturation 95% on room air. GENERAL: Not in any acute distress. HEENT: Oral mucosa is moist. ABDOMEN: Obese, soft, nondistended, nontender. No mass or hernia. Positive bowel sounds. LABORATORY DATA: WBC of 17.30, up from 16.57; RBC 3.15; hemoglobin is up 8.8 from 6.6; hematocrit 27.5; and platelet count 184. Sodium 141, potassium 3.6, chloride 99, bicarb 18, BUN 11, creatinine 1.61, and glucose 159. IMPRESSION: 1. Leukocytosis, likely due to underlying cellulitis and osteomyelitis. The patient's white count is creeping up. She has had indium scan done today. 2. Drop in hemoglobin without any evidence of gross GI bleeding. The patient has a history of peptic ulcer disease, was noted to have a small duodenal bulb ulcer on upper endoscopy, performed on this admission. The patient is on PPI daily. 3. Deep venous thrombosis, status post IVC filter. The patient was also on Eliquis, which has been discontinued given the drop in hemoglobin, although the patient has not had any gross GI bleeding. 4. Acute kidney injury, cause is still unclear. The patient received dialysis yesterday. She also received 2 units of packed red blood cell. Hemoglobin has gone up to 8.4 from 6.6. PLAN: From GI standpoint, I again reiterated that anticoagulation can be resumed if clinically indicated. The patient just needs to be on PPI daily for duodenal ulcer. I do not suspect any GI bleeding at this time causing drop in hemoglobin. Continue the rest of the medical management as per primary team. Jony Gomez MD [facility]/PRECIOUS /[id number]
[2018-12-05] VITALS (8 sets, daily range): BP systolic 104–152; BP diastolic 53–64
--- NOTE | 2018-12-05 04:33 | NUR ---
Midline line dressing changed using aseptic technique. Old dressing removed and discarded. Site without redness, swelling. Patient denies discomfort at site. Secured with wingguard, followed by transparent sterile membrane.
[2018-12-05] MEDS: SODIUM BICARBONATE 650 MG TAB PO SCH ×4 (06:00→22:19)
[2018-12-05] MEDS: HYDROCORTISONE SOD SUCCINATE 100 MG VIAL IV SCH ×3 (06:00→22:19)
--- NOTE | 2018-12-05 07:36 | Diagnostic Imaging Report ---
Labeled WBC Study Reason for exam: Sepsis, fever, persistent leukocytosis Comparison: Chest radiograph 12/04/2018 Report: The patient's own white blood cells were labeled with In-111 oxine 0.6 mCi by a commercial radiopharmacy. Total body images in the anterior and posterior projections were obtained at 24 hours post administration of the labeled white blood cells. Diffusely increased tracer is seen in the right lung with focal increased tracer activity in the RUL. Otherwise, distribution of tracer activity is unremarkable throughout the body. IMPRESSION: Scan evidence of diffuse inflammatory process in the right lung with more focal inflammatory/infection process in the RUL. Signed by: Dr. Lottie Barbosa M.D. on 12/05/2018 7:33 AM
[2018-12-05] MEDS: IPRATROPIUM BROMIDE 0.02% 2.5 ML NEB NEB SCH ×3 (07:45→19:50)
[2018-12-05] MEDS: INSULIN LISPRO 100 UNIT/1 ML 3ML VIAL SQ SCH ×4 (08:50→22:26)
[2018-12-05] MEDS: PANTOPRAZOLE SOD 40 MG TABEC PO SCH (08:53)
[2018-12-05] MEDS: FLUCONAZOLE 100 MG TAB PO SCH (08:54)
[2018-12-05] MEDS: BUPROPION HCL 100 MG TAB PO SCH ×2 (08:54→16:00)
[2018-12-05] MEDS: DOXYCYCLINE 100MG/NS 100ML 100 ML IV SCH ×2 (08:54→23:15)
[2018-12-05] MEDS: MIDODRINE HCL 5 MG TABLET PO SCH ×3 (09:09→15:40)
[2018-12-05 09:43] LABS: ANION GAP 12.3 mmol/L (8-16); BLOOD UREA NITROGEN 10 mg/dL (7-26); BUN/CREATININE RATIO 21 (6-25); CALCIUM 9.1 mg/dL (8.4-10.2); CARBON DIOXIDE 25 mmol/L (22-29); CHLORIDE 102 mmol/L (98-107); CREATININE, SERUM 0.48 mg/dL (0.57-1.11); EST GLOMERULAR FILTRATION RATE > 60 ML/MIN (60-); GLUCOSE 93 mg/dL (74-118); POTASSIUM 3.3 mmol/L (3.5-5.1); SODIUM 136 mmol/L (136-145)
[2018-12-05] MEDS: ALBUMIN 25% 25GM 100ML 100 ML IV SCH ×2 (10:21→22:19)
--- NOTE | 2018-12-05 10:59 | Progress Note ---
DATE: 12/05/2018 SUBJECTIVE: A 68-year-old female with past medical history of type 2 diabetes, peripheral neuropathy, hypertension, acute renal injury, DVT, who is seen at bedside this morning. She again appears to be resting comfortably. Family is present at bedside. No acute issues overnight. No new pedal complaints at this time. Denies nausea, vomiting, fever, chills, chest pain, and relates improvement in shortness of breath. PHYSICAL EXAMINATION: GENERAL: Alert and oriented x3, in no apparent distress. VITAL SIGNS: Today, temperature 97.7, heart rate 104, respiratory rate 18, blood pressure 107/55, and pulse ox 90% on room air. PROBLEM FOCUSED LOWER EXTREMITY PHYSICAL EXAM: Vascular, dorsalis pedis and posterior tibial pulses are faintly palpable. Capillary refill time is less than 3 seconds to all digits. +2 pitting edema with erythema and edema still present, greater than 2 cm of bilateral lower extremities. NEUROLOGICAL: Sensation is diminished to light touch bilateral. MUSCULOSKELETAL: Deferred at this time. Superficial blister noted to the anterior camara of the left lower extremities, fully epithelialized at this time. Wound erythema and edema remained. LABORATORY DATA: White blood cell count today is 17.3, hemoglobin 8.8, hematocrit 27.5, and platelet count 184. Sodium 141, potassium 3.6, chloride 99, BUN 11, creatinine 1.6, glucose 205. IMAGING: White blood cell indium bone scan reveals diffuse increased tracer seen in the right lung with focal increased tracer activity in the right upper lobe. Otherwise, distribution of tracer activity is unremarkable throughout the body. ASSESSMENT: 1. Left lower extremity cellulitis, bilateral, left greater than right. Superficial blister formation, fully epithelialized at this time. 2. Type 2 diabetes, peripheral neuropathy. 3. Acute kidney injury. 4. Acute deep vein thrombosis. PLAN: The patient was seen and evaluated. Discussed condition and treatment options with the patient in detail. The blister on the anterior aspect of left ankle is fully epithelialized at this time and does not require further wound care. Wound culture reveals no growth and no white blood cells. The patient's hypertension and tachycardia do tend to be approving Cardiology. Renal following with hemodialysis. Urine cultures were positive for Ciera albicans and gram-positive rods. White blood cell labeled indium bone scan reveals no increase in uptake to the left lower extremity in the tibia, the talus, or the calcaneus where the previous MRI was concerned about osteomyelitis. My opinion is the patient does not have osteomyelitis in the left lower extremity due to no source of the infection. 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 Continue to recommend IV antibiotics per Infectious Disease and primary care team. Podiatry Service will continue to monitor as an inpatient. CANDIS Lopez/MODL /[id number]
[2018-12-05 11:22] LABS: BASOPHILS # (AUTO) 0.1 (0.0-0.1); BASOPHILS % 0.4 % (0.0-1.0); HEMATOCRIT 32.3 % (34.2-44.1); HEMOGLOBIN 9.9 g/dL (12.0-16.0); LYMPHOCYTES # (AUTO) 1.3 (1.0-3.2); LYMPHOCYTES % 8.7 % (18.0-39.1); MEAN CORPUSCULAR HEMOGLOBIN 27.7 pg (28-32); MEAN CORPUSCULAR HGB CONC 30.7 g/dL (31-35); MEAN CORPUSCULAR VOLUME 90.5 fL (81-99); MONOCYTES % 6.3 % (4.4-11.3); NEUTROPHILS # (AUTO) 11.7 (2.1-6.9); NEUTROPHILS % 76.9 % (38.7-80.0); PLATELET COUNT 174 x10e3/uL (140-360); RED BLOOD COUNT 3.57 x10e6/uL (3.6-5.1)
[2018-12-05 11:53] LABS: ANION GAP 28.3 mmol/L (8-16); CREATININE, SERUM 2.31 mg/dL (0.57-1.11); POTASSIUM 3.3 mmol/L (3.5-5.1)
--- NOTE | 2018-12-05 12:10 | Progress Note ---
DATE: 12/05/2018 Cardiology Progress Note SUBJECTIVE: No complaints. OBJECTIVE: VITAL SIGNS: Temperature 97.7, heart rate 99, blood pressure 107/55, respiratory rate 18, and O2 saturation 96%. GENERAL: In no acute distress. Alert. NECK: No JVD. CHEST: Clear to auscultation. CARDIOVASCULAR: Regular rate and rhythm. Normal S1 and S2. No S3 or S4. ABDOMEN: Soft and nontender. Bowel sounds positive. EXTREMITIES: Edema. SKIN: With erythema to lower extremities. CARDIOVASCULAR MEDICATIONS: Reviewed. 1. Eliquis continues to be on hold. 2. Hydrocortisone 50 mg every 8 hours. 3. Midodrine 10 mg t.i.d. 4. Sodium bicarbonate drip 1. STUDIES: Creatinine 1.6, bicarbonate 18, and potassium 3.6. White blood cells 17.3, hemoglobin 8.8, and platelets 184. ASSESSMENT AND PLAN: 1. A 68-year-old woman with labile blood pressure and hypotensive episodes, now improving with midodrine and hydrocortisone. 2. Acute renal failure requiring intermittent dialysis. 3. Deep vein thrombosis, status post retrievable inferior vena cava filter implant and with currently anticoagulation on hold in preparation for possible kidney biopsy as well as a result of drop in hemoglobin and hematocrit. 4. History of duodenal ulcer, nonbleeding at the time of esophagogastroduodenoscopy as well as gastritis. 5. Acute on chronic diastolic heart failure. 6. Hypertension. 7. Diabetes mellitus. 8. Peripheral arterial disease. 9. Anemia requiring packet red blood cell transfusions. 10. Metabolic acidosis. Recommend continue current cardiovascular medications. 11. Continue to hold anticoagulation in preparation for possible kidney biopsy. 12. Metabolic acidosis per Nephrology. Srinivas Khalil MD [facility]/MODL /[id number]
[2018-12-05] MEDS ORDERED: FUROSEMIDE INJ 10 MG/ML 4 ML VIAL IV ONE (12:15)
[2018-12-05] MEDS ORDERED: POTASSIUM CHLORIDE 20MEQ/15ML UDC PO ONE (12:45)
--- NOTE | 2018-12-05 13:09 | Progress Note ---
DATE: 12/05/2018 Nephrology Progress Note SUBJECTIVE: The patient has no active complaints. However, on deeper questioning, does seem to admit to being dyspneic at rest. OBJECTIVE: VITAL SIGNS: Blood pressure ranging from 107 to 120/56, pulse 95 per minute, and she is afebrile. HEENT: Face is less puffy. NECK: Without jugular venous distention. CHEST: Auscultation reveals poor inspiratory effort bilaterally. I do not hear any wheezing or crepitations. CARDIOVASCULAR: Shows normal S1 and S2 without rub or gallop. ABDOMEN: Soft and obese, but nondistended. EXTREMITIES: Unchanged chronic cellulitis and nonpitting edema. LABORATORY DATA: Chest x-ray from yesterday reviewed. Her creatinine is 0.48, which is down from 1.6 yesterday and looks unusually low. Potassium 3.6. We will repeat the BMP. Urine output in the last 24 hours has been 450 mL, which does seem more than she has had recently. IMPRESSION: 1. Acute kidney injury, most likely etiology still is ATN from hypotension and sepsis. Her 24-hour urine collection is less than a gram, which is less likely from a glomerulonephritis. Repeat BMP is in progress. 2. Fluid overload, symptomatically and by chest x-ray. IV fluids have already been stopped yesterday. We will give one dose of Lasix 40 mg IV and assess response. 3. Hypokalemia, we will replace once today's labs are back. 4. Hypoalbuminemia, likely representing malnutrition. Suggest nutritional consult for high protein containing supplements. 5. The above plan was discussed with the patient's RN. Richard Cook MD [facility]/MODL /[id number]
[2018-12-05] MEDS ORDERED: BENZONATATE 100 MG CAP PO PRN (13:45)
--- NOTE | 2018-12-05 14:23 | Diagnostic Imaging Report ---
CT of the chest, without contrast, 12/05/2018. History: Shortness of breath, concern for pneumonia. Comparison: Chest x-ray from 12/04/2018. Indium scan 12/03/2018. Technique: Multidetector CT scanning of the chest was performed from the level of the apices to the upper abdomen without contrast. Coronal and sagittal multiplanar reformations were obtained. RADIATION DOSE: Total DLP: 506 mGy*cm Dose modulation, iterative reconstruction, and/or weight based adjustment of the mA/kV was utilized to reduce the radiation dose to as low as reasonably achievable. Discussion: Evaluation is limited without IV contrast. Chest: The heart is mildly enlarged. Left coronary artery calcifications are noted. The main pulmonary artery is dilated measuring 3.4 cm in transverse diameter. The thoracic aorta is within normal limits for size. There is no gross evidence of adenopathy. Patchy consolidation with air bronchograms is present the superior segment of the right lower lobe and right middle lobe. Small right pleural effusion is present. Patchy bilateral perihilar groundglass opacities are present. There is scattered left lung subsegmental atelectasis. Right IJ central catheter terminates near the cavoatrial junction. Limited evaluation of the upper abdomen shows normal adrenal glands. Bones and soft tissues: No acute abnormality. Degenerative changes are noted throughout the thoracic spine. IMPRESSION: 1. Cardiomegaly, pulmonary artery enlargement, and bilateral ground glass opacities suggestive of CHF. 2. Findings in the right lung suggestive of superimposed pneumonia. Signed by: Perez Junior on 12/05/2018 2:19 PM
--- NOTE | 2018-12-05 17:42 | Progress Note ---
DATE: 12/05/2018 CHIEF COMPLAINT: Lower extremity edema, generalized weakness and shortness of breath. SUBJECTIVE: The patient is lying in bed with no acute distress. Family at the bedside, discussed about CT chest results, which showed a pneumonia and a possible CHF. She is also noted to have coughing with pills pending swallowing test by a speech therapist. She denies any nausea, vomiting, chest pain, abdominal pain, fever, chills. PHYSICAL EXAMINATION: VITAL SIGNS: Temperature is 97.4, pulse is 95, respirations 19, blood pressure is 120/56, pulse ox is 94% on 3 L of nasal cannula. GENERAL: No acute distress. HEENT: Normocephalic, atraumatic. LUNGS: With decreased breath sounds and wheezing in the lower lobes. CARDIOVASCULAR: Regular rate and rhythm. ABDOMEN: Soft and nontender. Obese. NEUROLOGIC: Alert, awake, oriented x3. MUSCULOSKELETAL: Moves all extremities. Edema +2 noted bilaterally. Healing redness. SKIN: Mild redness and swelling in the bilateral lower extremities. LABORATORY DATA: WBC 15.2, hemoglobin is 9.9, hematocrit is 32.3, and platelet is 174. Sodium is 139, potassium is 3.3, creatinine is 2.31, estimated GFR 21. IMAGING DATA: CT chest showed cardiomegaly, pulmonary artery enlargement and bilateral ground-glass opacity suggestive of CHF. Findings also suggest right lung superimposed pneumonia. Indium scan showed evidence of diffuse inflammatory process in the right lungs with more focal inflammatory or infection process in the right upper lobe. IMPRESSION AND PLAN: 1. Sepsis, present on admission due to cellulitis and pneumonia. Continue doxycycline. We will consult with ID for further management. 2. Pneumonia at the right upper lobe per CT chest. We will defer to ID for further antibiotic management. 3. Acute kidney failure. Creatinine is 2.2. We will continue dialysis per Nephrology. 4. Hypotension. Midodrine has been decreased to 5 mg t.i.d. 5. Anemia of chronic disease, stable post transfusion. We will continue to monitor closely. 6. Acute deep venous thrombosis, status post IVC filter placement by Dr. Ndiaye. 7. Diabetes type 2. Continue sliding scale insulin coverage as needed. 8. High cholesterol. 9. History of peripheral arterial disease, deferred to Dr. Ndiaye. 10. Leukocytosis due to pneumonia, we will continue to trend WBCs and antibiotics per ID. 11. Debility. Continue working with PT. 12. Deep vein thrombosis prophylaxis. No chemical anticoagulation due to anemia. Dictated by GEORGE Chew Javi Blake MD MY/MODL /[id number] Seen and examined, discussed with Dr. Fletcher, will hold off on expanding antibiotic coverage. Agree with the findings and plan as documented by GEORGE Conti. RAÚLD
--- NOTE | 2018-12-05 19:36 | NUR ---
REPORT GIVEN TO ONCOMING NURSE. WALKING ROUNDS DONE. PATIENT IS RESTING IN BED. NO ACUTE DISTRESS NOTED. CALL LIGHT WITHIN REACH. BED IN THE LOWEST POSITION.
--- NOTE | 2018-12-05 19:38 | NUR ---
PT IS RESTING IN BED TALKING ON HER CELLPHONE. RESPIRATION IS EVEN AND UNLABORED, NO DISTRESS NOTED. BED IN THE LOWEST POSITION, LOCKED, BED ALARM, AND CALL LIGHT WITHIN REACH. WILL CONTINUE TO MONITOR.
[2018-12-05] MEDS: SENNA-S TABLET PO SCH (22:19)
[2018-12-06] VITALS (8 sets, daily range): BP systolic 101–135; BP diastolic 54–63
[2018-12-06] MEDS: IPRATROPIUM BROMIDE 0.02% 2.5 ML NEB NEB SCH ×4 (01:02→19:22)
[2018-12-06] MEDS: SODIUM BICARBONATE 650 MG TAB PO SCH ×4 (06:00→21:49)
[2018-12-06] MEDS: HYDROCORTISONE SOD SUCCINATE 100 MG VIAL IV SCH ×3 (06:17→21:49)
--- NOTE | 2018-12-06 06:58 | NUR ---
RECEIVED REPORT FROM OFF GOING NURSE. WALKING ROUNDS DONE. PATIENT IS RESTING IN BED. NO ACUTE DISTRESS NOTED. CALL LIGHT WITHIN REACH. BED IN THE LOWEST POSITION.
[2018-12-06] MEDS: INSULIN LISPRO 100 UNIT/1 ML 3ML VIAL SQ SCH ×4 (07:30→21:49)
[2018-12-06] MEDS: MIDODRINE HCL 5 MG TABLET PO SCH ×3 (08:00→15:45)
[2018-12-06 08:03] LABS: ALPHA 2 GLOBULIN URINE PEP 9.1 % (.)
[2018-12-06] MEDS: DOXYCYCLINE 100MG/NS 100ML 100 ML IV SCH ×2 (08:36→23:27)
[2018-12-06] MEDS: BUPROPION HCL 100 MG TAB PO SCH ×2 (09:00→16:05)
[2018-12-06 09:03] LABS: INR 1.18; PROTHROMBIN TIME 15.6 seconds (11.9-14.5)
[2018-12-06 09:18] LABS: ANION GAP 24.6 mmol/L (8-16); CALCIUM 7.9 mg/dL (8.4-10.2); CREATININE, SERUM 1.11 mg/dL (0.57-1.11); POTASSIUM 3.6 mmol/L (3.5-5.1)
[2018-12-06] MEDS: ALBUMIN 25% 25GM 100ML 100 ML IV SCH ×2 (09:44→21:48)
--- NOTE | 2018-12-06 10:31 | Progress Note ---
DATE: 12/06/2018 SUBJECTIVE: This is a 68-year-old female with past medical history of type 2 diabetes, peripheral neuropathy, hypertension, acute renal injury, deep venous thrombosis, pneumonia, seen at bedside this morning. She appears to be resting comfortably. Family is present at bedside. No acute issues overnight. No new pedal complaints at this time. Denies nausea, vomiting, fever, chills, chest pain, or shortness of breath. PHYSICAL EXAMINATION: GENERAL: Alert and oriented x3. Does not appear to be in any acute distress. VITAL SIGNS: Today, temperature 98.2, heart rate 89, respiratory rate 18, blood pressure 119/57, and pulse ox is 94% on 3 L nasal cannula. PROBLEM FOCUSED LOWER EXTREMITY PHYSICAL EXAM: VASCULAR: Dorsalis pedis and posterior tibial pulses are faintly palpable. Capillary refill time is less than 3 seconds in all digits. + 2 pitting edema, still present with erythema, edema, however, does appear to be improving since previous visit. NEUROLOGICAL: Sensation is diminished to light touch bilateral. MUSCULOSKELETAL: Deferred at this time. DERMATOLOGICAL: Superficial blisters noted to the anterior camara is fully epithelialized at this time. Erythema and edema are still noted to the periwound, however, does appear to be improved. LABORATORY DATA: White blood cell count is 15.2, hemoglobin 9.9, hematocrit 32.3, and platelet count 174. Sodium 139, potassium 3.3, chloride 98, BUN 18, creatinine 2.31, glucose 254. IMAGING: Chest CT reveals cardiomegaly, pulmonary artery enlargement and bilateral ground-glass opacities, suggestive of congestive heart failure. Findings in the right lung suggestive of superimposed pneumonia. ASSESSMENT: 1. Left lower extremity cellulitis, bilateral left greater than right. 2. Type 2 diabetes, peripheral neuropathy. 3. Acute kidney injury. 4. Acute deep vein thrombosis. 5. Congestive heart failure with superimposed pneumonia. PLAN: The patient was seen and evaluated. Discussed condition and treatment options with the patient in detail. Again, the wound on the anterior aspect of the left camara is fully epithelialized. Does not require further wound care at this time. We will leave open to the air. The patient's hypertension, hypotension, and tachycardia are improved. White blood cell count appears to be trending down. Again, I do not believe that the patient's sepsis are elevated. I did not believe the patient's sepsis or leukocytosis is due to lower extremity osteomyelitis. However, continue to recommend IV antibiotics per primary and Infectious Disease. The Podiatry Service will continue to monitor as inpatient. CANDIS Lopez/MODL /[id number]
[2018-12-06] MEDS ORDERED: ONDANSETRON HCL 4 MG ORAL DISINTEGRATING TAB PO PRN (11:00)
[2018-12-06] MEDS ORDERED: MIDAZOLAM HCL 2 MG/2 ML VIAL ONE (11:48)
[2018-12-06] MEDS ORDERED: FENTANYL CITRATE/PF 100MCG/2 ML INJ ONE (11:48)
--- NOTE | 2018-12-06 12:15 | NUR ---
PATIENT OFF UNIT FOR BIOPSY AT THIS TIME.
--- NOTE | 2018-12-06 13:12 | NUR ---
PATIENT BACK TO UNIT AT THIS TIME.
[2018-12-06] MEDS: PANTOPRAZOLE SOD 40 MG TABEC PO SCH (13:25)
[2018-12-06] MEDS: FLUCONAZOLE 100 MG TAB PO SCH (14:30)
[2018-12-06 15:36] LABS: ANION GAP 21.6 mmol/L (8-16); CALCIUM 7.6 mg/dL (8.4-10.2); CREATININE, SERUM 2.75 mg/dL (0.57-1.11); POTASSIUM 3.6 mmol/L (3.5-5.1)
--- NOTE | 2018-12-06 15:52 | Progress Note ---
DATE: 12/06/2018 Cardiology Progress Note SUBJECTIVE: Denies any chest pain or shortness of breath. OBJECTIVE: VITAL SIGNS: Temperature 97.4, heart rate 85, respiratory rate 18, blood pressure 101/54, and O2 saturation 96% on nasal cannula 3 L/minute. GENERAL: In no acute distress, alert. NECK: No JVD. CHEST: Clear to auscultation. CARDIOVASCULAR: Regular rate and rhythm. Normal S1, S2. No S3 or S4. Systolic ejection murmur 1/6. ABDOMEN: Soft, nontender. Bowel sounds positive. EXTREMITIES: 1+ edema of both lower extremities. CARDIOVASCULAR MEDICATIONS: Reviewed. Hydrocortisone 50 mg every 8 hours IV. Midodrine was noted to be discontinued by Nephrology. We will defer blood pressure optimization to their expertise. ASSESSMENT: 1. [id number] diastolic heart failure, optimization of volume status with intermittent dialysis. 2. History of deep venous thrombosis, status post IVC filter placement. Currently, anticoagulation on hold, pending renal biopsy. Monitor H and H. 3. History of duodenal ulcer and gastritis on EGD. 4. Hypertension, diabetes, peripheral vascular disease, anemia requiring PRBC transfusions, and metabolic acidosis all observed and being optimized medically and with intermittent dialysis. MD DAVID Graves/PRECIOUS /[id number]
--- NOTE | 2018-12-06 16:25 | NUR ---
NOTIFIED DR. PASCUAL OF CREATININE OF 2.75, NO NEW ORDERS RECEIVED.
--- NOTE | 2018-12-06 17:15 | Diagnostic Imaging Report ---
PROCEDURE: Ultrasound-guided nonfocal renal biopsy Procedural Personnel Attending physician(s): Stacia Castelan MD Fellow physician(s): None Resident physician(s): None Advanced practice provider(s): None Pre-procedure diagnosis: Acute kidney injury Post-procedure diagnosis: Same Indication: Histopathologic diagnosis Previous biopsy of same target (QCDR): No Additional clinical history: None Complications: No immediate complications. IMPRESSION: Ultrasound-guided nonfocal biopsy of right kidney. Plan: Specimen(s) sent for evaluation. PROCEDURE SUMMARY: - Percutaneous US-guided right kidney biopsy - Additional procedure(s): None PROCEDURE DETAILS: Pre-procedure Reference imaging for biopsy target: None Consent: Informed consent for the procedure including risks, benefits and alternatives was obtained and time-out was performed prior to the procedure. Preparation: The site was prepared and draped using maximal sterile barrier technique including cutaneous antisepsis. Anesthesia/sedation Level of anesthesia/sedation: Moderate sedation (conscious sedation) Anesthesia/sedation administered by: Independent trained observer under attending supervision with continuous monitoring of the patient?s level of consciousness and physiologic status Total intra-service sedation time (minutes): 30 Imaging prior to biopsy The patient was positioned supine. Initial ultrasound was performed. Biopsy target: - Maximal diameter (cm): N/A - Location: Right renal cortex Other findings: None Biopsy Local anesthesia was administered. Under US guidance, the biopsy needle was advanced to the target and biopsy was performed. Coaxial needle: 17 gauge x 10cm Core needle biopsy device: [employer] 18 gauge Core needle size: 18 gauge x 15cm Number of core specimens: 3 On-site biopsy touch preparation: No Additional sampling recommendations: None Preliminary assessment of sample adequacy: Adequate Needle removal The biopsy needle was removed and a sterile dressing was applied. Tract embolization: Gelfoam slurry Imaging following biopsy Immediate post-biopsy ultrasound was performed. Post-biopsy imaging findings: No hematoma Additional Details Additional description of procedure: None Equipment details: None Specimens removed: Biopsy samples as detailed above Estimated blood loss (mL): Less than 10 Standardized report: [email or web address] Attestation Signer name: Stacia Castelan MD I attest that I was present for the entire procedure. I reviewed the stored images and agree with the report as written. Signed by: Stacia Castelan MD on 12/06/2018 5:11 PM
--- NOTE | 2018-12-06 19:07 | NUR ---
REPORT GIVEN TO ONCOMING NURSE. WALKING ROUNDS DONE. PATIENT IS RESTING IN BED. NO ACUTE DISTRESS NOTED. SON AT BEDSIDE. CALL LIGHT WITHIN REACH. BED IN THE LOWEST POSITION.
--- NOTE | 2018-12-06 19:10 | NUR ---
PT IS RESTING WITH SON AT BEDSIDE. RESPIRATION IS EVEN AND UNLABORED, NO DISTRESS NOTED. BED IN THE LOWEST POSITION, LOCKED, BED ALARM, AND CALL LIGHT WITHIN REACH. WILL CONTINUE TO MONITOR.
--- NOTE | 2018-12-06 19:20 | Progress Note ---
DATE: 12/06/2018 CHIEF COMPLAINT: Generalized weakness, bilateral lower extremity edema, and shortness of breath. SUBJECTIVE: Lying in bed with family at bedside. She had renal biopsy done earlier today. She denies any pain. No chest pain, fever, chills, nausea, or vomiting. Discussed plan of care with son at the bedside. PHYSICAL EXAMINATION: VITAL SIGNS: Temperature is 98.0, pulse is 101, respirations 20, blood pressure 108/56, and pulse ox is 95% on 3 L of oxygen. GENERAL: No acute distress. HEENT: Normocephalic, atraumatic. LUNGS: Decreased breath sounds and wheezing in the lower lobes. CARDIOVASCULAR: Regular rate and rhythm. ABDOMEN: Soft, nontender, obese. NEUROLOGIC: Alert, awake, and oriented x3. MUSCULOSKELETAL: Moves all extremities, edema +2 bilaterally. SKIN: Dry with healing cellulitis of the lower extremities. PSYCH: Calm. LABORATORY DATA: Sodium 143, potassium is 3.6. BUN 22, creatinine is 2.75. Estimated GFR is 17, glucose 288, calcium is 7.6. IMPRESSION: 1. Sepsis, present on admission due to cellulitis versus pneumonia. Continue doxycycline. Meropenem has been added for broad coverage. Dr. Fletcher on the case. Appreciate input. 2. Pneumonia, per CT chest. We will continue with IV antibiotics and neb treatments. 3. Acute kidney failure. Creatinine is 2.7 today. We will defer to Nephrology. 4. Hypotension. Continue midodrine at 5 mg b.i.d. 5. Anemia of chronic disease, stable post transfusion. We will continue to monitor closely and transfuse if hemoglobin is less than 7. 6. Acute deep venous thrombosis, status post IVC filter by Dr. Ndiaye. 7. Diabetes type 2. Continue sliding scale coverage as needed. 8. High cholesterol. 9. History of peripheral artery disease. 10. Leukocytosis, likely due to pneumonia. We will continue to trend. Continue antibiotics. The patient is afebrile. 11. Debility. Continue working with PT. 12. Deep vein thrombosis prophylaxis. No chemical anticoagulation due to anemia. PLAN: Appealing LTAC as she will need close monitoring for worsening kidney function. Dictated by Beth Conti, GEORGE MD STAN Luther/MODL /[id number]
[2018-12-06] MEDS ORDERED: MEROPENEM 500MG 500 MG in SODIUM CHLORIDE 0.9% 50ML 50 ML IV SCH (21:00)
[2018-12-06] MEDS: SENNA-S TABLET PO SCH (21:48)
[2018-12-06] MEDS: MEROPENEM 500MG/ NS 50ML 50 ML IV SCH (22:45)
[2018-12-07] VITALS (7 sets, daily range): BP systolic 106–135; BP diastolic 56–64
[2018-12-07] MEDS: IPRATROPIUM BROMIDE 0.02% 2.5 ML NEB NEB SCH ×4 (01:02→19:11)
[2018-12-07] MEDS: HYDROCORTISONE SOD SUCCINATE 100 MG VIAL IV SCH ×3 (06:18→22:00)
[2018-12-07] MEDS: SODIUM BICARBONATE 650 MG TAB PO SCH ×3 (06:18→22:00)
--- NOTE | 2018-12-07 06:53 | NUR ---
received shift change report from political advisor RN, pt sleeping, easily aroused, no signs of distress noted, will continue to assess
[2018-12-07 09:27] LABS: ANION GAP 17.5 mmol/L (8-16); CALCIUM 7.6 mg/dL (8.4-10.2); CREATININE, SERUM 2.61 mg/dL (0.57-1.11); POTASSIUM 3.5 mmol/L (3.5-5.1)
[2018-12-07] MEDS: MIDODRINE HCL 5 MG TABLET PO SCH ×3 (09:27→17:26)
[2018-12-07] MEDS: PANTOPRAZOLE SOD 40 MG TABEC PO SCH (09:27)
[2018-12-07] MEDS: INSULIN LISPRO 100 UNIT/1 ML 3ML VIAL SQ SCH ×4 (09:28→21:00)
[2018-12-07] MEDS: FLUCONAZOLE 100 MG TAB PO SCH (09:28)
[2018-12-07] MEDS: BUPROPION HCL 100 MG TAB PO SCH ×2 (09:28→17:25)
[2018-12-07] MEDS: MEROPENEM 500MG/ NS 50ML 50 ML IV SCH ×2 (09:36→21:00)
[2018-12-07] MEDS: ALBUMIN 25% 25GM 100ML 100 ML IV SCH ×2 (11:32→21:00)
--- NOTE | 2018-12-07 12:22 | Progress Note ---
DATE: 12/07/2018 Cardiology Progress Note SUBJECTIVE: Denies any chest pain or shortness of breath. OBJECTIVE: VITAL SIGNS: Temperature 97.4, heart rate 86, respiratory rate 17, blood pressure 126/60, O2 saturation 92%. BMI 40.7. GENERAL: In no acute distress, alert. NECK: No JVD. CHEST: Clear to auscultation. CARDIOVASCULAR: Regular rate and rhythm. Normal S1, S2. No S3 or S4. ABDOMEN: Soft. Bowel sounds positive. EXTREMITIES: 1+ edema. CARDIOVASCULAR MEDICATIONS: Reviewed. Midodrine 5 mg t.i.d., hydrocortisone 50 mg q.8 hours. STUDIES: Reviewed. Sodium 143, potassium 3.6, chloride 101, bicarbonate 24, BUN 22, creatinine 2.7, glucose 288. White blood cells 15, hemoglobin 9.9, platelets 174. PT 15.6, PTT 50.1, INR 1.18. AST 20, ALT 20, total bilirubin 0.7, alkaline phosphatase 188. ASSESSMENT: A 68-year-old woman presents with acute kidney injury requiring dialysis, acute on chronic diastolic heart failure, DVT status post IVC filter placement, peptic ulcer and gastritis, hypertension, diabetes, leg cellulitis and anemia. RECOMMENDATIONS: 1. Continue to monitor H and H. 2. Volume optimization per Nephrology. 3. Status post kidney biopsy, await results. 4. Await resuming anticoagulations as patient is postop day one post renal biopsy. Consider resuming after 5 to 7 days if no bleeding issues arise and if okay with other treating physicians. 5. Continue midodrine and hydrocortisone for now. Blood pressure improved. MD DAVID Graves/PRECIOUS /[id number]
[2018-12-07] MEDS: DOXYCYCLINE 100MG/NS 100ML 100 ML IV SCH ×2 (14:02→21:00)
--- NOTE | 2018-12-07 17:50 | Progress Note ---
DATE: 12/07/2018 CHIEF COMPLAINT: Generalized weakness, shortness of breath, and edema. SUBJECTIVE: Lying in bed with no acute distress. Daughter at the bedside discussed about plan of care. No events overnight. OBJECTIVE: VITAL SIGNS: Temperature is 98.2, pulse is 83, respirations 18, blood pressure 135/64, pulse ox is 93% on 2 L of O2. GENERAL: No acute distress. HEENT: Normocephalic and atraumatic. LUNGS: Decreased breath sounds and wheezing in the lower lobes. CARDIOVASCULAR: Regular rate and rhythm. ABDOMEN: Soft and nontender. Obese. NEUROLOGIC: Alert, awake, and oriented x3. MUSCULOSKELETAL: Moves all extremities. Edema 2+ bilaterally. SKIN: Dry, healing redness. PSYCH: Calm. LABORATORY DATA: Sodium is 144, potassium 3.5, creatinine is 3.61, estimated GFR is 18, and blood sugar is 249. IMPRESSION: 1. Sepsis present on admission due to cellulitis versus pneumonia. Continue on doxycycline and meropenem per Dr. Fletcher. 2. Pneumonia per CT. We will continue with IV antibiotics and neb treatments. 3. Acute kidney failure. Creatinine is 2.6. We will continue to monitor Nephrology on the case. 4. Hypotension. Continue midodrine 5 mg b.i.d. 5. Anemia of chronic disease, stable post transfusion. We will continue to monitor closely. 6. Acute DVT status post IVC filter by Dr. Ndiaye. 7. Diabetes type 2. Continue sliding scale coverage as needed. 8. High cholesterol. 9. History of peripheral artery disease, aware. Deferred to Dr. Ndiaye. 10. Leukocytosis likely due to pneumonia. We will continue to trend antibiotics. 11. Debility. Continue working with PT as tolerated. 12. Deep vein thrombosis prophylaxis. No chemical anticoagulation due to anemia. PLAN: We will await on LTAC approval. Continue to monitor kidney function. Dictated by GEORGE Chew Javi Blake MD MY/MODL /[id number]
--- NOTE | 2018-12-07 18:37 | NUR ---
change of shift report given to setter induction heating equipment RN, pt resting comfortably, no acute distress noted.
--- NOTE | 2018-12-07 19:15 | NUR ---
patient received awake, alert, lying quietly in bed. no c/o pain noted. pm assessment complete. patient instructed to call for assistance when needed.
--- NOTE | 2018-12-07 20:45 | NUR ---
Received report from nurse.
[2018-12-07] MEDS: SENNA-S TABLET PO SCH (21:00)
[2018-12-07] MEDS ORDERED: TEMAZEPAM 15 MG CAP PO ONE (23:15)
[2018-12-08] VITALS: BP 133/62
[2018-12-08] MEDS: IPRATROPIUM BROMIDE 0.02% 2.5 ML NEB NEB SCH ×3 (00:23→13:20)
[2018-12-08 04:00] VITALS: BP 119/57
[2018-12-08] MEDS: SODIUM BICARBONATE 650 MG TAB PO SCH (05:33)
[2018-12-08] MEDS: HYDROCORTISONE SOD SUCCINATE 100 MG VIAL IV SCH (05:33)
--- NOTE | 2018-12-08 06:56 | NUR ---
received shift change report from night clerk RN, pt resting in bed, semi-fowlers, no c/o pain, no signs of distress noted, daughter at bedside, call light within reach.
[2018-12-08 08:00] VITALS: BP 136/60
[2018-12-08 08:08] VITALS: BP 136/60
[2018-12-08] MEDS: FLUCONAZOLE 100 MG TAB PO SCH (08:16)
[2018-12-08] MEDS: INSULIN LISPRO 100 UNIT/1 ML 3ML VIAL SQ SCH ×2 (08:16→13:30)
[2018-12-08] MEDS: MIDODRINE HCL 5 MG TABLET PO SCH ×2 (08:16→13:28)
[2018-12-08] MEDS: PANTOPRAZOLE SOD 40 MG TABEC PO SCH (08:16)
[2018-12-08] MEDS: BUPROPION HCL 100 MG TAB PO SCH (08:17)
[2018-12-08] MEDS: ALBUMIN 25% 25GM 100ML 100 ML IV SCH (08:28)
[2018-12-08 09:24] LABS: ANION GAP 18.5 mmol/L (8-16); CALCIUM 7.3 mg/dL (8.4-10.2); CREATININE, SERUM 2.44 mg/dL (0.57-1.11); POTASSIUM 3.5 mmol/L (3.5-5.1)
[2018-12-08] MEDS: MEROPENEM 500MG/ NS 50ML 50 ML IV SCH (11:09)
[2018-12-08 12:00] VITALS: BP 130/63
--- NOTE | 2018-12-08 12:39 | NUR ---
LTAC FACILITY DISCHARGE INFORMATION PATIENT HAS BEEN ACCEPTED TO: NAME:[facility] ADDRESS:[id number] [place] [address], [place] ACCEPTING WOOD GOUGER:ANETTE OVERTON ACCEPTING MD:DR MICHAEL ROOM:[id number] NURSE CALL REPORT TO: [phone] THE FOLLOWING DOCUMENTS MUST ACCOMPANY PATIENT FOR TRANSFER: COPIED CHART:CLINICALS MOT COMPLETED AND LEFT AT NURSES STATION, NURSE ISIAH NOTIFIED.
--- NOTE | 2018-12-08 14:58 | NUR ---
called report to [facility] who is receiving pt in transfer.
[2018-12-08 16:00] VITALS: BP 132/64
--- NOTE | 2018-12-08 17:15 | Progress Note ---
DATE: 12/08/2018 Cardiology Progress Note. SUBJECTIVE: Denies any chest pain or shortness of breath. OBJECTIVE: VITAL SIGNS: Temperature 97.4, heart rate 85, respiratory rate 20, blood pressure 136/60, O2 saturation 98%, and BMI 40.7. GENERAL: In no acute distress. Alert, active, oriented x3. NECK: No JVD. CHEST: Clear to auscultation. CARDIOVASCULAR: Regular rate and rhythm. Normal S1, S2. ABDOMEN: Soft. Bowel sounds positive. EXTREMITIES: 1+ edema, overall improved and her edema to the skin bilaterally, the left distal leg. CARDIOVASCULAR MEDICATIONS: Have been reviewed. 1. Midodrine 5 mg t.i.d. 2. Hydrocortisone 50 mg every 8 hours. 3. Albumin as needed. STUDIES: Reviewed, sodium 145, potassium 3.5, chloride 101, bicarbonate 29, BUN 28, creatinine 2.4, glucose 291. White blood cells 13, hemoglobin 9.9, platelets 174. INR 1.1, AST 20, ALT 20. 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 1. Fecal occult blood test positive anemia status post transfusion, have done, actively bleeding duodenal ulcer and gastritis. 2. Diabetes mellitus, hypertension, morbid obesity. RECOMMENDATIONS: The patient is status post recent renal biopsy and anticoagulation remains currently on hold for this reason as well as for an H and H drops. At a later date, can revisit after I suggest 5 to 7 days post biopsy of the trial off anticoagulation, which can be performed as outpatient and preferably with reversible anticoagulant such as warfarin. For now, continue current cardiovascular medications. The patient appears to be having slight improvement in counts close monitoring by Nephrology upon discharge. She is strongly encouraged. Further recommendations depending on clinical course. Srinivas Khalil MD AFTy/COLEL /[id number]
--- NOTE | 2018-12-09 04:08 | Discharge Summary ---
PCP: Dr. Tim Johnson. FINAL DIAGNOSES: 1. Sepsis, present on admission due to cellulitis and pneumonia. 2. Acute kidney failure. 3. Urinary tract infection. 4. Hypotension. 5. Anemia of chronic disease. 6. Acute deep venous thrombosis, status post IVC filter placement. 7. Diabetes type 2. 8. High cholesterol. 9. History of peripheral arterial disease. 10. Debility. CONSULTANTS: 1. Dr. Ndiaye with Cardiology. 2. Dr. Knight with Nephrology. 3. Dr. Lema with GI. 4. Dr. Fletcher with ID. 5. Dr. Maurer with Podiatry. PROCEDURES: 1. IVC filter placement for acute DVT. 2. EGD to rule out gastritis. 3. Dialysis. HISTORY: Per HPI. HOSPITAL COURSE: This is a 68-year-old female, who presented with sepsis on admission due to cellulitis and pneumonia. She was started on IV antibiotics for cellulitis and edema in the lower extremity. Cardiology was consulted and venous Doppler was done, which showed acute DVT. IVC filter was placed as she could not tolerate anticoagulation due to gastritis and anemia. She was transfused with a total of 2 units of PRBCs. GI was also consulted and performed an EGD. No bleeding ulcer noted. She continued to worsen, kidney function continue to worsen, so Nephrology was consulted and a catheter was placed and initiated on dialysis for acute renal failure. Infectious Disease continued to manage her antibiotics. CT of the lower extremities showed possible osteomyelitis. MRI also showed probable osteomyelitis. Indium scan showed inflammatory process in the right lung and more focal inflammatory or infection process at the right upper lobe. Her antibiotics regimen was broadened by adding meropenem and urine culture had also shown Ciera, which she was started on Diflucan for. Today, creatinine is 2.44. Catheter in place in case of need for dialysis. She will be transferring to LTAC for IV antibiotics, monitoring of kidney functions, and physical therapy. The vital signs are stable, afebrile, mild shortness of breath, and debilitated. We will discharge to LTAC for further management. PHYSICAL EXAMINATION: VITAL SIGNS: Temperature 97.4, pulse is 82, blood pressure is 136/60, pulse ox is 94% on 2 L of oxygen. GENERAL: No acute distress. HEENT: Normocephalic and atraumatic. LUNGS: Decreased breath sounds and wheezing in the upper lobe. CARDIOVASCULAR: Regular rate and rhythm. ABDOMEN: Soft, nontender, obese. NEUROLOGIC: Alert, awake, and oriented x3. MUSCULOSKELETAL: Moves all extremities. Bilateral lower extremities improved. SKIN: Dry healing redness in the lower extremities. PSYCH: Calm. CONDITION AT DISCHARGE: Improved and stable. DISCHARGE MEDICATIONS: See APR. FOLLOWUP: Follow up with Dr. Knight at [facility]. Follow up with Dr. Fletcher, Dr. Johnson, and Podiatry at [facility]. TIME SPENT: Total time of discharge is 40 minutes. Dictated by GEORGE Chew Nedraching Uche Blake MD MY/MODL /[id number] cc: Tim Johnson
== END 2018-12-08 15:50 | DRG 853 ==
LOC: ER 09:43 → ERHOLD 13:42 → MED/SURG3 18:23
PROVIDERS: ADMIT Internal Medicine; ATTEND Internal Medicine
PROC: 06H03DZ Insertion of Intraluminal Device into Inferior Vena Cava, Percutaneous Approach (ICD-10-PCS; principal; 2018-11-18)
PROC: 0DB68ZX Excision of Stomach, Via Natural or Artificial Opening Endoscopic, Diagnostic (ICD-10-PCS; 2018-11-20)
PROC: 02HV33Z Insertion of Infusion Device into Superior Vena Cava, Percutaneous Approach (ICD-10-PCS; 2018-11-26)
PROC: B548ZZA Ultrasonography of Superior Vena Cava, Guidance (ICD-10-PCS; 2018-11-26)
PROC: 02HV33Z Insertion of Infusion Device into Superior Vena Cava, Percutaneous Approach (ICD-10-PCS; 2018-11-27)
PROC: B548ZZA Ultrasonography of Superior Vena Cava, Guidance (ICD-10-PCS; 2018-11-27)
PROC: 5A1D70Z Performance of Urinary Filtration, Intermittent, Less than 6 Hours Per Day (ICD-10-PCS; 2018-11-29)
PROC: 5A1D70Z Performance of Urinary Filtration, Intermittent, Less than 6 Hours Per Day (ICD-10-PCS; 2018-11-30)
PROC: 5A1D70Z Performance of Urinary Filtration, Intermittent, Less than 6 Hours Per Day (ICD-10-PCS; 2018-12-03)
PROC: 30233N1 Transfusion of Nonautologous Red Blood Cells into Peripheral Vein, Percutaneous Approach (ICD-10-PCS; 2018-12-03)
PROC: 0TB03ZX Excision of Right Kidney, Percutaneous Approach, Diagnostic (ICD-10-PCS; 2018-12-06)
DX: A41.9 Sepsis, unspecified organism (principal); I50.33 Acute on chronic diastolic (congestive) heart failure; K26.0 Acute duodenal ulcer with hemorrhage; J18.9 Pneumonia, unspecified organism; N17.0 Acute kidney failure with tubular necrosis; L03.116 Cellulitis of left lower limb; I82.411 Acute embolism and thrombosis of right femoral vein; I82.533 Chronic embolism and thrombosis of popliteal vein, bilateral; N17.9 Acute kidney failure, unspecified; E87.2 Acidosis; D62 Acute posthemorrhagic anemia; B37.49 Other urogenital candidiasis; M86.8X6 Other osteomyelitis, lower leg; I11.0 Hypertensive heart disease with heart failure; E11.51 Type 2 diabetes mellitus with diabetic peripheral angiopathy without gangrene; E11.65 Type 2 diabetes mellitus with hyperglycemia; Z82.49 Family history of ischemic heart disease and other diseases of the circulatory system; Z88.8 Allergy status to other drugs, medicaments and biological substances; E78.5 Hyperlipidemia, unspecified; E66.01 Morbid (severe) obesity due to excess calories; Z68.36 Body mass index [BMI] 36.0-36.9, adult; S80.12XA Contusion of left lower leg, initial encounter; T36.8X5A Adverse effect of other systemic antibiotics, initial encounter; T39.8X5A Adverse effect of other nonopioid analgesics and antipyretics, not elsewhere classified, initial encounter; Y92.230 Patient room in hospital as the place of occurrence of the external cause; E87.6 Hypokalemia; R23.8 Other skin changes; K29.70 Gastritis, unspecified, without bleeding; K29.80 Duodenitis without bleeding; N32.0 Bladder-neck obstruction; E83.42 Hypomagnesemia; R13.10 Dysphagia, unspecified; R09.02 Hypoxemia
CPT/HCPCS: 36415; 36556; 37191; 43235; 43239; 50200; 71045; 71046; 71250; 74018; 74176; 74470; 76770; 76937; 76942; 77001; 80048; 80053; 80076; 80202; 81001; 81015; 81050; 82040; 82232; 82270; 82533; 82570; 82575; 82948; 83540; 83605; 83735; 83880; 84100; 84156; 84165; 84166; 84300; 84443; 84466; 85014; 85025; 85610; 85730; 86140; 86850; 86900; 86920; 87040; 87071; 87086; 87205; 87350; 88305; 88312; 90962; 93005; 93306; 93970; 94640; 97139; 99285; A9570; C1766; C1769; J0610; J1642; J1644; J1720; J1817; J1885; J1940; J2001; J2150; J2250; J2270; J2405; J2543; J3010; J3370; J3475; J3480; J7030; J7050; J7120; J7121; P9016; P9047; Q0162; Q9967